=== PATIENT | female | born 1985 | race Caucasian/White ===

== ENCOUNTER → 2018-03-02 | Outpatient (CLI) | payer OTHER ==
[2018-03-02 15:48] LABS: Basophils % (A) 1 %; Eosinophils # (A) 0.2 k/uL (0-0.7); Eosinophils % (A) 3 %; HCT 43.6 % (34.0-46.0); HGB 14.8 gm/dL (11.4-16.0); Lymphocytes # (A) 1.7 k/uL (1.0-4.8); Lymphocytes % (A) 26 %; MCH 28.6 pg (25.0-35.0); MCHC 33.8 g/dL (31.0-37.0); MCV 84.7 fL (80.0-100.0); Mean Platelet Volume 8.4; Monocytes # (A) 0.4 k/uL (0-1.0); Monocytes % (A) 6 %; Neutrophils # (A) 4.3 k/uL (1.3-7.7); Neutrophils % (A) 64 %; Platelet Count 252 k/uL (150-450); RBC 5.15 m/uL (3.80-5.40); RDW 13.8 % (11.5-15.5); WBC 6.8 k/uL (3.8-10.6)
[2018-03-02 16:06] LABS: ALT 34 U/L (9-52); AST 24 U/L (14-36); Albumin 4.6 g/dL (3.5-5.0); Alkaline Phosphatase 102 U/L (38-126); Anion Gap 12 mmol/L; Blood Urea Nitrogen 13 mg/dL (7-17); Calcium 9.8 mg/dL (8.4-10.2); Carbon Dioxide 26 mmol/L (22-30); Chloride 104 mmol/L (98-107); Glucose 108 mg/dL (74-99); Magnesium 1.8 mg/dL (1.6-2.3); Potassium 4.5 mmol/L (3.5-5.1); Sodium 142 mmol/L (137-145); Total Bilirubin 0.4 mg/dL (0.2-1.3); Total Protein 7.3 g/dL (6.3-8.2)
== END | disposition home or self-care (01) ==
LOC: LABWHC1 15:26
PROVIDERS: ATTEND Internal Medicine Medical Oncology
DX: C54.1 Malignant neoplasm of endometrium (principal)
CPT/HCPCS: 36415; 80053; 83735; 85025

== ENCOUNTER 2018-11-16 22:01 | Emergency (ER) | payer MEDICARE, OTHER ==
[2018-11-16 22:28] LABS: Glucose,Whole Blood 264 mg/dL (75-99)
--- NOTE | 2018-11-16 22:28 | ED ---
Neuro HPI - General Stated Complaint: Stroke Time Seen by Provider: 11/16/18 22:06 Source: patient, EMS Mode of arrival: EMS Limitations: no limitations - History of Present Illness Is the patient presenting with stroke symptoms?: Yes Last Known Well Date: 11/16/18 Last Known Well Time: 20:30 -: hour(s) (2) Initial Comments: This patient is a 33-year-old woman who presents to be evaluated for possible stroke. The patient relates that she was driving tonight between 8 and 8:30 PM when she felt like the left side of her body was going numb. The patient stopped and had her niece drive her home. Was reported that she developed left sided weakness. EMS was called and further examined the patient had significant left-sided arm and leg weakness. Patient denies other symptoms. History reveals she had very similar presentation in 2016, and was seen at [facility] in [place], [place]. She states that she made a full recovery with no deficit. Location: left arm, left leg History of same: Yes Place: outdoors Severity: moderate Quality: weak, numb Improves With: time Worsens With: none On Anticoagulants: No Context: sudden onset Associated Symptoms: denies other symptoms Treatments Prior to Arrival: oxygen - Related Data Home Medications: Home Medications Medication Instructions Recorded Confirmed Insulin Aspart [NovoLOG Flexpen] See Protocol SQ AC-TID 11/16/18 11/16/18 Insulin Glargine,Hum.rec.anlog 12 unit SQ HS 11/16/18 11/16/18 [Basaglar Kwikpen U-100] Zolpidem Tartrate [Ambien] 10 mg PO HS PRN 11/16/18 11/16/18 metFORMIN HCL 1,000 mg PO BID 11/16/18 11/16/18 oxyCODONE-APAP 10-325MG [Percocet 1 tab PO QID PRN 11/16/18 11/16/18 10-325 mg] Allergies/Adverse Reactions: Allergies Allergy/AdvReac Type Severity Reaction Status Date / Time ampicillin Allergy Unknown Verified 11/16/18 22:24 Childhood ciprofloxacin [From Cipro] Allergy Anaphylaxis Verified 11/16/18 22:24 hydromorphone [From Dilaudid] Allergy Rash/Hives Verified 11/16/18 22:24 promethazine [From Phenergan] Allergy Rash/Hives Verified 11/16/18 22:24 Review of Systems ROS Statement: Those systems with pertinent positive or pertinent negative responses have been documented in the HPI. ROS Other: All systems not noted in ROS Statement are negative. Constitutional: Denies: fever, chills Eyes: Denies: vision change ENT: Denies: hearing loss Respiratory: Denies: cough, dyspnea Cardiovascular: Denies: chest pain, palpitations, orthopnea, syncope Gastrointestinal: Denies: abdominal pain, vomiting, diarrhea Genitourinary: Denies: dysuria, hematuria Musculoskeletal: Denies: back pain Skin: Reports: rash Neurological: Reports: weakness. Denies: headache, numbness, paresthesias, confusion Hematological/Lymphatic: Denies: easy bleeding General Exam General appearance: alert, in no apparent distress Head exam: Present: atraumatic, normocephalic Eye exam: Present: normal appearance. Absent: scleral icterus, conjunctival injection ENT exam: Present: normal oropharynx Neck exam: Present: normal inspection, full ROM Respiratory exam: Present: normal lung sounds bilaterally. Absent: respiratory distress, wheezes, rales, rhonchi, stridor Cardiovascular Exam: Present: regular rate, normal rhythm, normal heart sounds. Absent: systolic murmur, diastolic murmur, rubs, gallop GI/Abdominal exam: Present: soft. Absent: distended, tenderness, guarding, rebound, rigid, mass Extremities exam: Present: normal inspection, normal capillary refill. Absent: pedal edema, calf tenderness Back exam: Present: normal inspection. Absent: CVA tenderness (R), CVA tenderness (L) Neurological exam: Present: alert, oriented X3, CN II-XII intact. Absent: motor sensory deficit Expanded Neurological exam: Present: protecting the airway Patient oriented to: Present: person, place, time Speech: Present: fluid speech Cranial nerves: EOM's Intact: Normal, Gag Reflex: Normal, Tongue Deviation: Normal, Facial Sensation: Normal, Facial Palsy with Forehead Movement: Normal, Facial Palsy without Forehead Movement: Normal Motor strength exam: RUE: 5, LUE: 5, RLE: 5, LLE: 5 Eye Response: (4) open spontaneously Motor Response: (6) obeys commands Verbal Response: (5) oriented Skin exam: Present: warm, dry, intact, normal color. Absent: rash Stroke MDM - Lab Data Result diagrams: 11/16/18 22:29 11/16/18 22:29 Lab Results 11/16/18 11/16/18 11/16/18 Range/Units 22:16 22:29 22:29 WBC 8.1 (3.8-10.6) k/uL RBC 4.46 (3.80-5.40) m/uL Hgb 13.3 (11.4-16.0) gm/dL Hct 40.5 (34.0-46.0) % MCV 90.9 (80.0-100.0) fL MCH 29.9 (25.0-35.0) pg MCHC 32.9 (31.0-37.0) g/dL RDW 13.6 (11.5-15.5) % Plt Count 189 (150-450) k/uL Neutrophils % 68 % Lymphocytes % 23 % Monocytes % 5 % Eosinophils % 3 % Basophils % 1 % Neutrophils # 5.5 (1.3-7.7) k/uL Lymphocytes # 1.8 (1.0-4.8) k/uL Monocytes # 0.4 (0-1.0) k/uL Eosinophils # 0.2 (0-0.7) k/uL Basophils # 0.0 (0-0.2) k/uL PT (9.0-12.0) sec INR (<1.2) APTT (22.0-30.0) sec Sodium (137-145) mmol/L Potassium (3.5-5.1) mmol/L Chloride (98-107) mmol/L Carbon Dioxide (22-30) mmol/L Anion Gap mmol/L BUN (7-17) mg/dL Creatinine (0.52-1.04) mg/dL Est GFR (CKD-EPI)AfAm (>60 ml/min/1.73 sqM) Est GFR (CKD-EPI)NonAf (>60 ml/min/1.73 sqM) Glucose (74-99) mg/dL POC Glucose (mg/dL) 264 H (75-99) mg/dL POC Glu Soap Boiler ID Shira Kaplan Calcium (8.4-10.2) mg/dL Total Bilirubin (0.2-1.3) mg/dL AST (14-36) U/L ALT (9-52) U/L Alkaline Phosphatase (38-126) U/L Total Creatine Kinase 65 (30-135) U/L CK-MB (CK-2) 0.3 (0.0-2.4) ng/mL CK-MB (CK-2) Rel Index 0.5 Troponin I <0.012 (0.000-0.034) ng/mL Total Protein (6.3-8.2) g/dL Albumin (3.5-5.0) g/dL 11/16/18 11/16/18 Range/Units 22:29 22:29 WBC (3.8-10.6) k/uL RBC (3.80-5.40) m/uL Hgb (11.4-16.0) gm/dL Hct (34.0-46.0) % MCV (80.0-100.0) fL MCH (25.0-35.0) pg MCHC (31.0-37.0) g/dL RDW (11.5-15.5) % Plt Count (150-450) k/uL Neutrophils % % Lymphocytes % % Monocytes % % Eosinophils % % Basophils % % Neutrophils # (1.3-7.7) k/uL Lymphocytes # (1.0-4.8) k/uL Monocytes # (0-1.0) k/uL Eosinophils # (0-0.7) k/uL Basophils # (0-0.2) k/uL PT 10.2 (9.0-12.0) sec INR 0.9 (<1.2) APTT 23.3 (22.0-30.0) sec Sodium 137 (137-145) mmol/L Potassium 3.8 (3.5-5.1) mmol/L Chloride 103 (98-107) mmol/L Carbon Dioxide 25 (22-30) mmol/L Anion Gap 9 mmol/L BUN 17 (7-17) mg/dL Creatinine 0.61 (0.52-1.04) mg/dL Est GFR (CKD-EPI)AfAm >90 (>60 ml/min/1.73 sqM) Est GFR (CKD-EPI)NonAf >90 (>60 ml/min/1.73 sqM) Glucose 249 H (74-99) mg/dL POC Glucose (mg/dL) (75-99) mg/dL POC Glu Soap Boiler ID Calcium 8.8 (8.4-10.2) mg/dL Total Bilirubin 0.3 (0.2-1.3) mg/dL AST 16 (14-36) U/L ALT 29 (9-52) U/L Alkaline Phosphatase 102 (38-126) U/L Total Creatine Kinase (30-135) U/L CK-MB (CK-2) (0.0-2.4) ng/mL CK-MB (CK-2) Rel Index Troponin I (0.000-0.034) ng/mL Total Protein 6.4 (6.3-8.2) g/dL Albumin 3.6 (3.5-5.0) g/dL Past Medical History Past Medical History: Cancer Additional Past Medical History / Comment(s): stage 3 uterus cancer History of Any Multi-Drug Resistant Organisms: None Reported Past Surgical History: Adenoidectomy, Hysterectomy, Tonsillectomy Past Psychological History: Anxiety Smoking Status: Current every day smoker Past Alcohol Use History: Rare Past Drug Use History: None Reported Course Vital Signs 11/16/18 11/16/18 11/16/18 22:18 22:25 22:40 Temperature 98.3 F Pulse Rate 78 91 94 Respiratory 18 18 18 Rate Blood Pressure 153/85 136/96 135/85 O2 Sat by Pulse 98 97 96 Oximetry 11/16/18 11/16/18 11/17/18 22:55 23:10 00:00 Temperature Pulse Rate 94 94 102 H Respiratory 18 16 18 Rate Blood Pressure 135/85 134/77 102/72 O2 Sat by Pulse 97 100 98 Oximetry 11/17/18 11/17/18 11/17/18 00:48 01:48 02:06 Temperature 98.1 F Pulse Rate 87 98 Respiratory 16 18 Rate Blood Pressure 116/80 105/78 O2 Sat by Pulse 98 95 Oximetry - Reevaluation(s) Reevaluation #1: 11/17/18 00:52 The case is discussed with Dr. Talbot with the stroke team who sts that given the rapid resolution of her symptoms, she is not TPA candidate. I discussed with patient that she does require neurology consultation and discussed options for this and she requests to go to [facility]. I discussed case with Dr. Mostello there who will accept patient for transfer. Disposition Clinical Impression: Transient cerebral ischemia Disposition: OTHER INSTITUTION NOT DEFINED Condition: Fair Is patient prescribed a controlled substance at d/c from ED?: No Referrals: None,Stated [REFERRING] - 1-2 days - Out of Hospital Transfer - Req. Specs Out of Hospital Transfer - Requested Specifics: Other Emergency Center
--- NOTE | 2018-11-16 22:32 | CT ---
EXAM: CT Head Without Intravenous Contrast CLINICAL HISTORY: Neuro Deficits TECHNIQUE: Axial computed tomography images of the head/brain without intravenous contrast. DLP is 1005 mGy-cm. This CT exam was performed using one or more of the following dose reduction techniques: automated exposure control, adjustment of the mA and/or kV according to patient size, and/or use of iterative reconstruction technique. COMPARISON: No relevant prior studies available. FINDINGS: Brain: Unremarkable. No hemorrhage. No significant white matter disease. No edema. Ventricles: Unremarkable. No ventriculomegaly. Bones/joints: Unremarkable. No acute fracture. Soft tissues: Unremarkable. Sinuses: Unremarkable as visualized. No acute sinusitis. Mastoid air cells: Unremarkable as visualized. No mastoid effusion. IMPRESSION: Normal head/brain CT.
[2018-11-16 22:41] LABS: Basophils % (A) 1 %; Eosinophils # (A) 0.2 k/uL (0-0.7); Eosinophils % (A) 3 %; HCT 40.5 % (34.0-46.0); HGB 13.3 gm/dL (11.4-16.0); Lymphocytes # (A) 1.8 k/uL (1.0-4.8); Lymphocytes % (A) 23 %; MCH 29.9 pg (25.0-35.0); MCHC 32.9 g/dL (31.0-37.0); MCV 90.9 fL (80.0-100.0); Mean Platelet Volume 8.3; Monocytes # (A) 0.4 k/uL (0-1.0); Monocytes % (A) 5 %; Neutrophils # (A) 5.5 k/uL (1.3-7.7); Neutrophils % (A) 68 %; Platelet Count 189 k/uL (150-450); RBC 4.46 m/uL (3.80-5.40); RDW 13.6 % (11.5-15.5); WBC 8.1 k/uL (3.8-10.6)
[2018-11-16 22:49] LABS: ALT 29 U/L (9-52); AST 16 U/L (14-36); Albumin 3.6 g/dL (3.5-5.0); Alkaline Phosphatase 102 U/L (38-126); Anion Gap 9 mmol/L; Blood Urea Nitrogen 17 mg/dL (7-17); Calcium 8.8 mg/dL (8.4-10.2); Carbon Dioxide 25 mmol/L (22-30); Chloride 103 mmol/L (98-107); Glucose 249 mg/dL (74-99); Potassium 3.8 mmol/L (3.5-5.1); Sodium 137 mmol/L (137-145); Total Bilirubin 0.3 mg/dL (0.2-1.3); Total Protein 6.4 g/dL (6.3-8.2)
[2018-11-16 22:56] LABS: INR 0.9 (<1.2); Partial Thromboplastin Time 23.3 sec (22.0-30.0); Prothrombin Time 10.2 sec (9.0-12.0)
[2018-11-16 22:58] LABS: Creatine Kinase 65 U/L (30-135)
[2018-11-16 23:11] LABS: Creatine Kinase MB 0.3 ng/mL (0.0-2.4); Troponin I <0.012 ng/mL (0.000-0.034)
--- NOTE | 2018-11-16 23:30 | XR ---
EXAM: XR Chest, 1 View CLINICAL HISTORY: altered mental status TECHNIQUE: Frontal view of the chest. COMPARISON: No relevant prior studies available. FINDINGS: Lungs: Unremarkable. No consolidation. Pleural space: Unremarkable. No pneumothorax. Heart: Unremarkable. No cardiomegaly. Mediastinum: Unremarkable. Bones/joints: Unremarkable. IMPRESSION: Unremarkable appearance to the lungs.
--- NOTE | 2018-11-16 23:30 | CT ---
EXAM: CT Angiography Head With Intravenous Contrast CLINICAL HISTORY: Neuro Deficits TECHNIQUE: Axial computed tomographic angiography images of the head with intravenous contrast using CT angiography protocol. 65ml of Isovue 370/35ml wasted and 50ml saline. DLP is 634 mGy-cm. This CT exam was performed using one or more of the following dose reduction techniques: automated exposure control, adjustment of the mA and/or kV according to patient size, and/or use of iterative reconstruction technique. 3D and MIP reconstructed images were created and reviewed. Coronal and sagittal reformatted images were created and reviewed. COMPARISON: No relevant prior studies available. FINDINGS: Right internal carotid artery: No acute findings. Intracranial segment is patent with no significant stenosis. No aneurysm. Right anterior cerebral artery: Unremarkable. No occlusion or significant stenosis. No aneurysm. Right middle cerebral artery: Unremarkable. No occlusion or significant stenosis. No aneurysm. Right posterior cerebral artery: Unremarkable. No occlusion or significant stenosis. No aneurysm. Right vertebral artery: Unremarkable as visualized. Left internal carotid artery: No acute findings. Intracranial segment is patent with no significant stenosis. No aneurysm. Left anterior cerebral artery: Unremarkable. No occlusion or significant stenosis. No aneurysm. Left middle cerebral artery: Unremarkable. No occlusion or significant stenosis. No aneurysm. Left posterior cerebral artery: Unremarkable. No occlusion or significant stenosis. No aneurysm. Left vertebral artery: Unremarkable as visualized. Basilar artery: Unremarkable. No occlusion or significant stenosis. No aneurysm. IMPRESSION: Normal head CTA. EXAM: CT Angiography Neck With Intravenous Contrast CLINICAL HISTORY: CT Reason: Neuro Deficits TECHNIQUE: Axial computed tomographic angiography images of the neck with intravenous contrast using CT angiography protocol. 65ml of Isovue 370/35ml wasted and 50ml saline. DLP is 634 mGy-cm. This CT exam was performed using one or more of the following dose reduction techniques: automated exposure control, adjustment of the mA and/or kV according to patient size, and/or use of iterative reconstruction technique. 3D and MIP reconstructed images were created and reviewed. Coronal and sagittal reformatted images were created and reviewed. Oblique reformatted images were created and reviewed. COMPARISON: No relevant prior studies available. FINDINGS: VASCULATURE: Right common carotid artery: Unremarkable. No significant stenosis. No dissection or occlusion. Right internal carotid artery: Unremarkable. Extracranial segment is patent with no significant stenosis. No dissection or occlusion. Right external carotid artery: Unremarkable. No occlusion. Right vertebral artery: Unremarkable. No significant stenosis. No dissection or occlusion. Left common carotid artery: Unremarkable. No significant stenosis. No dissection or occlusion. Left internal carotid artery: Unremarkable. Extracranial segment is patent with no significant stenosis. No dissection or occlusion. Left external carotid artery: Unremarkable. No occlusion. Left vertebral artery: Unremarkable. No significant stenosis. No dissection or occlusion. NECK: Bones/joints: No acute fracture. No dislocation. Soft tissues: Unremarkable as visualized. No mass. CAROTID STENOSIS REFERENCE USING NASCET CRITERIA: % ICA stenosis = (1 - narrowest ICA diameter/diameter of distal cervical ICA) x 100. Mild - <50% stenosis. Moderate - 50-69% stenosis. Severe - 70-94% stenosis. Near occlusion - 95-99% stenosis. Occluded - 100% stenosis. IMPRESSION: Normal neck CTA.
[2018-11-17] MEDS ORDERED: oxyCODONE-APAP 10-325MG 1 EACH TAB PO STA (00:50)
[2018-11-17] MEDS ORDERED: ASPIRIN 81 MG PO STA (00:54)
[2018-11-17 01:52] VITALS: BP 105/78; PULSE 98; RESP 18
[2018-11-17 02:07] VITALS: TEMP 98.1
== END 2018-11-17 02:09 | disposition short-term general hospital (02) ==
LOC: EC 22:01
DX: G45.9 Transient cerebral ischemic attack, unspecified (principal); F17.200 Nicotine dependence, unspecified, uncomplicated; Z88.0 Allergy status to penicillin; Z88.1 Allergy status to other antibiotic agents; Z88.5 Allergy status to narcotic agent; Z88.8 Allergy status to other drugs, medicaments and biological substances; Z79.4 Long term (current) use of insulin; Z85.42 Personal history of malignant neoplasm of other parts of uterus; Z90.710 Acquired absence of both cervix and uterus
CPT/HCPCS: 99285; 36415; 93005; 80053; 82550; 82553; 84484; 85025; 85610; 85730; 71045; 70496; 70450; 70498; Q9967

== ENCOUNTER 2019-08-09 08:25 | Day surgery (SDC) | payer MEDICARE, OTHER ==
[2019-08-07 16:17] VITALS: BMI 44.2
[~2019-08-09 08:25] MED LIST: LACTATED RINGERS 1,000 ML IV SCH; ONDANSETRON 4 MG/2 ML VIAL IVP PRN
[2019-08-09 08:55] VITALS: TEMP 97.4
[2019-08-09] MEDS ORDERED: LIDOCAINE 1% 20 ML VIAL (10MG/ML) FOR IV START INTRADERMA ONE (08:55)
[2019-08-09] MEDS ORDERED: LACTATED RINGERS 1,000 ML IV ONE (08:55)
[2019-08-09 09:03] LABS: Glucose,Whole Blood 144 mg/dL (75-99)
[2019-08-09] MEDS ORDERED: LIDOCAINE 1% INJ 10MG/ML (20 ML MDV) ONE (09:24)
[2019-08-09] MEDS ORDERED: KETAMINE 10 MG/ML 20 ML VIAL ONE (09:24)
[2019-08-09] MEDS ORDERED: PROPOFOL 10 MG/ML 20 ML VIAL IV ONE (09:24)
[2019-08-09] MEDS ORDERED: MIDAZOLAM 2 MG/2 ML VIAL ONE (09:24)
[2019-08-09] MEDS ORDERED: GLYCOPYRROLATE 0.2 MG/ML 2 ML VIAL ONE (09:24)
[2019-08-09] MEDS ORDERED: fentaNYL (PF) 50 MCG/ML 2 ML AMP ONE (09:24)
--- NOTE | 2019-08-09 10:10 | P.PCN ---
Date of Procedure: 08/09/19 Description of Procedure: Brief history: Patient is a pleasant scheduled for an elective upper endoscopy as well as colonoscopy as a part of evaluation of nausea and vomiting, and altered/change in bowel habits. Procedure performed: Esophagogastroduodenoscopy with biopsy Colonoscopy with biopsy and polypectomy Estimated blood loss: Minimal. Preoperative diagnosis: Nausea and vomiting, altered bowel habits Anesthesia: MAC Procedure: After informed consent was obtained from the patient was brought into the endoscopy unit and IV sedation was administered by anesthesia under continuous monitoring. Initially upper endoscopy was done. The Olympus GF 190 video endoscope was inserted into the mouth and esophagus intubated without any difficulty and was gradually advanced into the stomach and duodenum and carefully examined. The bulb and second part of the duodenum appeared normal, with biopsies taken to rule out celiac sprue. The scope was then withdrawn into the stomach adequately insufflated with air and upon careful examination the antrum and body, cardia and fundus appeared normal, with biopsies taken to rule out Helicobacter pylori. The scope was then withdrawn into the esophagus. The GE junction was located at 35 cm to the incisors, with biopsies taken to rule out evidence of reflux esophagitis. It appeared regular with no erythema erosions or ulcerations. Rest of the esophagus appeared normal. Patient tolerated the procedure well. At this time the patient continued to remain sedation. Initial digital rectal examination was normal. Olympus CF 190 video colonoscope was then inserted into the rectum and gradually advanced to the cecum without any difficulty. Careful examination was performed as the scope was gradually being withdrawn. The terminal ileum was intubated and appeared normal and biopsies. The prep was excellent. The cecum, ascending colon, transverse colon, descending colon, sigmoid colon and rectum appeared normal, with random biopsies taken of the right and left colon given altered bowel habits to rule out microscopic colitis. Diminutive 2 mm descending colon polyp removed with cold forcep polypectomy. Retroflexion was performed in the rectum and no lesions were noted. Patient tolerated the procedure well. Impression: 1. Normal upper endoscopy with no pathology seen. Biopsies taken of the GE junction, antrum and body, and duodenum. 2. Diminutive descending colon polyp removed with cold forceps. Biopsies of the terminal ileum, right colon and left colon. Recommendations: Findings of this examination were discussed with the patient. Okay to resume diet and medications. Continue current medical management. Await pathology from biopsies. Follow up in gastroenterology clinic as previously scheduled. Repeat colonoscopy in 5 years for history of colon polyps.
[2019-08-09 10:14] LABS: Glucose,Whole Blood 143 mg/dL (75-99)
[2019-08-09 10:50] VITALS: BP 120/87; PULSE 68; RESP 18
== END 2019-08-09 12:34 | disposition home or self-care (01) ==
LOC: ORWHC2ENDO 08:25
PROVIDERS: ATTEND Internal Medicine
DX: K29.50 Unspecified chronic gastritis without bleeding (principal); K21.0 Gastro-esophageal reflux disease with esophagitis; D12.4 Benign neoplasm of descending colon; J45.909 Unspecified asthma, uncomplicated; F17.200 Nicotine dependence, unspecified, uncomplicated; Z86.73 Personal history of transient ischemic attack (TIA), and cerebral infarction without residual deficits; Z79.899 Other long term (current) drug therapy; E11.9 Type 2 diabetes mellitus without complications; Z79.4 Long term (current) use of insulin
CPT/HCPCS: 88305; 45380; 43239; J2250; J2001; J3010; J2704

== ENCOUNTER → 2019-08-28 | Outpatient (CLI) | payer MEDICARE, OTHER ==
[2019-08-29 01:17] LABS: Amylase 35 U/L (23-121); C Reactive Protein <0.4 mg/dL (0.0-0.8)
== END | disposition home or self-care (01) ==
LOC: LABWHC1 15:19
PROVIDERS: ATTEND Internal Medicine
DX: R19.4 Change in bowel habit (principal)
CPT/HCPCS: 36415; 82150; 83690; 84439; 84443; 85652; 86140

== ENCOUNTER 2019-09-23 10:45 | Emergency (ER) | payer MEDICARE, OTHER ==
[2019-09-23] MEDS ORDERED: ADENOSINE 3 MG/ML 2 ML VIAL IVP STA (11:11)
[2019-09-23] MEDS ORDERED: SODIUM CHLORIDE 0.9% 1,000 ML IV STA (11:23)
[2019-09-23 11:40] LABS: Basophils # (A) 0.1 k/uL (0-0.2); Basophils % (A) 1 %; Eosinophils # (A) 0.2 k/uL (0-0.7); Eosinophils % (A) 2 %; HCT 40.9 % (34.0-46.0); Lymphocytes # (A) 2.9 k/uL (1.0-4.8); Lymphocytes % (A) 23 %; MCH 29.9 pg (25.0-35.0); MCHC 34.1 g/dL (31.0-37.0); MCV 87.5 fL (80.0-100.0); Mean Platelet Volume 9.6; Monocytes # (A) 0.7 k/uL (0-1.0); Monocytes % (A) 5 %; Neutrophils # (A) 8.4 k/uL (1.3-7.7); Neutrophils % (A) 68 %; Platelet Count 321 k/uL (150-450); RBC 4.67 m/uL (3.80-5.40); WBC 12.5 k/uL (3.8-10.6)
--- NOTE | 2019-09-23 11:40 | ED ---
General Adult HPI - General Chief complaint: Neuro Symptoms/Deficit Stated complaint: Lightheadedness Time Seen by Provider: 09/23/19 11:08 Source: patient, RN notes reviewed Mode of arrival: wheelchair Limitations: no limitations - History of Present Illness Initial comments: patient is a pleasant 34-year-old female presenting to the emergency Department with complaints of lightheadedness. Onset of symptoms was prior to arrival while in alevism. Patient also has palpitations. Patient feels that her heart is racing. Patient states palpitations or not as severe as it were previously. There is some mild associated tightness. No confusion. Patient did not pass out. No history of similar symptoms previously. No history of arrhythmia. - Related Data Home Medications Medication Instructions Recorded Confirmed Insulin Glargine,Hum.rec.anlog 18 unit SQ HS 11/16/18 09/23/19 [Basaglar Hermelindopen U-100] metFORMIN HCL 750 mg PO HS 11/16/18 09/23/19 oxyCODONE-APAP 10-325MG [Percocet 1 tab PO Q6H PRN 11/16/18 09/23/19 10-325 mg] Atorvastatin [Lipitor] 40 mg PO DAILY 08/08/19 09/23/19 Biotin 20,000 mcg PO BID 08/08/19 09/23/19 Dicyclomine [Bentyl] 20 mg PO QID PRN 08/08/19 09/23/19 Famotidine [Pepcid] 40 mg PO HS 08/08/19 09/23/19 Lisinopril [Zestril] 5 mg PO DAILY 08/08/19 09/23/19 Melatonin 5 - 10 mg PO HS PRN 08/08/19 09/23/19 Pantoprazole Sodium [Protonix] 40 mg PO DAILY 08/08/19 09/23/19 Prochlorperazine Maleate 10 mg PO Q8H PRN 08/08/19 09/23/19 SUMAtriptan SUCCINATE [Imitrex] 25 mg PO ONCE PRN 08/08/19 09/23/19 Topiramate [Topamax] 50 mg PO BID 08/08/19 09/23/19 tiZANidine [Zanaflex] 2 mg PO Q8HR PRN 08/08/19 09/23/19 INSULIN ASPART (NovoLOG) [NovoLOG See Protocol SQ AC-TID 09/23/19 09/23/19 (formulary)] Allergies Allergy/AdvReac Type Severity Reaction Status Date / Time ampicillin Allergy Unknown Verified 09/23/19 11:49 Childhood ciprofloxacin [From Cipro] Allergy Anaphylaxis Verified 09/23/19 11:49 hydromorphone [From Dilaudid] Allergy Rash/Hives Verified 09/23/19 11:49 promethazine [From Phenergan] Allergy Rash/Hives Verified 09/23/19 11:49 Review of Systems ROS Statement: Those systems with pertinent positive or pertinent negative responses have been documented in the HPI. ROS Other: All systems not noted in ROS Statement are negative. Constitutional: Denies: fever Eyes: Denies: eye pain ENT: Denies: ear pain Respiratory: Denies: cough, dyspnea Cardiovascular: Reports: as per HPI, palpitations Endocrine: Denies: fatigue Gastrointestinal: Denies: abdominal pain Genitourinary: Denies: dysuria Musculoskeletal: Denies: back pain Skin: Denies: lesions Neurological: Denies: headache Past Medical History Past Medical History: Asthma, Cancer, CVA/TIA, Diabetes Mellitus, GERD/Reflux Additional Past Medical History / Comment(s): stage 3 uterine cancer 2015, frequent nausea,vomiting & diarrhea for several months, TIA 2015, 2018-no residual effects History of Any Multi-Drug Resistant Organisms: None Reported Past Surgical History: Adenoidectomy, Hysterectomy, Tonsillectomy Additional Past Surgical History / Comment(s): colonoscopy Past Anesthesia/Blood Transfusion Reactions: No Reported Reaction Past Psychological History: Anxiety Smoking Status: Current every day smoker Past Alcohol Use History: None Reported Past Drug Use History: None Reported General Exam Limitations: no limitations General appearance: alert, in no apparent distress Head exam: Present: normocephalic Eye exam: Present: normal appearance, PERRL ENT exam: Present: normal oropharynx Neck exam: Present: normal inspection Respiratory exam: Present: normal lung sounds bilaterally Cardiovascular Exam: Present: tachycardia Expanded Peripheral pulses: 2+: Radial (R), Radial (L), Posterior Tibialis (R), Posterior Tibialis (L), Dorsalis Pedis (R), Dorsalis Pedis (L) GI/Abdominal exam: Present: soft. Absent: tenderness Extremities exam: Present: normal inspection. Absent: pedal edema, calf ten derness Neurological exam: Present: alert, oriented X3, CN II-XII intact. Absent: motor sensory deficit Expanded Motor strength exam: RUE: 5, LUE: 5, RLE: 5, LLE: 5 Eye Response: (4) open spontaneously Motor Response: (6) obeys commands Verbal Response: (5) oriented Psychiatric exam: Present: normal affect, normal mood Skin exam: Present: normal color Course Vital Signs 09/23/19 09/23/19 09/23/19 10:50 11:19 12:03 Temperature 98.2 F Pulse Rate 109 H 96 Pulse Rate [ 189 H Public Speaker ] Respiratory 18 20 Rate Blood Pressure 85/51 103/68 O2 Sat by Pulse 98 96 Oximetry - Reevaluation(s) Reevaluation #1: 09/23/19 11:39 repeat EKG shows normal sinus rhythm at 100. KS 150. QRS 92. QT 316. QTC 407. Normal axis. Normal QRS. No acute ST change. Patient feels significantly better following chemical cardioversion EKG Findings - EKG Comments: EKG Findings:: SVT with rate of 188. QRS 84. QT to 40. QTc 424. Normal axis. Normal QRS. Nonspecific ST-T. Procedures - Procedures Initial comment: patient did give verbal consent. Patient was chemically cardioverted with adenosine 6 mg without complication. Heart rate returned to normal sinus rhythm. Patient near symptom-free immediately following procedure. Medical Decision Making - Medical Decision Making Patient again reexamined and symptom-free. Patient updated on results and need for follow-up. Patient advised to avoid caffeine and stimulants and energy drinks. - Lab Data Result diagrams: 09/23/19 11:10 09/23/19 11:10 Lab Results 09/23/19 09/23/19 09/23/19 Range/Units 11:10 11:10 11:10 WBC 12.5 H (3.8-10.6) k/uL RBC 4.67 (3.80-5.40) m/uL Hgb 14.0 (11.4-16.0) gm/dL Hct 40.9 (34.0-46.0) % MCV 87.5 (80.0-100.0) fL MCH 29.9 (25.0-35.0) pg MCHC 34.1 (31.0-37.0) g/dL RDW 13.0 (11.5-15.5) % Plt Count 321 (150-450) k/uL Neutrophils % 68 % Lymphocytes % 23 % Monocytes % 5 % Eosinophils % 2 % Basophils % 1 % Neutrophils # 8.4 H (1.3-7.7) k/uL Lymphocytes # 2.9 (1.0-4.8) k/uL Monocytes # 0.7 (0-1.0) k/uL Eosinophils # 0.2 (0-0.7) k/uL Basophils # 0.1 (0-0.2) k/uL PT 10.4 (9.0-12.0) sec INR 1.0 (<1.2) APTT 24.7 (22.0-30.0) sec Sodium 138 (137-145) mmol/L Potassium 4.3 (3.5-5.1) mmol/L Chloride 108 H (98-107) mmol/L Carbon Dioxide 19 L (22-30) mmol/L Anion Gap 11 mmol/L BUN 22 H (7-17) mg/dL Creatinine 1.06 H (0.52-1.04) mg/dL Est GFR (CKD-EPI)AfAm 79 (>60 ml/min/1.73 sqM) Est GFR (CKD-EPI)NonAf 68 (>60 ml/min/1.73 sqM) Glucose 213 H (74-99) mg/dL Calcium 9.9 (8.4-10.2) mg/dL Magnesium 1.6 (1.6-2.3) mg/dL Total Bilirubin 0.6 (0.2-1.3) mg/dL AST 28 (14-36) U/L ALT 22 (4-34) U/L Alkaline Phosphatase 110 (38-126) U/L Total Protein 7.3 (6.3-8.2) g/dL Albumin 4.4 (3.5-5.0) g/dL TSH 7.980 H (0.465-4.680) mIU/L Free T4 1.46 (0.78-2.19) ng/dL Free T3 pg/mL 4.0 (2.8-5.3) pg/ml Critical Care Time Critical Care Time: Yes Total Critical Care Time: 33 Disposition Clinical Impression: SVT (supraventricular tachycardia) Disposition: HOME SELF-CARE Condition: Stable Instructions (If sedation given, give patient instructions): Supraventricular Tachycardia (ED) Additional Instructions: please follow-up with primary care physician in the next couple days for recheck. Also consider cardiology follow-up. Limit caffeine. No energy drinks or diet pills or similar. Return for increased heart rate, difficulty breathing, worsening symptoms or other concerns. Is patient prescribed a controlled substance at d/c from ED?: No Referrals: Jerilyn Knott MD [Primary Care Provider] - 1-2 days Subhash Leonard MD [STAFF PHYSICIAN] - 1-2 days Time of Disposition: 12:50
[2019-09-23 11:48] LABS: Albumin 4.4 g/dL (3.5-5.0); Calcium 9.9 mg/dL (8.4-10.2); Magnesium 1.6 mg/dL (1.6-2.3); Potassium 4.3 mmol/L (3.5-5.1); Total Bilirubin 0.6 mg/dL (0.2-1.3); Total Protein 7.3 g/dL (6.3-8.2)
[2019-09-23 11:54] LABS: Partial Thromboplastin Time 24.7 sec (22.0-30.0); Prothrombin Time 10.4 sec (9.0-12.0)
[2019-09-23 12:05] LABS: T4, Free (Free Thyroxine) 1.46 ng/dL (0.78-2.19)
--- NOTE | 2019-09-23 12:37 | XR ---
EXAMINATION TYPE: XR chest 2V DATE OF EXAM: 09/23/2019 HISTORY: dysrhythmia. REFERENCE: Previous study dated 11/16/2018. FINDINGS: There is a MediPort in place via a right internal jugular approach. Its tip is in the super ior vena cava. The lungs are clear. Pleural space are clear. Heart size is normal. IMPRESSION: NO ACUTE INTRATHORACIC ABNORMALITY.
[2019-09-23 13:26] VITALS: BP 98/76; PULSE 76; RESP 18; TEMP 97.9
== END 2019-09-23 13:27 | disposition home or self-care (01) ==
LOC: EC 10:45
DX: I47.1 Supraventricular tachycardia (principal); E11.9 Type 2 diabetes mellitus without complications; K21.9 Gastro-esophageal reflux disease without esophagitis; F41.9 Anxiety disorder, unspecified; F17.200 Nicotine dependence, unspecified, uncomplicated; Z88.0 Allergy status to penicillin; Z88.1 Allergy status to other antibiotic agents; Z88.5 Allergy status to narcotic agent; Z88.8 Allergy status to other drugs, medicaments and biological substances; Z79.4 Long term (current) use of insulin; Z79.899 Other long term (current) drug therapy; Z85.42 Personal history of malignant neoplasm of other parts of uterus; Z90.710 Acquired absence of both cervix and uterus
CPT/HCPCS: 99285; 96374; 96361; 36415; 93005; 84439; 84481; 80053; 83735; 84443; 85025; 85610; 85730; 71046; J0153

== ENCOUNTER → 2019-11-06 | Outpatient (CLI) | payer MEDICARE, OTHER ==
[2019-11-06 14:50] LABS: African American GFR (CKD) >90 (>60 ml/min/1.73 sqM); Blood Urea Nitrogen 16 mg/dL (7-17); Non-African American GFR(CKD) >90 (>60 ml/min/1.73 sqM)
--- NOTE | 2019-11-06 15:49 | CT ---
EXAMINATION TYPE: CT ChestAbdPelvis w con DATE OF EXAM: 11/06/2019 COMPARISON: Prior PET/CT May 07, 2017. CT abdomen and pelvis April 04, 2019. HISTORY: follow up ovarian ca CT DLP: 2913 mGycm. Automated Exposure Control for Dose Reduction was Utilized. CONTRAST: CT scan of the thorax, abdomen and pelvis is performed with IV Contrast, patient injected with 100 mL of Isovue 300. FINDINGS: LUNGS: Some dependent atelectasis bilateral lower lobes. No suspicious nodules or masses. No pleural effusion or pneumothorax seen bilaterally. MEDIASTINUM: There are no greater than 1 cm hilar or mediastinal lymph nodes. No cardiomegaly or pe ricardial effusion is seen. OTHER: Stable right internal jugular Mediport catheter terminating at cavoatrial junction. LIVER/GB: No significant abnormality is appreciated. PANCREAS: No significant abnormality is seen. SPLEEN: No significant abnormality is seen. ADRENALS: No significant abnormality is seen. KIDNEYS: No significant abnormality is seen. BOWEL: Oral contrast reaches level of rectum. No suspicious small or large bowel dilatation. GENITAL ORGANS: Uterus is surgically absent. Stable surgical clip right pelvis segment 114. Additiona l surgical clip left pelvis axial image 108 redemonstrated. LYMPH NODES: No greater than 1cm abdominal or pelvic lymph nodes are appreciated. OSSEOUS STRUCTURES: Mild to moderate narrowing and mild spurring in both hip joints. Thoracic spine i s straightened on sagittal images. OTHER: Vertical scar overlying the midline of the lower abdomen and pelvis presumed from hysterectomy redemonstrated. IMPRESSION: No new suspicious mass or adenopathy to suggest neoplastic recurrence..
== END | disposition home or self-care (01) ==
LOC: RADCTMAIN 13:04
PROVIDERS: ATTEND Internal Medicine Hematology & Oncology
DX: Z03.89 Encounter for observation for other suspected diseases and conditions ruled out (principal); C56.9 Malignant neoplasm of unspecified ovary; Z88.1 Allergy status to other antibiotic agents; Z88.5 Allergy status to narcotic agent
CPT/HCPCS: 82565; 84520; 71260; 74177; 36415; Q9967 ×2

== ENCOUNTER → 2020-03-27 | Outpatient (CLI) | payer MEDICARE, OTHER | END | disposition home or self-care (01) | LOC: LABWHC1 08:48 | PROVIDERS: ATTEND Internal Medicine | DX: Z20.828 Contact with and (suspected) exposure to other viral communicable diseases (principal) ==

== ENCOUNTER 2020-03-28 10:38 | Emergency (ER) | payer MEDICARE, OTHER ==
[2020-03-28] MEDS ORDERED: SODIUM CHLORIDE 0.9% 1,000 ML IV ONE (11:03)
--- NOTE | 2020-03-28 11:14 | ED ---
Recheck HPI - General Chief Complaint: Recheck/Abnormal Lab/Rx Stated Complaint: high blood sugar/low calcium Time Seen by Provider: 03/28/20 10:52 Source: patient Mode of arrival: ambulatory Limitations: no limitations - History of Present Illness Initial Comments: 34-year-old female patient presents to the emergency department today for evaluation of abnormal labs. Patient had labs drawn on Tuesday at her oncologist office. They called her today and told her that her blood sugar was high and her calcium level was low. Patient is diabetic takes metformin and injectable insulin which she cannot recall the name of. States that she does check her blood sugars at home and she ranges between 150 and 300 on a daily basis. Patient states that she is otherwise feeling well. She does have a history of ovarian cancer currently in remission, last treatment was in July 2019. Patient denies any recent rash, fever, chills, cough, shortness of breath, chest pain, abdominal pain, nausea, vomiting, diarrhea, constipation, back pain, numbness, tingling, dizziness, weakness, hematuria, dysuria, urinary urgency, urinary frequency, headache, visual changes, or any other complaints. - Related Data Home Medications Medication Instructions Recorded Confirmed Insulin Glargine,Hum.rec.anlog 35 unit SQ HS 11/16/18 03/28/20 [Basaglar Kwikpen U-100] oxyCODONE-APAP 10-325MG [Percocet 1 tab PO Q6H PRN 11/16/18 03/28/20 10-325 mg] Atorvastatin [Lipitor] 40 mg PO DAILY 08/08/19 03/28/20 Famotidine [Pepcid] 40 mg PO HS 08/08/19 03/28/20 Lisinopril [Zestril] 5 mg PO DAILY 08/08/19 03/28/20 Pantoprazole Sodium [Protonix] 40 mg PO DAILY 08/08/19 03/28/20 Prochlorperazine Maleate 10 mg PO Q8H PRN 08/08/19 03/28/20 Topiramate [Topamax] 50 mg PO DAILY 08/08/19 03/28/20 INSULIN ASPART (NovoLOG) [NovoLOG See Protocol SQ AC-TID 09/23/19 03/28/20 (formulary)] Metoprolol Succinate [Toprol XL] 25 mg PO DAILY 03/28/20 03/28/20 Vitamin C (Unknown Strength) 1 tab PO DAILY 03/28/20 03/28/20 metFORMIN HCL [metFORMIN HCL ER] 750 mg PO HS 03/28/20 03/28/20 Previous Rx's Medication Instructions Recorded Fluconazole [Diflucan] 150 mg PO ONCE #2 tab 03/28/20 Nystatin 100,000Unit/gm Cream 1 applic TOPICAL TID #15 gm 03/28/20 [Mycostatin Cream] Allergies Allergy/AdvReac Type Severity Reaction Status Date / Time ampicillin Allergy Unknown Verified 03/28/20 12:01 Childhood ciprofloxacin [From Cipro] Allergy Anaphylaxis Verified 03/28/20 12:01 hydromorphone [From Dilaudid] Allergy Rash/Hives Verified 03/28/20 12:01 promethazine [From Phenergan] Allergy Rash/Hives Verified 03/28/20 12:01 Review of Systems ROS Statement: Those systems with pertinent positive or pertinent negative responses have been documented in the HPI. ROS Other: All systems not noted in ROS Statement are negative. Past Medical History Past Medical History: Asthma, Cancer, CVA/TIA, Diabetes Mellitus, GERD/Reflux Additional Past Medical History / Comment(s): stage 3 uterine cancer 2015, frequent nausea,vomiting & diarrhea for several months, TIA 2015, 2018-no residual effects History of Any Multi-Drug Resistant Organisms: None Reported Past Surgical History: Adenoidectomy, Hysterectomy, Tonsillectomy Additional Past Surgical History / Comment(s): colonoscopy Past Anesthesia/Blood Transfusion Reactions: No Reported Reaction Past Psychological History: Anxiety Smoking Status: Current every day smoker Past Alcohol Use History: None Reported Past Drug Use History: None Reported General Exam Limitations: no limitations General appearance: alert, in no apparent distress, other (This is a well- developed, well-nourished adult female patient in no acute distress. Vital signs upon presentation are temperature 98.1F, pulse 112, respirations 18, respirations 18, blood pressure 128/88, pulse ox 97% on room air.) Eye exam: Present: normal appearance, PERRL, EOMI. Absent: scleral icterus, conjunctival injection, periorbital swelling ENT exam: Present: normal exam, normal oropharynx, mucous membranes moist Respiratory exam: Present: normal lung sounds bilaterally. Absent: respiratory distress, wheezes, rales, rhonchi, stridor Cardiovascular Exam: Present: regular rate, normal rhythm, normal heart sounds. Absent: systolic murmur, diastolic murmur, rubs, gallop, clicks GI/Abdominal exam: Present: soft, normal bowel sounds. Absent: distended, tenderness, guarding, rebound, rigid Neurological exam: Present: alert, oriented X3, CN II-XII intact Psychiatric exam: Present: normal affect, normal mood Skin exam: Present: warm, dry, intact, normal color. Absent: rash Course Vital Signs 03/28/20 03/28/20 10:46 11:48 Temperature 98.1 F 97.9 F Pulse Rate 112 H 94 Respiratory 18 17 Rate Blood Pressure 128/88 123/79 O2 Sat by Pulse 97 96 Oximetry Medical Decision Making - Medical Decision Making 34-year-old female patient was brought to the emergency department today for evaluation of abnormal labs. Her oncologist office sent her in for further evaluation of low calcium and elevated blood sugar. Patient is also reporting a rash to her labia, states it is itchy denies drainage. Visual inspection reveals yeast infection. Will order Diflucan and nystatin cream for her. Labs today reveal normal calcium blood sugar is elevated we did provide her with insulin coverage. She is instructed to follow-up with her primary care physician for further instructions regarding her diabetic medications. Return parameters were discussed in detail. She verbalizes understanding and agrees with this plan. - Lab Data Result diagrams: 03/28/20 11:08 03/28/20 11:08 Lab Results 03/28/20 03/28/20 03/28/20 Range/Units 11:08 11:08 11:29 WBC 6.8 (3.8-10.6) k/uL RBC 5.43 H (3.80-5.40) m/uL Hgb 15.3 (11.4-16.0) gm/dL Hct 48.1 H (34.0-46.0) % MCV 88.7 (80.0-100.0) fL MCH 28.2 (25.0-35.0) pg MCHC 31.9 (31.0-37.0) g/dL RDW 13.1 (11.5-15.5) % Plt Count 191 (150-450) k/uL Neutrophils % 58 % Lymphocytes % 30 % Monocytes % 6 % Eosinophils % 4 % Basophils % 1 % Neutrophils # 3.9 (1.3-7.7) k/uL Lymphocytes # 2.1 (1.0-4.8) k/uL Monocytes # 0.4 (0-1.0) k/uL Eosinophils # 0.2 (0-0.7) k/uL Basophils # 0.1 (0-0.2) k/uL Sodium 136 L (137-145) mmol/L Potassium 4.4 (3.5-5.1) mmol/L Chloride 105 (98-107) mmol/L Carbon Dioxide 21 L (22-30) mmol/L Anion Gap 10 mmol/L BUN 13 (7-17) mg/dL Creatinine 0.56 (0.52-1.04) mg/dL Est GFR (CKD-EPI)AfAm >90 (>60 ml/min/1.73 sqM) Est GFR (CKD-EPI)NonAf >90 (>60 ml/min/1.73 sqM) Glucose 358 H (74-99) mg/dL Calcium 9.1 (8.4-10.2) mg/dL Phosphorus 2.8 (2.5-4.5) mg/dL Total Bilirubin 0.5 (0.2-1.3) mg/dL AST 24 (14-36) U/L ALT 21 (4-34) U/L Alkaline Phosphatase 130 H (38-126) U/L Total Protein 7.9 (6.3-8.2) g/dL Albumin 4.4 (3.5-5.0) g/dL Urine Color Light Yellow Urine Appearance Clear (Clear) Urine pH 5.0 (5.0-8.0) Ur Specific [place] 1.037 H (1.001-1.035) Urine Protein Negative (Negative) Urine Glucose (UA) 4+ H (Negative) Urine Ketones 1+ H (Negative) Urine Blood Trace H (Negative) Urine Nitrite Negative (Negative) Urine Bilirubin Negative (Negative) Urine Urobilinogen <2.0 (<2.0) mg/dL Ur Leukocyte Esterase Moderate H (Negative) Urine RBC 6 H (0-5) /hpf Urine WBC 3 (0-5) /hpf Ur Squamous Epith Cells 1 (0-4) /hpf Urine Bacteria Rare H (None) /hpf Urine Mucus Rare H (None) /hpf Disposition Clinical Impression: Hyperglycemia, Vaginal candidiasis Disposition: HOME SELF-CARE Condition: Good Instructions (If sedation given, give patient instructions): Yeast Infection (ED), Diabetic Hyperglycemia (ED) Additional Instructions: Close to monitor your blood sugars. Increase fluids. Use nystatin cream as directed. Follow-up through primary care physician for a recheck and further instructions regarding your diabetic medication as soon as possible. Return to the emergency department immediately for any new, worsening, or concerning symptoms. Prescriptions: Fluconazole [Diflucan] 150 mg PO ONCE #2 tab Nystatin 100,000Unit/gm Cream [Mycostatin Cream] 1 applic TOPICAL TID #15 gm Is patient prescribed a controlled substance at d/c from ED?: No Referrals: Jerilyn Knott MD [Primary Care Provider] - 1-2 days Time of Disposition: 12:21
[2020-03-28 11:28] LABS: Basophils # (A) 0.1 k/uL (0-0.2); Basophils % (A) 1 %; Eosinophils # (A) 0.2 k/uL (0-0.7); Eosinophils % (A) 4 %; HCT 48.1 % (34.0-46.0); HGB 15.3 gm/dL (11.4-16.0); Lymphocytes # (A) 2.1 k/uL (1.0-4.8); Lymphocytes % (A) 30 %; MCH 28.2 pg (25.0-35.0); MCHC 31.9 g/dL (31.0-37.0); MCV 88.7 fL (80.0-100.0); Mean Platelet Volume 9.2; Monocytes # (A) 0.4 k/uL (0-1.0); Monocytes % (A) 6 %; Neutrophils # (A) 3.9 k/uL (1.3-7.7); Neutrophils % (A) 58 %; Platelet Count 191 k/uL (150-450); RBC 5.43 m/uL (3.80-5.40); RDW 13.1 % (11.5-15.5); WBC 6.8 k/uL (3.8-10.6)
[2020-03-28 11:46] LABS: Appearance,Urine Clear (Clear); Bacteria,Urine Rare /hpf; Bilirubin,Urine Negative (Negative); Blood,Urine Trace (Negative); Color,Urine Light Yellow; Glucose,Urine (UA) 4+ (Negative); Ketones,Urine 1+ (Negative); Leukocyte Esterase,Urine Moderate (Negative); Mucus,Urine Rare /hpf; Nitrite,Urine Negative (Negative); Protein,Urine Negative (Negative); RBC,Urine 6 /hpf (0-5); Specific Gravity,Urine 1.037 (1.001-1.035); Squamous Epithelial Cell,Urine 1 /hpf (0-4); Urobilinogen,Urine <2.0 mg/dL (<2.0); WBC,Urine 3 /hpf (0-5)
[2020-03-28 12:01] LABS: ALT 21 U/L (4-34); AST 24 U/L (14-36); African American GFR (CKD) >90 (>60 ml/min/1.73 sqM); Albumin 4.4 g/dL (3.5-5.0); Alkaline Phosphatase 130 U/L (38-126); Anion Gap 10 mmol/L; Blood Urea Nitrogen 13 mg/dL (7-17); Calcium 9.1 mg/dL (8.4-10.2); Carbon Dioxide 21 mmol/L (22-30); Chloride 105 mmol/L (98-107); Glucose 358 mg/dL (74-99); Non-African American GFR(CKD) >90 (>60 ml/min/1.73 sqM); Phosphorus 2.8 mg/dL (2.5-4.5); Potassium 4.4 mmol/L (3.5-5.1); Sodium 136 mmol/L (137-145); Total Bilirubin 0.5 mg/dL (0.2-1.3); Total Protein 7.9 g/dL (6.3-8.2)
[2020-03-28] MEDS ORDERED: INSULIN ASPART (NovoLOG) 100 UNIT/ML VIAL SQ STA (12:11)
[2020-03-28 13:30] VITALS: BP 120/72; PULSE 88; RESP 18; TEMP 98.1
== END 2020-03-28 12:35 | disposition home or self-care (01) ==
LOC: EC 10:38
DX: E11.65 Type 2 diabetes mellitus with hyperglycemia (principal); B37.3 Candidiasis of vulva and vagina; E83.51 Hypocalcemia; K21.9 Gastro-esophageal reflux disease without esophagitis; F17.200 Nicotine dependence, unspecified, uncomplicated; Z79.899 Other long term (current) drug therapy; Z79.4 Long term (current) use of insulin; Z88.0 Allergy status to penicillin; Z88.1 Allergy status to other antibiotic agents; Z88.5 Allergy status to narcotic agent; Z88.8 Allergy status to other drugs, medicaments and biological substances; Z86.73 Personal history of transient ischemic attack (TIA), and cerebral infarction without residual deficits; Z85.43 Personal history of malignant neoplasm of ovary; Z85.42 Personal history of malignant neoplasm of other parts of uterus; Z98.890 Other specified postprocedural states
CPT/HCPCS: 36415; 80053; 81001; 84100; 85025; 96360; 99284

== ENCOUNTER → 2020-06-04 | Outpatient (CLI) | payer MEDICARE, OTHER ==
[2020-06-04 11:34] LABS: African American GFR (CKD) >90 (>60 ml/min/1.73 sqM); Blood Urea Nitrogen 13 mg/dL (7-17); Non-African American GFR(CKD) >90 (>60 ml/min/1.73 sqM)
--- NOTE | 2020-06-04 13:25 | CT ---
EXAMINATION TYPE: CT abdomen pelvis w con DATE OF EXAM: 06/04/2020 HISTORY: Observe for mets, history of ovarian cancer. CT DLP: 2279.2mGycm Automated Exposure Control for Dose Reduction was Utilized. CONTRAST: CT scan of the abdomen and pelvis is performed with oral and with IV Contrast, patient injected with 100ml mL of Isovue 300. COMPARISON: CT November 06, 2019 and older CTs. PET/CT May 07, 2017. FINDINGS: LUNG BASES: No significant abnormality is appreciated. LIVER/GB: No significant abnormality is appreciated. PANCREAS: No significant abnormality is seen. SPLEEN: No significant abnormality is seen. ADRENALS: No significant abnormality is seen. KIDNEYS: Symmetric cortical medullary uptake and excretion with prominent right extrarenal pelvis red emonstrated. No calyceal dilatation. BOWEL: Oral contrast reaches level of distal left colon. No suspicious small or large bowel dilatatio n. Normal-appearing appendix seen from base of cecum. Mild 2 borderline moderate wall thickening in t he sigmoid colon of the pelvis is present on current study. UTERUS/ADNEXA: Uterus is surgically absent. Surgical clips right pelvis axial image 81 causing streak artifact redemonstrated. LYMPH NODES: No new greater than 1cm abdominal or pelvic lymph nodes are appreciated. Stable subcenti meter iliac chain lymph nodes in the pelvis bilaterally. OSSEOUS STRUCTURES: Mild narrowing in both hip joints redemonstrated. Some facet arthropathy lower chloé mbar spine. OTHER: Vertical scar overlying the midline of the lower abdomen and pelvis. IMPRESSION: No new suspicious mass or adenopathy to suggest neoplastic recurrence.
== END | disposition home or self-care (01) ==
LOC: RADCTMAIN 10:44
PROVIDERS: ATTEND Internal Medicine Hematology & Oncology
DX: Z03.89 Encounter for observation for other suspected diseases and conditions ruled out (principal); C56.9 Malignant neoplasm of unspecified ovary; Z88.1 Allergy status to other antibiotic agents; Z88.5 Allergy status to narcotic agent; Z95.828 Presence of other vascular implants and grafts
CPT/HCPCS: 82565; 84520; 74177; 36415; Q9967

== ENCOUNTER → 2020-11-20 | Outpatient (CLI) | payer MEDICARE, OTHER ==
--- NOTE | 2020-11-20 15:23 | XR ---
EXAMINATION TYPE: XR lumbosacral spine min 4V DATE OF EXAM: 11/20/2020 Comparison: None Clinical History: 35-year-old female M51.9 lumbosacral disc disease Findings: Hypertrophic facet arthropathy lower lumbar spine. Vertebral body heights are preserved and alignment is maintained. There appear to be small L1 ribs. No pars interarticularis defect seen. Impression: Hypertrophic facet arthropathy lower lumbar spine. Small L1 ribs incidentally noted. No vertebral com pression collapse or malalignment.
== END | disposition home or self-care (01) ==
LOC: RADXRMAIN 11:08
PROVIDERS: ATTEND Internal Medicine
DX: M47.816 Spondylosis without myelopathy or radiculopathy, lumbar region (principal)
CPT/HCPCS: 72110

== ENCOUNTER → 2020-12-16 | Outpatient (CLI) | payer MEDICARE, OTHER ==
--- NOTE | 2020-12-19 12:13 | CT ---
EXAMINATION TYPE: CT abdomen pelvis w con DATE OF EXAM: 12/16/2020 COMPARISON: 06/04/2020 CT, CT chest abdomen and pelvis to 01/21/2020 INDICATION: f/u ovarian ca DLP: 2314.1 mGycm, Automated exposure control for dose reduction was used. CONTRAST: 100 mL of Isovue 300. Study performed with Oral Contrast TECHNIQUE: Axial images were obtained from above the diaphragm to the pubic rami in the axial plane a t 5 mm thick sections. Reconstructed images are reviewed on the computer in the coronal plane. FINDINGS: Limited CT sections are obtained the lung bases. There is a triangular 0.8 cm density, series 4 imag e 5 which is nonspecific. Follow-up can be performed. Lung bases otherwise appear clear.. CT ABDOMEN: Liver: Normal Spleen: Normal Pancreas: Normal Adrenal glands: The adrenal glands are normal. Gallbladder: Normal Kidneys: No masses are evident. No hydronephrosis is present. No cysts are present. Delayed images were obtained through the kidneys, which remain unremarkable. Aorta: Normal Inferior vena cava: Normal. CT PELVIS: Loops of bowel within the abdomen and pelvis are normal. There are loops of bowel which are incom pletely distended or lack oral contrast limiting their evaluation. Appendix: Normal as visualized. Urinary bladder: Normal. Genitourinary structures: Uterus and ovaries are not identified. Surgical clip is in the right hemipe lvis. Osseous structures: No suspicious lytic or sclerotic lesions. IMPRESSIONS: 1. Triangular density right middle lobe, stable from 11/06/2019. 2. No suspicious abdomen or pelvic fluid or omental caking is evident.
== END ==
LOC: RADCTMAIN 16:15
PROVIDERS: ATTEND Internal Medicine Hematology & Oncology
DX: C56.9 Malignant neoplasm of unspecified ovary (principal); R91.8 Other nonspecific abnormal finding of lung field
CPT/HCPCS: 82565; 84520; 74177; 36415; Q9967

== ENCOUNTER 2021-05-11 06:58 | Emergency (ER) | payer MEDICARE, OTHER ==
[2021-05-11] MEDS ORDERED: SODIUM CHLORIDE 0.9% 500 ML 500 ML IV STA (07:03)
[2021-05-11] MEDS ORDERED: DIPH,PERTUS(ACELL)TETVAC-LF 0.5 ML VIAL IM ONE (07:03)
[2021-05-11 07:08] LABS: Glucose,Whole Blood 118 mg/dL (75-99)
--- NOTE | 2021-05-11 07:16 | ED ---
General Adult HPI - General Stated complaint: Fall, Altered Mental Status Time Seen by Provider: 05/11/21 07:05 Source: EMS, RN notes reviewed, old records reviewed Limitations: altered mental status - History of Present Illness Initial comments: 29 sexual female with history diabetes presenting status post fall with head injury. Patient transported by EMS, initially found at the bottom of a flight of stairs unresponsive. She had facial injuries. EMS did obtain a blood sugar and noted this to be 30. She was given dextrose by paramedics. She became somewhat more responsive during transport although she remains somewhat confused. She was hypotensive and diaphoretic. She is complaining of some pain in her chin as well as left upper chest. No abdominal pain. No lower extremity pain or injuries. No reported anticoagulation. - Related Data Home Medications Medication Instructions Recorded Confirmed Insulin Glargine,Hum.rec.anlog 32 unit SQ HS 11/16/18 05/11/21 [Basaglar Kwikpen U-100] oxyCODONE-APAP 10-325MG [Percocet 1 tab PO Q6H PRN 11/16/18 05/11/21 10-325 mg] Atorvastatin [Lipitor] 40 mg PO DAILY 08/08/19 05/11/21 Pantoprazole Sodium [Protonix] 40 mg PO DAILY 08/08/19 05/11/21 Prochlorperazine Maleate 10 mg PO Q8H PRN 08/08/19 05/11/21 Topiramate [Topamax] 50 mg PO BID 08/08/19 05/11/21 lisinopriL [Zestril] 5 mg PO DAILY 08/08/19 05/11/21 INSULIN ASPART (NovoLOG) [NovoLOG See Protocol SQ AC-TID 09/23/19 05/11/21 (formulary)] Metoprolol Succinate [Toprol XL] 25 mg PO DAILY 03/28/20 05/11/21 metFORMIN HCL [metFORMIN HCL ER] 750 mg PO HS 03/28/20 05/11/21 Dicyclomine [Bentyl] 20 mg PO QID PRN 05/11/21 05/11/21 EPINEPHrine (Auto Inject) [Epipen] 0.3 mg IM ONCE PRN 05/11/21 05/11/21 Famotidine [Pepcid] 20 mg PO HS PRN 05/11/21 05/11/21 methocarbamoL [Robaxin] 500 mg PO BID PRN 05/11/21 05/11/21 tiZANidine [Zanaflex] 2 mg PO HS PRN 05/11/21 05/11/21 Allergies Allergy/AdvReac Type Severity Reaction Status Date / Time ampicillin Allergy Unknown Verified 03/28/20 12:01 Childhood ciprofloxacin [From Cipro] Allergy Anaphylaxis Verified 03/28/20 12:01 hydromorphone [From Dilaudid] Allergy Rash/Hives Verified 03/28/20 12:01 promethazine [From Phenergan] Allergy Rash/Hives Verified 03/28/20 12:01 Review of Systems ROS Statement: Those systems with pertinent positive or pertinent negative responses have been documented in the HPI. ROS Other: All systems not noted in ROS Statement are negative. Past Medical History Past Medical History: Asthma, Cancer, CVA/TIA, Diabetes Mellitus, GERD/Reflux Additional Past Medical History / Comment(s): stage 3 uterine cancer 2015, frequent nausea,vomiting & diarrhea for several months, TIA 2015, 2018-no residual effects History of Any Multi-Drug Resistant Organisms: None Reported Past Surgical History: Adenoidectomy, Hysterectomy, Tonsillectomy Additional Past Surgical History / Comment(s): colonoscopy Past Anesthesia/Blood Transfusion Reactions: No Reported Reaction Past Psychological History: Anxiety Past Alcohol Use History: None Reported Past Drug Use History: None Reported General Exam General appearance: alert, in distress Head exam: Present: normocephalic, other (2 cm chin laceration linear) Eye exam: Present: PERRL Neck exam: Present: other (No step-off, no midline tenderness, c-collar applied) Cardiovascular Exam: Present: regular rate, normal rhythm GI/Abdominal exam: Present: soft. Absent: distended, tenderness, guarding Extremities exam: Present: normal inspection, normal capillary refill. Absent: pedal edema Back exam: Present: normal inspection, full ROM. Absent: tenderness Neurological exam: Present: alert. Absent: oriented X3 (Oriented 2, somewhat confused, GCS 15) Skin exam: Present: diaphoretic Course Vital Signs 05/11/21 05/11/21 05/11/21 07:18 08:12 11:49 Temperature 97.7 F Pulse Rate 89 61 76 Respiratory 16 16 7 L Rate Blood Pressure 125/87 127/68 112/72 O2 Sat by Pulse 99 97 99 Oximetry - Reevaluation(s) Reevaluation #1: 05/11/21 07:16 Patient was transported by paramedics, upon arrival a priority 2 trauma was activated and I did discuss case with Dr. Potter. EKG Findings - EKG Comments: EKG Findings:: EKG: Sinus rhythm, low voltage, rate of 88, TX interval 168, QRS duration [address] segment elevation. Procedures - Laceration Laceration #1 Consent Obtained: verbal consent Indication: laceration Site: face Description: linear, clean Depth: simple, single layer Anesthetic Used: lidocaine 1% Anesthesia Technique: local infiltration Amount (mls): 4 Pre-repair: wound explored, irrigated extensively, deep structures intact Type of Sutures: nylon Size of Sutures: 6-0 Number of Sutures: 3 Technique: simple, interrupted Patient Tolerated Procedure: well Medical Decision Making - Medical Decision Making 35-year-old female presented with altered mental status, fall, facial trauma. She had a laceration to her chin. She did not remember the fall. EMS had reported a low blood glucose is given dextrose prior to arrival. She is alert at the time of arrival. Head CT is performed which is negative for intracranial hemorrhage or mass effect. I did perform a CT of the chest and pelvis given that this fall was unwitnessed and possibly down an entire flight of stairs. This is negative for traumatic injury. Patient has a normal CBC with the exception of a leukocytosis at 16.9 which is likely reactive. Stable hemoglobin. She has a stable blood sugar while in the emergency department and is able to eat without recurrent hypoglycemia. Urinalysis is negative. The patient is eager for discharge. There was delay in discharging this patient due to delay in obtaining the urine. Patient is feeling better and eager for discharge. - Lab Data Result diagrams: 05/11/21 08:54 05/11/21 10:52 Lab Results 05/11/21 05/11/21 05/11/21 Range/Units 07:05 08:48 08:50 WBC (3.8-10.6) k/uL RBC (3.80-5.40) m/uL Hgb (11.4-16.0) gm/dL Hct (34.0-46.0) % MCV (80.0-100.0) fL MCH (25.0-35.0) pg MCHC (31.0-37.0) g/dL RDW (11.5-15.5) % Plt Count (150-450) k/uL MPV Neutrophils % % Lymphocytes % % Monocytes % % Eosinophils % % Basophils % % Neutrophils # (1.3-7.7) k/uL Lymphocytes # (1.0-4.8) k/uL Monocytes # (0-1.0) k/uL Eosinophils # (0-0.7) k/uL Basophils # (0-0.2) k/uL PT (9.0-12.0) sec INR (<1.2) Sodium (137-145) mmol/L Potassium (3.5-5.1) mmol/L Chloride (98-107) mmol/L Carbon Dioxide (22-30) mmol/L Anion Gap mmol/L BUN (7-17) mg/dL Creatinine (0.52-1.04) mg/dL Est GFR (CKD-EPI)AfAm (>60 ml/min/1.73 sqM) Est GFR (CKD-EPI)NonAf (>60 ml/min/1.73 sqM) Glucose (74-99) mg/dL POC Glucose (mg/dL) 118 H (75-99) mg/dL POC Glu Gas Leak Tester ID Misty Messina Lactic Ac Sepsis Rflx Plasma Lactic Acid Hong (0.7-2.0) mmol/L Calcium (8.4-10.2) mg/dL Magnesium (1.6-2.3) mg/dL Total Bilirubin (0.2-1.3) mg/dL AST (14-36) U/L ALT (4-34) U/L Alkaline Phosphatase (38-126) U/L Troponin I (0.000-0.034) ng/mL Total Protein (6.3-8.2) g/dL Albumin (3.5-5.0) g/dL Urine Color Urine Appearance (Clear) Urine pH (5.0-8.0) Ur Specific Donnelly (1.001-1.035) Urine Protein (Negative) Urine Glucose (UA) (Negative) Urine Ketones (Negative) Urine Blood (Negative) Urine Nitrite (Negative) Urine Bilirubin (Negative) Urine Urobilinogen (<2.0) mg/dL Ur Leukocyte Esterase (Negative) Serum Alcohol mg/dL Blood Type B Positive Blood Type Confirm B Positive Blood Type Recheck No Previous Record Bld Type Recheck Status CABO Indicated Antibody Screen NEGATIVE Spec Expiration Date 05/14/2021 - 235305/11/21 05/11/21 05/11/21 Range/Units 08:54 08:54 08:54 WBC 16.9 H (3.8-10.6) k/uL RBC 4.79 (3.80-5.40) m/uL Hgb 14.4 (11.4-16.0) gm/dL Hct 43.3 (34.0-46.0) % MCV 90.4 (80.0-100.0) fL MCH 30.0 (25.0-35.0) pg MCHC 33.2 (31.0-37.0) g/dL RDW 13.6 (11.5-15.5) % Plt Count 231 (150-450) k/uL MPV 8.5 Neutrophils % 84 % Lymphocytes % 10 % Monocytes % 4 % Eosinophils % 0 % Basophils % 0 % Neutrophils # 14.3 H (1.3-7.7) k/uL Lymphocytes # 1.8 (1.0-4.8) k/uL Monocytes # 0.7 (0-1.0) k/uL Eosinophils # 0.0 (0-0.7) k/uL Basophils # 0.0 (0-0.2) k/uL PT 10.6 (9.0-12.0) sec INR 1.0 (<1.2) Sodium (137-145) mmol/L Potassium (3.5-5.1) mmol/L Chloride (98-107) mmol/L Carbon Dioxide (22-30) mmol/L Anion Gap mmol/L BUN (7-17) mg/dL Creatinine (0.52-1.04) mg/dL Est GFR (CKD-EPI)AfAm (>60 ml/min/1.73 sqM) Est GFR (CKD-EPI)NonAf (>60 ml/min/1.73 sqM) Glucose (74-99) mg/dL POC Glucose (mg/dL) (75-99) mg/dL POC Glu Gas Leak Tester ID Lactic Ac Sepsis Rflx Plasma Lactic Acid Hong (0.7-2.0) mmol/L Calcium (8.4-10.2) mg/dL Magnesium 1.6 (1.6-2.3) mg/dL Total Bilirubin (0.2-1.3) mg/dL AST (14-36) U/L ALT (4-34) U/L Alkaline Phosphatase (38-126) U/L Troponin I (0.000-0.034) ng/mL Total Protein (6.3-8.2) g/dL Albumin (3.5-5.0) g/dL Urine Color Urine Appearance (Clear) Urine pH (5.0-8.0) Ur Specific Donnelly (1.001-1.035) Urine Protein (Negative) Urine Glucose (UA) (Negative) Urine Ketones (Negative) Urine Blood (Negative) Urine Nitrite (Negative) Urine Bilirubin (Negative) Urine Urobilinogen (<2.0) mg/dL Ur Leukocyte Esterase (Negative) Serum Alcohol <10 mg/dL Blood Type Blood Type Confirm Blood Type Recheck Bld Type Recheck Status Antibody Screen Spec Expiration Date 05/11/21 05/11/21 05/11/21 Range/Units 08:54 08:54 09:22 WBC (3.8-10.6) k/uL RBC (3.80-5.40) m/uL Hgb (11.4-16.0) gm/dL Hct (34.0-46.0) % MCV (80.0-100.0) fL MCH (25.0-35.0) pg MCHC (31.0-37.0) g/dL RDW (11.5-15.5) % Plt Count (150-450) k/uL MPV Neutrophils % % Lymphocytes % % Monocytes % % Eosinophils % % Basophils % % Neutrophils # (1.3-7.7) k/uL Lymphocytes # (1.0-4.8) k/uL Monocytes # (0-1.0) k/uL Eosinophils # (0-0.7) k/uL Basophils # (0-0.2) k/uL PT (9.0-12.0) sec INR (<1.2) Sodium (137-145) mmol/L Potassium (3.5-5.1) mmol/L Chloride (98-107) mmol/L Carbon Dioxide (22-30) mmol/L Anion Gap mmol/L BUN (7-17) mg/dL Creatinine (0.52-1.04) mg/dL Est GFR (CKD-EPI)AfAm (>60 ml/min/1.73 sqM) Est GFR (CKD-EPI)NonAf (>60 ml/min/1.73 sqM) Glucose (74-99) mg/dL POC Glucose (mg/dL) (75-99) mg/dL POC Glu Gas Leak Tester ID Lactic Ac Sepsis Rflx Y Plasma Lactic Acid Hong 2.1 H* (0.7-2.0) mmol/L Calcium (8.4-10.2) mg/dL Magnesium (1.6-2.3) mg/dL Total Bilirubin (0.2-1.3) mg/dL AST (14-36) U/L ALT (4-34) U/L Alkaline Phosphatase (38-126) U/L Troponin I <0.012 (0.000-0.034) ng/mL Total Protein (6.3-8.2) g/dL Albumin (3.5-5.0) g/dL Urine Color Urine Appearance (Clear) Urine pH (5.0-8.0) Ur Specific Donnelly (1.001-1.035) Urine Protein (Negative) Urine Glucose (UA) (Negative) Urine Ketones (Negative) Urine Blood (Negative) Urine Nitrite (Negative) Urine Bilirubin (Negative) Urine Urobilinogen (<2.0) mg/dL Ur Leukocyte Esterase (Negative) Serum Alcohol mg/dL Blood Type Blood Type Confirm Blood Type Recheck Bld Type Recheck Status Antibody Screen Spec Expiration Date 05/11/21 05/11/21 05/11/21 Range/Units 10:52 11:30 12:15 WBC (3.8-10.6) k/uL RBC (3.80-5.40) m/uL Hgb (11.4-16.0) gm/dL Hct (34.0-46.0) % MCV (80.0-100.0) fL MCH (25.0-35.0) pg MCHC (31.0-37.0) g/dL RDW (11.5-15.5) % Plt Count (150-450) k/uL MPV Neutrophils % % Lymphocytes % % Monocytes % % Eosinophils % % Basophils % % Neutrophils # (1.3-7.7) k/uL Lymphocytes # (1.0-4.8) k/uL Monocytes # (0-1.0) k/uL Eosinophils # (0-0.7) k/uL Basophils # (0-0.2) k/uL PT (9.0-12.0) sec INR (<1.2) Sodium 138 (137-145) mmol/L Potassium 4.8 (3.5-5.1) mmol/L Chloride 108 H (98-107) mmol/L Carbon Dioxide 24 (22-30) mmol/L Anion Gap 6 mmol/L BUN 22 H (7-17) mg/dL Creatinine 0.61 (0.52-1.04) mg/dL Est GFR (CKD-EPI)AfAm >90 (>60 ml/min/1.73 sqM) Est GFR (CKD-EPI)NonAf >90 (>60 ml/min/1.73 sqM) Glucose 117 H (74-99) mg/dL POC Glucose (mg/dL) (75-99) mg/dL POC Glu Gas Leak Tester ID Lactic Ac Sepsis Rflx Plasma Lactic Acid Hong 1.6 (0.7-2.0) mmol/L Calcium 8.8 (8.4-10.2) mg/dL Magnesium (1.6-2.3) mg/dL Total Bilirubin 0.4 (0.2-1.3) mg/dL AST 48 H (14-36) U/L ALT 35 H (4-34) U/L Alkaline Phosphatase 82 (38-126) U/L Troponin I (0.000-0.034) ng/mL Total Protein 6.2 L (6.3-8.2) g/dL Albumin 3.6 (3.5-5.0) g/dL Urine Color Yellow Urine Appearance Clear (Clear) Urine pH 6.0 (5.0-8.0) Ur Specific Donnelly >1.050 H (1.001-1.035) Urine Protein Trace H (Negative) Urine Glucose (UA) Negative (Negative) Urine Ketones Negative (Negative) Urine Blood Negative (Negative) Urine Nitrite Negative (Negative) Urine Bilirubin Negative (Negative) Urine Urobilinogen <2.0 (<2.0) mg/dL Ur Leukocyte Esterase Negative (Negative) Serum Alcohol mg/dL Blood Type Blood Type Confirm Blood Type Recheck Bld Type Recheck Status Antibody Screen Spec Expiration Date Disposition Clinical Impression: Fall, Concussion, Facial laceration, Hypoglycemia Disposition: HOME SELF-CARE Condition: Fair Instructions (If sedation given, give patient instructions): Hypoglycemia in a Person with Diabetes (ED), Laceration (ED), Care For Your Stitches (ED), Concussion (ED) Additional Instructions: Please return for suture removal in 7 days. Is patient prescribed a controlled substance at d/c from ED?: No Referrals: Jerilyn Knott MD [Primary Care Provider] - 1-2 days Time of Disposition: 13:15
[2021-05-11 07:23] VITALS: TEMP 97.7
--- NOTE | 2021-05-11 07:27 | XR ---
EXAMINATION TYPE: XR pelvis AP view DATE OF EXAM: 05/11/2021 COMPARISON: None HISTORY: Trauma TECHNIQUE: AP pelvis FINDINGS: Femoral heads articulate with the acetabulum. Joint spaces and mild narrowing. Surgical cli ps are within the pelvis. Normal bowel gas is present. Sacroiliac joints appear normal. IMPRESSION: 1. No acute posttraumatic changes AP pelvis
--- NOTE | 2021-05-11 07:34 | XR ---
EXAMINATION TYPE: XR chest 1V portable DATE OF EXAM: 05/11/2021 COMPARISON: 09/23/2019 INDICATION: Trauma TECHNIQUE: Single frontal view of the chest is obtained. Lateral portion of the right ribs is exclude d from the [id number]. FINDINGS: The heart size is normal. The pulmonary vasculature is normal. The lungs are clear. No pneumothorax is evident. Port is present on the right with tip in the distal superior vena cava re gion. IMPRESSION: 1. No acute pulmonary process. 2. No acute posttraumatic change.
[2021-05-11] MEDS ORDERED: LIDOCAINE 1% INJ 10MG/ML (20 ML MDV) SQ ONE (07:52)
--- NOTE | 2021-05-11 08:31 | CT ---
EXAMINATION TYPE: CT brain chrisine wo con DATE OF EXAM: 05/11/2021 COMPARISON: Brain 11/16/2018 HISTORY: 35-year-old female seen after trauma CT DLP: 1880.6 mGycm Automated exposure control for dose reduction was used. Technique: Examination of the head was done in axial plane without intravenous contrast. Coronal and sagittal reconstructions performed. CT of the cervical spine was obtained in axial plane without intravenous injection of contrast mater ial. Coronal and sagittal reformatted images were obtained from the axial views for evaluation of f ractures, spinal alignment and canal. FINDINGS: Head: There is no evidence of acute intracranial hemorrhage, acute ischemic changes, mass, mass-effect, or extra-axial fluid collection. There is no effacement of cerebral sulci or basal subarachnoid cister ns. There is no hydrocephalus. There is no midline shift. [place]-white matter distinction is preserv ed. Rightward nasal septal deviation. Paranasal sinuses and mastoid air cells well pneumatized. Orbits an d globes are intact. No calvarial fracture. Cervical spine: No craniocervical junction of the body, predental space widening, or prevertebral soft tissue swellin g. Straightening of the normal cervical lordosis with but with preserved alignment. Prominent artifact from the patient's shoulders and large body habitus limits assessment of the spina l canal from C4-C5 and below. No acute fracture of the cervical spine. Sagittal and coronal reformatted images confirm above findings. COMBINED IMPRESSION: 1. No acute intracranial abnormality seen. 2. No acute fracture or malalignment of the cervical spine allowing for artifacts from the patient's body habitus.
--- NOTE | 2021-05-11 08:41 | CT ---
EXAMINATION TYPE: CT ChestAbdPelvis w con DATE OF EXAM: 05/11/2021 COMPARISON: 12/16/2020 and 11/06/2019. HISTORY: 35-year-old female pain after trauma. Prior reports indicate history of ovarian cancer. TECHNIQUE: Contiguous axial scanning of the chest, abdomen, and pelvis performed with IV Contrast, pa tient injected with 100 mL of Isovue 300. Delayed images through the kidneys and bladder were obtaine d. Coronal/sagittal reconstructions performed. CT DLP: 3560 mGycm Automated exposure control for dose reduction was used. FINDINGS: CHEST: Heart upper limits of normal in size without pericardial effusion. Aorta normal caliber with conventional branching anatomy. Right anterior chest wall injection port with catheter tip at the lower SVC. No thoracic lymphadenopathy by CT size criteria. A 7 mm anterior right midlung pulmonary nodule is unchanged back to at least 11/06/2019. Mild dependent atelectasis. No consolidation, pneumothorax, or pleural effusion. ABDOMEN: No focal liver lesion or biliary ductal dilatation. Portal venous system is patent. Gallbladder, adrenal glands, kidneys, spleen, and pancreas within normal limits. No dilated small bowel, free fluid, or free air. No mesenteric or retroperitoneal lymphadenopathy. Normal appendix. Mild to moderate stool burden. No pericolonic inflammatory change. PELVIS: Uterus surgically absent. Suggestion of trace fluid in the pelvis. Some surgical clips noted in the p ji. Uterus and ovaries are surgically absent. No pelvic lymphadenopathy. BONES: Mild degenerative change at the hips. Facet arthropathy lower lumbar spine. No acute fracture is iden tified. IMPRESSION: 1. THERE IS TRACE PELVIC FREE FLUID. THE PATIENT IS STATUS POST HYSTERECTOMY AND BILATERAL SALPING O-OOPHORECTOMIES, FURTHER CLINICAL CORRELATION RECOMMENDED TO THE NEED FOR SHORT CLINICAL SURVEILL ANCE IN THE SETTING OF TRAUMA. 2. OTHERWISE, NO ACUTE TRAUMATIC SEQUELA IDENTIFIED IN THE CHEST, ABDOMEN, OR PELVIS.
[2021-05-11 09:14] LABS: Prothrombin Time 10.6 sec (9.0-12.0)
[2021-05-11 09:15] LABS: Alcohol <10 mg/dL; Magnesium 1.6 mg/dL (1.6-2.3)
[2021-05-11 09:22] LABS: Basophils % (A) 0 %; Eosinophils % (A) 0 %; HCT 43.3 % (34.0-46.0); HGB 14.4 gm/dL (11.4-16.0); Lymphocytes # (A) 1.8 k/uL (1.0-4.8); Lymphocytes % (A) 10 %; MCHC 33.2 g/dL (31.0-37.0); MCV 90.4 fL (80.0-100.0); Mean Platelet Volume 8.5; Monocytes # (A) 0.7 k/uL (0-1.0); Monocytes % (A) 4 %; Neutrophils # (A) 14.3 k/uL (1.3-7.7); Neutrophils % (A) 84 %; Platelet Count 231 k/uL (150-450); RBC 4.79 m/uL (3.80-5.40); RDW 13.6 % (11.5-15.5); WBC 16.9 k/uL (3.8-10.6)
[2021-05-11] MEDS ORDERED: KETOROLAC 15 MG/ML 1 ML VIAL IVP STA ×2 (10:23→13:38)
[2021-05-11] MEDS ORDERED: SODIUM CHLORIDE 0.9% 1,000 ML IV ONE (10:28)
[2021-05-11] MEDS ORDERED: ACETAMINOPHEN TAB 500 MG TAB PO STA (10:28)
[2021-05-11 11:28] LABS: ALT 35 U/L (4-34); African American GFR (CKD) >90 (>60 ml/min/1.73 sqM); Albumin 3.6 g/dL (3.5-5.0); Anion Gap 6 mmol/L; Blood Urea Nitrogen 22 mg/dL (7-17); Calcium 8.8 mg/dL (8.4-10.2); Carbon Dioxide 24 mmol/L (22-30); Chloride 108 mmol/L (98-107); Glucose 117 mg/dL (74-99); Non-African American GFR(CKD) >90 (>60 ml/min/1.73 sqM); Sodium 138 mmol/L (137-145); Total Bilirubin 0.4 mg/dL (0.2-1.3); Total Protein 6.2 g/dL (6.3-8.2)
[2021-05-11 11:32] LABS: AST 48 U/L (14-36); Alkaline Phosphatase 82 U/L (38-126); Potassium 4.8 mmol/L (3.5-5.1)
[2021-05-11 12:43] LABS: Appearance,Urine Clear (Clear); Bilirubin,Urine Negative (Negative); Blood,Urine Negative (Negative); Color,Urine Yellow; Glucose,Urine (UA) Negative (Negative); Ketones,Urine Negative (Negative); Leukocyte Esterase,Urine Negative (Negative); Nitrite,Urine Negative (Negative); Protein,Urine Trace (Negative); Urobilinogen,Urine <2.0 mg/dL (<2.0)
[2021-05-11 12:44] LABS: Specific Gravity,Urine >1.050 (1.001-1.035)
[2021-05-11 13:30] VITALS: RESP 16
[2021-05-11 13:43] VITALS: BP 108/70; PULSE 73
== END 2021-05-11 13:40 | disposition home or self-care (01) ==
LOC: EC 06:58
DX: S06.0X9A Concussion with loss of consciousness of unspecified duration, initial encounter (principal); S01.81XA Laceration without foreign body of other part of head, initial encounter; E11.649 Type 2 diabetes mellitus with hypoglycemia without coma; K21.9 Gastro-esophageal reflux disease without esophagitis; J45.909 Unspecified asthma, uncomplicated; F41.9 Anxiety disorder, unspecified; Z79.4 Long term (current) use of insulin; Z79.899 Other long term (current) drug therapy; Z88.0 Allergy status to penicillin; Z88.1 Allergy status to other antibiotic agents; Z88.8 Allergy status to other drugs, medicaments and biological substances; W10.9XXA Fall (on) (from) unspecified stairs and steps, initial encounter
CPT/HCPCS: 12011 ×2; 99285 ×2; 96374 ×2; 96376 ×2; 96361 ×4; 90471 ×2; 36415; 93005; 86900; 86901; 80053; 83605; 83735; 84484; 85025; 85610; 86850; 81003; 81025; 72170; 71045; 72125; 70450; 71260; 74177; 90715; G0480; J2001; J1885; Q9967; 80320

== ENCOUNTER 2021-05-30 10:46 | Emergency (ER) | payer MEDICARE, OTHER ==
[2021-05-30 10:50] VITALS: BP 119/64; PULSE 82; RESP 20; TEMP 98.1
--- NOTE | 2021-05-30 11:08 | ED ---
Upper Extremity HPI - General Chief Complaint: Extremity Injury, Upper Stated Complaint: Fall/Lt Hand Injury Time Seen by Provider: 05/30/21 10:53 Source: patient, RN notes reviewed Mode of arrival: ambulatory Limitations: no limitations - History of Present Illness Initial Comments: This a 35-year-old female presents emergency primarily with chief complaint left hand wrist pain. Patient states she's had pain for 3 weeks after a fall. Patient was seen in emergency department after hypoglycemic event fold on stairs. Patient states her hand is not improved. Patient states she still having him on pain. Patient denies any other complaints she states she's feeling better from that standpoint. She is [id number]. - Related Data Home Medications Medication Instructions Recorded Confirmed Insulin Glargine,Hum.rec.anlog 32 unit SQ HS 11/16/18 05/11/21 [Basaglar Kwikpen U-100] oxyCODONE-APAP 10-325MG [Percocet 1 tab PO Q6H PRN 11/16/18 05/11/21 10-325 mg] Atorvastatin [Lipitor] 40 mg PO DAILY 08/08/19 05/11/21 Pantoprazole Sodium [Protonix] 40 mg PO DAILY 08/08/19 05/11/21 Prochlorperazine Maleate 10 mg PO Q8H PRN 08/08/19 05/11/21 Topiramate [Topamax] 50 mg PO BID 08/08/19 05/11/21 lisinopriL [Zestril] 5 mg PO DAILY 08/08/19 05/11/21 INSULIN ASPART (NovoLOG) [NovoLOG See Protocol SQ AC-TID 09/23/19 05/11/21 (formulary)] Metoprolol Succinate [Toprol XL] 25 mg PO DAILY 03/28/20 05/11/21 metFORMIN HCL [metFORMIN HCL ER] 750 mg PO HS 03/28/20 05/11/21 Dicyclomine [Bentyl] 20 mg PO QID PRN 05/11/21 05/11/21 EPINEPHrine (Auto Inject) [Epipen] 0.3 mg IM ONCE PRN 05/11/21 05/11/21 Famotidine [Pepcid] 20 mg PO HS PRN 05/11/21 05/11/21 methocarbamoL [Robaxin] 500 mg PO BID PRN 05/11/21 05/11/21 tiZANidine [Zanaflex] 2 mg PO HS PRN 05/11/21 05/11/21 Allergies Allergy/AdvReac Type Severity Reaction Status Date / Time ampicillin Allergy Unknown Verified 05/30/21 10:50 Childhood ciprofloxacin [From Cipro] Allergy Anaphylaxis Verified 05/30/21 10:50 hydromorphone [From Dilaudid] Allergy Rash/Hives Verified 05/30/21 10:50 promethazine [From Phenergan] Allergy Rash/Hives Verified 05/30/21 10:50 Review of Systems ROS Statement: Those systems with pertinent positive or pertinent negative responses have been documented in the HPI. ROS Other: All systems not noted in ROS Statement are negative. Past Medical History Past Medical History: Asthma, Cancer, CVA/TIA, Diabetes Mellitus, GERD/Reflux Additional Past Medical History / Comment(s): stage 3 uterine cancer 2015, frequent nausea,vomiting & diarrhea for several months, TIA 2015, 2018-no residual effects History of Any Multi-Drug Resistant Organisms: None Reported Past Surgical History: Adenoidectomy, Hysterectomy, Tonsillectomy Additional Past Surgical History / Comment(s): colonoscopy Past Anesthesia/Blood Transfusion Reactions: No Reported Reaction Past Psychological History: Anxiety Smoking Status: Current every day smoker Past Alcohol Use History: None Reported Past Drug Use History: None Reported General Exam Limitations: no limitations General appearance: alert, in no apparent distress Head exam: Present: atraumatic, normocephalic, normal inspection Neck exam: Present: normal inspection. Absent: tenderness, meningismus, lymphadenopathy Respiratory exam: Present: normal lung sounds bilaterally. Absent: respiratory distress, wheezes, rales, rhonchi, stridor Cardiovascular Exam: Present: regular rate, normal rhythm, normal heart sounds. Absent: systolic murmur, diastolic murmur, rubs, gallop, clicks Extremities exam: Present: other (Left hand there is tenderness over the proximal hand and wrist region pain with range of motion first and second digit no ecchymosis no swelling) Course Vital Signs 05/30/21 10:48 Temperature 98.1 F Pulse Rate 82 Respiratory 20 Rate Blood Pressure 119/64 O2 Sat by Pulse 99 Oximetry Procedures - Orthopedic Splinting/Casting Injury #1 Side: left Upper Extremity Injury Location: wrist Upper Extremity Immobilizer: thumb spica, synthetic pre-padded splint Medical Decision Making - Medical Decision Making 35-year-old presented for wrist pain is been persistent for 3 weeks. Patient does have some scaphoid tenderness with splint and follow-up with orthopedics return parameters were discussed. Disposition Clinical Impression: Wrist pain, Fall Disposition: HOME SELF-CARE Condition: Stable Instructions (If sedation given, give patient instructions): Wrist Injury (ED) Additional Instructions: Please return to the Emergency Department if symptoms worsen or any other concerns. Is patient prescribed a controlled substance at d/c from ED?: No Referrals: Jerilyn Knott MD [Primary Care Provider] - 1-2 days Chris Pineda DO [Doctor of Osteopathic Medicine] - 1-2 days Time of Disposition: 12:20
--- NOTE | 2021-05-30 12:11 | XR ---
Left wrist HISTORY: Pain For views of the left wrist There is negative ulnar variance. Bone mineralization, joint spaces and alignment are maintained. No fracture or dislocation. IMPRESSION: Negative ulnar variance, consider wrist MRI as indicated
[2021-05-30] MEDS ORDERED: ACET/COD 300 MG/30 MG STARTER PACK 6 TAB BTL PO STA (12:55)
== END 2021-05-30 13:04 | disposition home or self-care (01) ==
LOC: EC 10:46
DX: M25.532 Pain in left wrist (principal); W19.XXXA Unspecified fall, initial encounter; E11.9 Type 2 diabetes mellitus without complications; K21.9 Gastro-esophageal reflux disease without esophagitis; J45.909 Unspecified asthma, uncomplicated; F17.200 Nicotine dependence, unspecified, uncomplicated; Z79.4 Long term (current) use of insulin; Z79.899 Other long term (current) drug therapy; Z88.0 Allergy status to penicillin; Z88.1 Allergy status to other antibiotic agents; F41.9 Anxiety disorder, unspecified
CPT/HCPCS: 29125; 99284

== ENCOUNTER → 2021-06-23 | Outpatient (CLI) | payer MEDICARE, OTHER ==
[2021-06-23 11:57] LABS: African American GFR (CKD) >90 (>60 ml/min/1.73 sqM); Blood Urea Nitrogen 14 mg/dL (7-17); Non-African American GFR(CKD) >90 (>60 ml/min/1.73 sqM)
--- NOTE | 2021-06-23 13:33 | CT ---
EXAMINATION TYPE: CT ChestAbdPelvis w con DATE OF EXAM: 06/23/2021 COMPARISON: Most recent CT May 11, 2021 and older studies. HISTORY: follow up ovarian cancer per order. Uterine cancer per patient. CT DLP: 2565 mGycm. Automated Exposure Control for Dose Reduction was Utilized. CONTRAST: CT scan of the thorax, abdomen and pelvis is performed with oral and with IV Contrast, patient inject ed with 100 mL of Isovue 300. FINDINGS: LUNGS: Stable 7 mm anterior right midlung groundglass nodule axial image 25 through November 06, 2019. No suspicious new greater than 5 mm nodules or masses. No pleural effusion or pneumothorax seen bila terally. MEDIASTINUM: There are no greater than 1 cm hilar or mediastinal lymph nodes. No cardiomegaly or pe ricardial effusion is seen. OTHER: Stable right internal jugular Mediport catheter . LIVER/GB: No significant abnormality is appreciated. PANCREAS: No significant abnormality is seen. SPLEEN: No significant abnormality is seen. ADRENALS: No significant abnormality is seen. KIDNEYS: No significant abnormality is seen. BOWEL: Oral contrast reaches level of rectum. No suspicious small or large bowel dilatation. Mild wal l thickening in the sigmoid colon in the pelvis near site of hysterectomy remains present, nonspecifi c finding. No free fluid at this level on current study. GENITAL ORGANS: Uterus is surgically absent. Stable surgical clip right pelvis axial image 109. LYMPH NODES: No new greater than 1cm abdominal or pelvic lymph nodes are appreciated. Surgical clips along left iliac vessels redemonstrated OSSEOUS STRUCTURES: Mild to moderate narrowing and mild spurring in both hip joints. Spine somewhat s traightened on sagittal images. OTHER: Vertical scar overlying the midline of the lower abdomen and pelvis presumed from hysterectomy redemonstrated. IMPRESSION: No new suspicious mass or adenopathy to suggest active neoplastic recurrence.. Interval r esolution of trace pelvic ascites.
== END | disposition home or self-care (01) ==
LOC: RADCTMAIN 10:56
PROVIDERS: ATTEND Internal Medicine Hematology & Oncology
DX: C65.9 Malignant neoplasm of unspecified renal pelvis (principal); Z85.41 Personal history of malignant neoplasm of cervix uteri; Z90.710 Acquired absence of both cervix and uterus
CPT/HCPCS: 82565; 84520; 71260; 74177; 36415; Q9967

== ENCOUNTER → 2021-12-23 | Outpatient (CLI) | payer MEDICARE, OTHER ==
[2021-12-23 12:21] LABS: African American GFR (CKD) >90 (>60 ml/min/1.73 sqM); Blood Urea Nitrogen 23 mg/dL (7-17); Non-African American GFR(CKD) >90 (>60 ml/min/1.73 sqM)
--- NOTE | 2021-12-23 14:49 | CT ---
EXAMINATION TYPE: CT ChestAbdPelvis w con DATE OF EXAM: 12/23/2021 COMPARISON: CT dated 06/23/2021 HISTORY: Ovarian cancer. CT DLP: 2107 mGycm Automated exposure control for dose reduction was used. CONTRAST: CT scan of the chest, abdomen and pelvis is performed with Oral Contrast and with IV Contrast, patien t injected with 100 mL of Isovue M300. FINDINGS: LUNGS: Stable 6 mm right lung pleural-based nodule (image 25, series 4). Minimal bilateral posterior basal pulmonary reticulations and subsegmental atelectasis. Unremarkable lungs otherwise. Patent cent ral airways. No pleural effusion. MEDIASTINUM: No pathologically enlarged lymph nodes in the chest. No gross cardiomegaly. No pericardi al effusion. A Port-A-Cath is seen with the tip at the atriocaval junction. OTHER: No aggressive bone lesion. LIVER/GB: Bulky liver measuring 17.7 cm. 4 mm hypodensity seen in the right hepatic dome, not well ap preciated previously. No other definite hepatic focal lesion identified. Unremarkable gallbladder. PANCREAS: Fatty infiltration of the pancreatic head. SPLEEN: No significant abnormality is seen. ADRENALS: No significant abnormality is seen. KIDNEYS: No significant abnormality is seen. BOWEL: No significant abnormality is seen. REPRODUCTIVE ORGANS: Previous hysterectomy. No gross adnexal mass. Soft tissue thickening along the r ight side of the vagina vault measuring up to 19 mm, not well appreciated previously. Attention on fo llow-up. Further PET scan assessment can be also considered. LYMPH NODES: No greater than 1 cm abdominal or pelvic lymph nodes are appreciated. OSSEOUS STRUCTURES: No aggressive bone lesion. OTHER: Unremarkable abdominal aorta and IVC. No sizable ascites. Anterior abdominal wall midline inci jed scar. IMPRESSION: 1. 19 mm soft tissue thickening at the right side of the vagina vault as described above, not well ap preciated previously. It is incompletely characterized by this CT scan. Attention on follow-up. Furth er pelvic ultrasound or PET scan assessment can be considered. 2. 4 mm tiny hypodensity in the right hepatic dome, not well appreciated previously and could represe nt a tiny cyst. Further targeted ultrasound assessment can be considered. 3. Otherwise no evidence of metastatic disease seen in the chest, abdomen or the pelvis. Incidental f indings as described above.
== END | disposition home or self-care (01) ==
LOC: RADCTMAIN 11:30
PROVIDERS: ATTEND Internal Medicine Hematology & Oncology
DX: C56.9 Malignant neoplasm of unspecified ovary (principal); R91.1 Solitary pulmonary nodule; N88.8 Other specified noninflammatory disorders of cervix uteri; K76.89 Other specified diseases of liver
CPT/HCPCS: 82565; 84520; 71260; 74177; 36415; Q9967

== ENCOUNTER → 2022-01-12 | Outpatient (CLI) | payer MEDICARE, OTHER ==
[2022-01-12 15:00] VITALS: BP 104/71; PULSE 77; RESP 12; TEMP 98.4
--- NOTE | 2022-01-12 17:27 | P.HPOB ---
History of Present Illness H&P Date: 01/12/22 Chief Complaint: The patient is here for her routine gynecologic exam. This is a 36-year-old with an LMP of 2015. The patient was scheduled for a routine gynecologic exam. Upon talking with the patient, she is also being seen because of her history of uterine cancer and an abnormal CT scan done on 12/23/2021. The patient had abnormal dysfunctional uterine bleeding for much of 2015. At that time she lived in [place]. She states she was hospitalized and did require blood transfusions because of the frequent heavy vaginal bleeding. An endometrial biopsy was done in the hospital and she was found to have endometrial cancer. She then underwent a FRANCY/BSO in September 2016. She was told she had stage III uterine cancer. According to her current oncologist, Dr. Varela, she was diagnosed with a mixed mullerian endometrial cancer. She underwent chemotherapy and radiation therapy which was completed in 2016. She moved to [place] and started seeing an oncologist in [facility]. An imaging study demonstrated signs of a recurrence of the cancer and she underwent a six-month course of chemotherapy in 2018. She has been followed with regular CT scans. The CT scan of the chest, abdomen, and pelvis done on 12/23/2021 showed a new finding of soft tissue thickening along the right side of the vaginal vault that was measured at 19 mm in one dimension. I have reviewed this CT scan with Dr. Soler, the radiologist and was able to compare it with previous CT scans. Dr. Soler felt that this finding was a new finding and it measured approximately 19 x 37 mm. He felt it was near the vagina, but seem to be more in the area of the cul-de-sac. The patient denies any or abdominal bloating. She denies any vaginal bleeding. Review of Systems The patient's weight has been stable over the last year. She denies respiratory, cardiac, or G.I. problems. Past Medical History Past Medical History: Asthma, Cancer, CVA/TIA, Diabetes Mellitus, GERD/Reflux Additional Past Medical History / Comment(s): TIA 2015, 2018-no residual effects. Type 2 diabetes requiring insulin, cardiac arrhythmia. 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 She has no history of STDs. History of Any Multi-Drug Resistant Organisms: None Reported Past Surgical History: Adenoidectomy, Hysterectomy, Tonsillectomy Additional Past Surgical History / Comment(s): colonoscopy. FRANCY/BSO 2015 for uterine cancer. Past Anesthesia/Blood Transfusion Reactions: No Reported Reaction Past Psychological History: Anxiety Smoking Status: Current every day smoker (Half pack per day.) Past Alcohol Use History: None Reported Additional Past Alcohol Use History / Comment(s): 1/2ppd for 20+ yrs. Past Drug Use History: None Reported Additional History: She is since 2014 and is currently not seeing anybody at this time and has not been sexually active recently. 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 - Past Family History Mother Family Medical History: Diabetes Mellitus Additional Family Medical History / Comment(s): 2005. Maternal aunt had brain cancer. Father Additional Family Medical History / Comment(s): "Fluid and lungs". 1990. Paternal aunt had breast cancer. Brother(s) Family Medical History: Hyperlipidemia, Hypertension Medications and Allergies Home Medications Medication Instructions Recorded Confirmed Type oxyCODONE-APAP 10-325MG [Percocet 1 tab PO Q6H PRN 11/16/18 01/12/22 History 10-325 mg] Atorvastatin [Lipitor] 40 mg PO DAILY 08/08/19 01/12/22 History Pantoprazole Sodium [Protonix] 40 mg PO DAILY 08/08/19 01/12/22 History Prochlorperazine Maleate 10 mg PO Q8H PRN 08/08/19 01/12/22 History Topiramate [Topamax] 50 mg PO BID 08/08/19 01/12/22 History lisinopriL [Zestril] 5 mg PO DAILY 08/08/19 01/12/22 History INSULIN ASPART (NovoLOG) [NovoLOG See Protocol SQ AC-TID 09/23/19 01/12/22 History (formulary)] Metoprolol Succinate [Toprol XL] 25 mg PO DAILY 03/28/20 01/12/22 History metFORMIN HCL [metFORMIN HCL ER] 750 mg PO HS 03/28/20 01/12/22 History Dicyclomine [Bentyl] 20 mg PO QID PRN 05/11/21 01/12/22 History EPINEPHrine (Auto Inject) [Epipen] 0.3 mg IM ONCE PRN 05/11/21 01/12/22 History Famotidine [Pepcid] 20 mg PO HS PRN 05/11/21 01/12/22 History methocarbamoL [Robaxin] 750 mg PO BID PRN 05/11/21 01/12/22 History Insulin Glargine,Hum.rec.anlog 25 units SQ HS 01/12/22 01/12/22 History [Lantus Solostar Pen] Allergies Allergy/AdvReac Type Severity Reaction Status Date / Time ampicillin Allergy Unknown Verified 05/30/21 10:50 Childhood baclofen Allergy Anaphylaxis Unverified 01/12/22 14:47 ciprofloxacin [From Cipro] Allergy Anaphylaxis Verified 05/30/21 10:50 hydromorphone [From Dilaudid] Allergy Rash/Hives Verified 05/30/21 10:50 promethazine [From Phenergan] Allergy Rash/Hives Verified 05/30/21 10:50 sulfamethoxazole Allergy Rash/Hives Unverified 01/12/22 14:47 [From Bactrim] trimethoprim [From Bactrim] Allergy Rash/Hives Unverified 01/12/22 14:47 Exam Vital Signs Temp Pulse Resp BP Pulse Ox 01/12/22 14:55 98.4 F 77 12 104/71 97 Intake and Output 01/12/22 01/12/22 01/12/22 06:59 14:59 22:59 Other: Weight 125.191 kg Height 5 feet 3 inches, weight 276 pounds, BMI 48.9. This is a well-developed well-nourished obese white female who is alert and oriented times 3 in no acute distress. HEENT: Within normal limits. NECK: Supple without mass or thyromegaly. CHEST AND LUNGS: Clear to auscultation. HEART: Regular rate and rhythm. BREASTS: Are without mass or discharge. AXILLARY EXAM: Negative for adenopathy. BACK: Negative for CVA tenderness. ABDOMEN: Soft, obese, nontender, without palpable masses. PELVIC EXAM: External genitalia appears normal. Vagina appears normal. There is no evidence of prolapse. Bimanual examination is negative for mass or tenderness. Bimanual examination is somewhat limited secondary to her size. RECTAL EXAM: Rectovaginal exam is negative for mass or tenderness. EXTREMITIES: Nontender. IMPRESSION: 1. 36-year-old menopausal female status post FRNACY/BSO for mixed mllerian endometrial cancer, stage III, status post chemotherapy and radiation therapy completed in 2017. 2. History of recurrence of cancer in 2019 which did require additional chemotherapy. 3. Abnormal new finding on CT scan of the abdomen and pelvis showing a 19 mm x 37 mm soft tissue thickening along the right side of the vagina which is not visible on inspection of the vagina and is also not palpable with vaginal or rectovaginal examination. Differential diagnosis will include recurrence of her endometrial cancer, other neoplasm -benign or malignant. 4. Multiple medical problems. 5. Incomplete database. PLAN: 1. Pap smear cotest of the vaginal cuff was performed. This was done because of her history of mixed mullerian endometrial cancer as the reason for her hysterectomy and because of the abnormal CT scan finding along the general vicinity of the right vaginal wall. 2. Self breast awareness was discussed with the patient. We have also discussed symptoms associated with inflammatory breast cancer. 3. We have had a long discussion regarding her cancer history and we have reviewed the CT scan findings. After a long discussion, she understands that I am recommending that she be in the care of a gynecologic oncologist to further evaluate the CT scan findings and to determine the best approach for monitoring and treatment. I have discussed this with her oncologist, Dr. Varela. We have decided that a referral to Dr. Addison, a gynecologic oncologist at the [facility] is in the patient's best interest. A referral will be made. 4. I recommended that she start mammogram screening at age 39. 5. She had COVID in 202 and states she has not had a Covid vaccination. She understands the CDC recommends vaccination. She will consider this. 6. She states her cancer treatment and surgery were done at [facility] in [place], [place]. Dr. Addison can obtain additional information from the patient's oncologist, , or from the hospital and caregivers in [place]. Time spent with the patient 60 minutes.
== END ==
LOC: WWCWWP 14:32
PROVIDERS: ATTEND Obstetrics & Gynecology
DX: Z01.419 Encounter for gynecological examination (general) (routine) without abnormal findings (principal); C54.1 Malignant neoplasm of endometrium; Z78.0 Asymptomatic menopausal state; Z90.710 Acquired absence of both cervix and uterus; J45.909 Unspecified asthma, uncomplicated; Z86.73 Personal history of transient ischemic attack (TIA), and cerebral infarction without residual deficits; E11.9 Type 2 diabetes mellitus without complications; F41.9 Anxiety disorder, unspecified; F17.210 Nicotine dependence, cigarettes, uncomplicated; K21.9 Gastro-esophageal reflux disease without esophagitis; Z79.4 Long term (current) use of insulin; Z88.1 Allergy status to other antibiotic agents; Z88.2 Allergy status to sulfonamides; Z88.5 Allergy status to narcotic agent

== ENCOUNTER 2022-02-14 16:15 | Emergency (ER) | payer MEDICARE, OTHER ==
[2022-02-14 16:24] VITALS: TEMP 97.9
--- NOTE | 2022-02-14 16:36 | ED ---
General Adult HPI - General Chief complaint: Arrhythmia/Palpitations Stated complaint: TAMIKO,Chest Flutter,Weakness Time Seen by Provider: 02/14/22 16:33 Source: patient Mode of arrival: wheelchair Limitations: no limitations - History of Present Illness Initial comments: Patient presents to the ED complaining of having rapid heart palpitations, lightheadedness and diffuse chest tightness for the past 5 hours or so. Patient states that she has a history of SVT, and she has had similar symptoms in the past. Patient denies alcohol or drug abuse. Patient denies fever or chills, headache, focal neuro deficit, visual changes, pleuritic pain, cough or cold symptoms, dyspnea, syncope, abdominal pain, nausea/vomiting/diarrhea, bloody or melanotic stool, dysuria or urinary symptoms, leg or calf swelling or pain, or any other symptoms or complaints. - Related Data Home Medications Medication Instructions Recorded Confirmed oxyCODONE-APAP 10-325MG [Percocet 1 tab PO Q6H PRN 11/16/18 01/12/22 10-325 mg] Atorvastatin [Lipitor] 40 mg PO DAILY 08/08/19 01/12/22 Pantoprazole Sodium [Protonix] 40 mg PO DAILY 08/08/19 01/12/22 Prochlorperazine Maleate 10 mg PO Q8H PRN 08/08/19 01/12/22 Topiramate [Topamax] 50 mg PO BID 08/08/19 01/12/22 lisinopriL [Zestril] 5 mg PO DAILY 08/08/19 01/12/22 INSULIN ASPART (NovoLOG) [NovoLOG See Protocol SQ AC-TID 09/23/19 01/12/22 (formulary)] Metoprolol Succinate [Toprol XL] 25 mg PO DAILY 03/28/20 01/12/22 metFORMIN HCL [metFORMIN HCL ER] 750 mg PO HS 03/28/20 01/12/22 Dicyclomine [Bentyl] 20 mg PO QID PRN 05/11/21 01/12/22 EPINEPHrine (Auto Inject) [Epipen] 0.3 mg IM ONCE PRN 05/11/21 01/12/22 Famotidine [Pepcid] 20 mg PO HS PRN 05/11/21 01/12/22 methocarbamoL [Robaxin] 750 mg PO BID PRN 05/11/21 01/12/22 Insulin Glargine,Hum.rec.anlog 25 units SQ HS 01/12/22 01/12/22 [Lantus Solostar Pen] Allergies Allergy/AdvReac Type Severity Reaction Status Date / Time ampicillin Allergy Unknown Verified 02/14/22 16:25 Childhood baclofen Allergy Anaphylaxis Verified 02/14/22 16:25 ciprofloxacin [From Cipro] Allergy Anaphylaxis Verified 02/14/22 16:25 hydromorphone [From Dilaudid] Allergy Rash/Hives Verified 02/14/22 16:25 promethazine [From Phenergan] Allergy Rash/Hives Verified 02/14/22 16:25 sulfamethoxazole Allergy Rash/Hives Verified 02/14/22 16:25 [From Bactrim] trimethoprim [From Bactrim] Allergy Rash/Hives Verified 02/14/22 16:25 Review of Systems ROS Statement: Those systems with pertinent positive or pertinent negative responses have been documented in the HPI. ROS Other: All systems not noted in ROS Statement are negative. Past Medical History Past Medical History: Asthma, Cancer, CVA/TIA, Diabetes Mellitus, GERD/Reflux Additional Past Medical History / Comment(s): TIA 2015, 2018-no residual effects. Type 2 diabetes requiring insulin, cardiac arrhythmia. 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 She has no history of STDs. History of Any Multi-Drug Resistant Organisms: None Reported Past Surgical History: Adenoidectomy, Hysterectomy, Tonsillectomy Additional Past Surgical History / Comment(s): colonoscopy. FRANCY/BSO 2015 for uterine cancer. Past Anesthesia/Blood Transfusion Reactions: No Reported Reaction Past Psychological History: Anxiety Smoking Status: Current every day smoker Past Alcohol Use History: None Reported Past Drug Use History: None Reported - Past Family History Mother Family Medical History: Diabetes Mellitus Additional Family Medical History / Comment(s): 2005. Maternal aunt had brain cancer. Father Additional Family Medical History / Comment(s): "Fluid and lungs". 1990. Paternal aunt had breast cancer. Brother(s) Family Medical History: Hyperlipidemia, Hypertension General Exam Limitations: no limitations General appearance: alert, in no apparent distress Head exam: Present: atraumatic, normocephalic Eye exam: Present: normal appearance, EOMI ENT exam: Present: mucous membranes moist Neck exam: Present: other (Trachea is in midline) Respiratory exam: Present: normal lung sounds bilaterally. Absent: respiratory distress, wheezes, rales, rhonchi, stridor Cardiovascular Exam: Present: normal rhythm, tachycardia, normal heart sounds, other (Weak, but palpable radial pulses bilaterally) GI/Abdominal exam: Present: soft. Absent: distended, tenderness, guarding Extremities exam: Present: other (Negative Homans sign bilaterally). Absent: tenderness, pedal edema, calf tenderness Neurological exam: Present: alert, oriented X3. Absent: motor sensory deficit Psychiatric exam: Present: normal affect, normal mood Skin exam: Present: warm, dry, intact, normal color Course Vital Signs 02/14/22 02/14/22 02/14/22 16:20 16:30 16:46 Temperature 97.9 F Pulse Rate 111 H 190 H 90 Respiratory 18 Rate Blood Pressure 112/65 120/80 O2 Sat by Pulse 98 Oximetry 02/14/22 02/14/22 16:57 18:56 Temperature Pulse Rate 94 94 Respiratory 20 18 Rate Blood Pressure 110/77 102/72 O2 Sat by Pulse 99 97 Oximetry - Reevaluation(s) Reevaluation #1: 02/14/22 19:18 Patient remains in a sinus rhythm, and she states that her palpitations/chest tightness/lightheadedness/symptoms have now resolved. Patient denies development of any new symptoms while in the ED. Patient remains alert and breathing comfortably with a normal room air oxygen saturation. Patient is aware of her test results, and she feels comfortable being discharged home at this time. Patient was counseled about SVT, as well as hyperkalemia, and she was clearly explained return and follow-up instructions. 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 Patient was also instructed to drink plenty of fluids. Patient feels comfortable with this plan. EKG Findings - EKG Comments: EKG Findings:: 1631 EKG- Superventricular tachycardia, ventricular rate of 190 bpm, normal QRS duration, normal QT interval, diffuse ST and T-wave abnormality. 1640 EKG- sinus tachycardia with first-degree AV block, ventricular rate of 103 bpm, no ectopy, RI interval of 228 ms, normal QRS duration, normal QT interval, normal axis, no ST or T-wave abnormality Procedures - Procedures Initial comment: 16:38- Modified Valsalva maneuver was performed with successful cardioversion from SVT to sinus tachycardia. Patient reports that her palpitations and lightheadedness have now improved. Medical Decision Making - Medical Decision Making Patient presented to the ED in SVT, and she was cardioverted on arrival to the ED with performance of a modified Valsalva maneuver. Patient has been in sinus rhythm since then. Patient states that her symptoms have resolved while in the ED. Patient's labs are fairly unremarkable other than a mildly elevated potassium level of 5.4. Patient has been hydrated with a liter of normal saline in the emergency department. I do not think the patient's mild hyperkalemia is the etiology of her SVT, and patient reports having bouts of SVT in the past. I do not feel that the patient requires hospital admission at this time. 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 Patient was also given clear return instructions. Patient feels comfortable with this plan. - Lab Data Result diagrams: 02/14/22 17:06 02/14/22 17:06 Lab Results 02/14/22 02/14/22 02/14/22 Range/Units 17:06 17:06 17:06 WBC 12.5 H (3.8-10.6) k/uL RBC 5.52 H (3.80-5.40) m/uL Hgb 16.3 H (11.4-16.0) gm/dL Hct 49.0 H (34.0-46.0) % MCV 88.9 (80.0-100.0) fL MCH 29.6 (25.0-35.0) pg MCHC 33.3 (31.0-37.0) g/dL RDW 13.9 (11.5-15.5) % Plt Count 379 (150-450) k/uL MPV 10.0 Neutrophils % 59 % Lymphocytes % 30 % Monocytes % 6 % Eosinophils % 3 % Basophils % 1 % Neutrophils # 7.4 (1.3-7.7) k/uL Lymphocytes # 3.7 (1.0-4.8) k/uL Monocytes # 0.7 (0-1.0) k/uL Eosinophils # 0.3 (0-0.7) k/uL Basophils # 0.1 (0-0.2) k/uL PT 10.4 (9.0-12.0) sec INR 1.0 (<1.2) APTT 23.4 (22.0-30.0) sec Sodium 138 (137-145) mmol/L Potassium 5.4 H (3.5-5.1) mmol/L Chloride 106 (98-107) mmol/L Carbon Dioxide 20 L (22-30) mmol/L Anion Gap 12 mmol/L BUN 17 (7-17) mg/dL Creatinine 0.84 (0.52-1.04) mg/dL Est GFR (CKD-EPI)AfAm >90 (>60 ml/min/1.73 sqM) Est GFR (CKD-EPI)NonAf 89 (>60 ml/min/1.73 sqM) Glucose 158 H (74-99) mg/dL Calcium 9.9 (8.4-10.2) mg/dL Magnesium 1.7 (1.6-2.3) mg/dL Total Bilirubin 1.0 (0.2-1.3) mg/dL AST 36 (14-36) U/L ALT 24 (4-34) U/L Alkaline Phosphatase 108 (38-126) U/L Troponin I (0.000-0.034) ng/mL Total Protein 8.1 (6.3-8.2) g/dL Albumin 4.7 (3.5-5.0) g/dL TSH 5.480 H (0.465-4.680) mIU/L 02/14/22 Range/Units 17:06 WBC (3.8-10.6) k/uL RBC (3.80-5.40) m/uL Hgb (11.4-16.0) gm/dL Hct (34.0-46.0) % MCV (80.0-100.0) fL MCH (25.0-35.0) pg MCHC (31.0-37.0) g/dL RDW (11.5-15.5) % Plt Count (150-450) k/uL MPV Neutrophils % % Lymphocytes % % Monocytes % % Eosinophils % % Basophils % % Neutrophils # (1.3-7.7) k/uL Lymphocytes # (1.0-4.8) k/uL Monocytes # (0-1.0) k/uL Eosinophils # (0-0.7) k/uL Basophils # (0-0.2) k/uL PT (9.0-12.0) sec INR (<1.2) APTT (22.0-30.0) sec Sodium (137-145) mmol/L Potassium (3.5-5.1) mmol/L Chloride (98-107) mmol/L Carbon Dioxide (22-30) mmol/L Anion Gap mmol/L BUN (7-17) mg/dL Creatinine (0.52-1.04) mg/dL Est GFR (CKD-EPI)AfAm (>60 ml/min/1.73 sqM) Est GFR (CKD-EPI)NonAf (>60 ml/min/1.73 sqM) Glucose (74-99) mg/dL Calcium (8.4-10.2) mg/dL Magnesium (1.6-2.3) mg/dL Total Bilirubin (0.2-1.3) mg/dL AST (14-36) U/L ALT (4-34) U/L Alkaline Phosphatase (38-126) U/L Troponin I <0.012 (0.000-0.034) ng/mL Total Protein (6.3-8.2) g/dL Albumin (3.5-5.0) g/dL TSH (0.465-4.680) mIU/L - Radiology Data Chest x-ray: Normal chest. No change. Critical Care Time Critical Care Time: Yes Total Critical Care Time: 30 Disposition Clinical Impression: Supraventricular tachycardia Disposition: HOME SELF-CARE Condition: Stable Instructions (If sedation given, give patient instructions): Supraventricular Tachycardia (ED), Hyperkalemia (ED) Additional Instructions: Return to the ER immediately should you develop return of your heart palpitations, new or worsening pain, shortness of breath, feeling dizzy or faint, a fever, or new or worsening symptoms. Follow up closely with your primary care provider. Is patient prescribed a controlled substance at d/c from ED?: No Referrals: Jerilyn Knott MD [Primary Care Provider] - 1-2 days Time of Disposition: 19:19
[2022-02-14 17:23] LABS: Basophils # (A) 0.1 k/uL (0-0.2); Basophils % (A) 1 %; Eosinophils # (A) 0.3 k/uL (0-0.7); Eosinophils % (A) 3 %; HGB 16.3 gm/dL (11.4-16.0); Lymphocytes # (A) 3.7 k/uL (1.0-4.8); Lymphocytes % (A) 30 %; MCH 29.6 pg (25.0-35.0); MCHC 33.3 g/dL (31.0-37.0); MCV 88.9 fL (80.0-100.0); Monocytes # (A) 0.7 k/uL (0-1.0); Monocytes % (A) 6 %; Neutrophils # (A) 7.4 k/uL (1.3-7.7); Neutrophils % (A) 59 %; Platelet Count 379 k/uL (150-450); RBC 5.52 m/uL (3.80-5.40); RDW 13.9 % (11.5-15.5); WBC 12.5 k/uL (3.8-10.6)
[2022-02-14 17:33] LABS: ALT 24 U/L (4-34); AST 36 U/L (14-36); African American GFR (CKD) >90 (>60 ml/min/1.73 sqM); Albumin 4.7 g/dL (3.5-5.0); Alkaline Phosphatase 108 U/L (38-126); Anion Gap 12 mmol/L; Blood Urea Nitrogen 17 mg/dL (7-17); Calcium 9.9 mg/dL (8.4-10.2); Carbon Dioxide 20 mmol/L (22-30); Chloride 106 mmol/L (98-107); Glucose 158 mg/dL (74-99); Magnesium 1.7 mg/dL (1.6-2.3); Non-African American GFR(CKD) 89 (>60 ml/min/1.73 sqM); Potassium 5.4 mmol/L (3.5-5.1); Sodium 138 mmol/L (137-145); Total Protein 8.1 g/dL (6.3-8.2)
[2022-02-14 17:34] LABS: Partial Thromboplastin Time 23.4 sec (22.0-30.0); Prothrombin Time 10.4 sec (9.0-12.0)
--- NOTE | 2022-02-14 17:48 | XR ---
EXAMINATION TYPE: XR chest 1V portable DATE OF EXAM: 02/14/2022 COMPARISON: 05/11/2021 HISTORY: Dysrhythmia TECHNIQUE: Single view FINDINGS: Heart and mediastinum are normal. Lungs are clear. Diaphragm is normal. Bony thorax is inta ct. There is right central venous catheter with tip in the superior vena cava. IMPRESSION: Normal chest. No change.
[2022-02-14] MEDS ORDERED: SODIUM CHLORIDE 0.9% 1,000 ML IV ONE (18:08)
[2022-02-14 19:30] VITALS: BP 108/75; PULSE 91; RESP 16
== END 2022-02-14 19:28 | disposition home or self-care (01) ==
LOC: EC 16:15
DX: I47.1 Supraventricular tachycardia (principal); J45.909 Unspecified asthma, uncomplicated; Z86.73 Personal history of transient ischemic attack (TIA), and cerebral infarction without residual deficits; E11.9 Type 2 diabetes mellitus without complications; K21.9 Gastro-esophageal reflux disease without esophagitis; Z79.83 Long term (current) use of bisphosphonates; F17.200 Nicotine dependence, unspecified, uncomplicated; Z88.0 Allergy status to penicillin; Z88.1 Allergy status to other antibiotic agents; Z88.5 Allergy status to narcotic agent; Z88.8 Allergy status to other drugs, medicaments and biological substances
CPT/HCPCS: 36415; 71045; 80053; 83735; 84443; 84484; 85025; 85610; 85730; 93005

== ENCOUNTER → 2022-03-05 | Outpatient (CLI) | payer MEDICARE, OTHER ==
--- NOTE | 2022-03-07 09:58 | PE ---
EXAMINATION TYPE: PET CT fusion skull to thigh DATE OF EXAM: 03/05/2022 COMPARISON: Most recent CT December 23, 2021 and older studies. HISTORY: Endometrial cancer progress study. Diagnosed on hysterectomy September 2016. Completed chem other2018. TECHNIQUE: Following the intravenous administration of 10.07 mCi of F-18 FDG, whole body images are performed from the skull base to the midthigh. Images are reviewed on the computer in the coronal, a xial, and sagittal planes. Reconstructed rotating images are created on independent workstation and reviewed on the computer. A localization and attenuation correction CT is performed in conjunction with the PET scan. Blood glucose level equals 203. SCAN: Subsequent Scan FINDINGS: Exam noted suboptimal due to large body habitus. SKULL BASE AND NECK: No areas of abnormal hypermetabolic uptake. CHEST, MEDIASTINUM, AND HILAR REGION: No areas of abnormal hypermetabolic uptake. ABDOMEN AND PELVIS: No areas of abnormal hypermetabolic uptake. Hysterectomy changes noted. Surgical clip right pelvis axial image 211 again seen. Recent visualized between 9 cm nodule just superior to this not as well seen may be present image 197, no abnormal hypermetabolic uptake at this level is se en. OSSEOUS STRUCTURES: No areas of abnormal hypermetabolic uptake. OTHER CT: Stable right internal jugular Mediport catheter. There are low lung volumes redemonstrated. IMPRESSION: No abnormal hypermetabolic uptake to suggest local or metastatic malignant recurrence.
== END | disposition home or self-care (01) ==
LOC: RADPETMAIN 09:59
PROVIDERS: ATTEND Obstetrics & Gynecology
DX: C54.1 Malignant neoplasm of endometrium (principal)
CPT/HCPCS: 78815; A9552

== ENCOUNTER 2022-06-01 14:00 | Emergency (ER) | payer MEDICARE, OTHER ==
[2022-06-01 14:38] LABS: Basophils # (A) 0.1 k/uL (0-0.2); Basophils % (A) 1 %; Eosinophils # (A) 0.2 k/uL (0-0.7); Eosinophils % (A) 1 %; HCT 45.8 % (34.0-46.0); HGB 14.9 gm/dL (11.4-16.0); Lymphocytes % (A) 27 %; MCH 28.6 pg (25.0-35.0); MCHC 32.6 g/dL (31.0-37.0); MCV 87.9 fL (80.0-100.0); Mean Platelet Volume 9.6; Monocytes # (A) 0.6 k/uL (0-1.0); Monocytes % (A) 6 %; Neutrophils # (A) 7.1 k/uL (1.3-7.7); Neutrophils % (A) 64 %; Platelet Count 249 k/uL (150-450); RBC 5.21 m/uL (3.80-5.40); RDW 13.3 % (11.5-15.5); WBC 11.2 k/uL (3.8-10.6)
[2022-06-01 14:48] LABS: Partial Thromboplastin Time 23.8 sec (22.0-30.0)
[2022-06-01 14:49] LABS: ALT 23 U/L (4-34); AST 23 U/L (14-36); African American GFR (CKD) >90 (>60 ml/min/1.73 sqM); Albumin 4.2 g/dL (3.5-5.0); Alkaline Phosphatase 90 U/L (38-126); Anion Gap 13 mmol/L; Blood Urea Nitrogen 15 mg/dL (7-17); Calcium 9.3 mg/dL (8.4-10.2); Carbon Dioxide 18 mmol/L (22-30); Chloride 106 mmol/L (98-107); Glucose 177 mg/dL (74-99); Magnesium 1.3 mg/dL (1.6-2.3); Non-African American GFR(CKD) 85 (>60 ml/min/1.73 sqM); Potassium 4.2 mmol/L (3.5-5.1); Sodium 137 mmol/L (137-145); Total Bilirubin 0.3 mg/dL (0.2-1.3)
--- NOTE | 2022-06-01 14:52 | XR ---
EXAMINATION TYPE: XR chest 2V DATE OF EXAM: 06/01/2022 2:45 PM COMPARISON: Chest radiographs from 02/14/2022, PET/CT 03/05/2022 TECHNIQUE: XR chest 2V Frontal and lateral views of the chest. CLINICAL INDICATION:Female, 36 years old with history of dysrhythmia; FINDINGS: Lungs/Pleura: There is no evidence of pleural effusion, focal consolidation, or pneumothorax. Pulmonary vascularity: Unremarkable. Heart/mediastinum: Cardiomediastinal silhouette is unremarkable. Musculoskeletal: No acute osseous pathology. Other findings: None Lines/Tubes:Ijrwwr-t-Eujx projecting over the right hemithorax with distal tip at the cavoatrial junc tion. IMPRESSION: No acute cardiopulmonary disease/process.
--- NOTE | 2022-06-01 16:08 | ED ---
General Adult HPI - General Chief complaint: Arrhythmia/Palpitations Stated complaint: dizzy,near syncope,rapid heart rate Time Seen by Provider: 06/01/22 15:26 Source: patient, RN notes reviewed, old records reviewed Mode of arrival: ambulatory Limitations: no limitations - History of Present Illness Initial comments: 36-year-old female history of SVT presenting with chief complaint of palpitations, chest discomfort and difficulty breathing. Symptoms have been ongoing for some time but specifically over the past 7 days. She was seen by her manufacturing engineer assembly to increase her dose of metoprolol to 50 mg twice daily. He did recommend ablation but the patient declined. No diaphoresis. No vomiting. She has remote history of uterine cancer status post hysterectomy and chemo and radiation. No cough or fever. - Related Data Home Medications Medication Instructions Recorded Confirmed oxyCODONE-APAP 10-325MG [Percocet 1 tab PO Q6H PRN 11/16/18 01/12/22 10-325 mg] Atorvastatin [Lipitor] 40 mg PO DAILY 08/08/19 01/12/22 Pantoprazole Sodium [Protonix] 40 mg PO DAILY 08/08/19 01/12/22 Prochlorperazine Maleate 10 mg PO Q8H PRN 08/08/19 01/12/22 Topiramate [Topamax] 50 mg PO BID 08/08/19 01/12/22 lisinopriL [Zestril] 5 mg PO DAILY 08/08/19 01/12/22 INSULIN ASPART (NovoLOG) [NovoLOG See Protocol SQ AC-TID 09/23/19 01/12/22 (formulary)] Metoprolol Succinate [Toprol XL] 25 mg PO DAILY 03/28/20 01/12/22 metFORMIN HCL [metFORMIN HCL ER] 750 mg PO HS 03/28/20 01/12/22 Dicyclomine [Bentyl] 20 mg PO QID PRN 05/11/21 01/12/22 EPINEPHrine (Auto Inject) [Epipen] 0.3 mg IM ONCE PRN 05/11/21 01/12/22 Famotidine [Pepcid] 20 mg PO HS PRN 05/11/21 01/12/22 methocarbamoL [Robaxin] 750 mg PO BID PRN 05/11/21 01/12/22 Insulin Glargine,Hum.rec.anlog 25 units SQ HS 01/12/22 01/12/22 [Lantus Solostar Pen] Allergies Allergy/AdvReac Type Severity Reaction Status Date / Time ampicillin Allergy Unknown Verified 06/01/22 14:05 Childhood baclofen Allergy Anaphylaxis Verified 06/01/22 14:05 ciprofloxacin [From Cipro] Allergy Anaphylaxis Verified 06/01/22 14:05 hydromorphone [From Dilaudid] Allergy Rash/Hives Verified 06/01/22 14:05 promethazine [From Phenergan] Allergy Rash/Hives Verified 06/01/22 14:05 sulfamethoxazole Allergy Rash/Hives Verified 06/01/22 14:05 [From Bactrim] trimethoprim [From Bactrim] Allergy Rash/Hives Verified 06/01/22 14:05 Review of Systems ROS Statement: Those systems with pertinent positive or pertinent negative responses have been documented in the HPI. ROS Other: All systems not noted in ROS Statement are negative. Past Medical History Past Medical History: Asthma, Cancer, CVA/TIA, Diabetes Mellitus, GERD/Reflux Additional Past Medical History / Comment(s): TIA 2015, 2018-no residual effects. Type 2 diabetes requiring insulin, cardiac arrhythmia. 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 She has no history of STDs. History of Any Multi-Drug Resistant Organisms: None Reported Past Surgical History: Adenoidectomy, Hysterectomy, Tonsillectomy Additional Past Surgical History / Comment(s): colonoscopy. FRANCY/BSO 2015 for uterine cancer. Past Anesthesia/Blood Transfusion Reactions: No Reported Reaction Past Psychological History: Anxiety Smoking Status: Current every day smoker Past Alcohol Use History: None Reported Past Drug Use History: None Reported - Past Family History Mother Family Medical History: Diabetes Mellitus Additional Family Medical History / Comment(s): 2005. Maternal aunt had brain cancer. Father Additional Family Medical History / Comment(s): "Fluid and lungs". 1990. Paternal aunt had breast cancer. Brother(s) Family Medical History: Hyperlipidemia, Hypertension General Exam Limitations: no limitations General appearance: alert, in no apparent distress Head exam: Present: atraumatic, normocephalic Eye exam: Present: normal appearance, PERRL ENT exam: Present: normal exam Neck exam: Present: normal inspection. Absent: tenderness, meningismus Respiratory exam: Present: normal lung sounds bilaterally. Absent: respiratory distress, wheezes Cardiovascular Exam: Present: regular rate, normal rhythm GI/Abdominal exam: Present: soft. Absent: distended, tenderness, guarding Extremities exam: Present: normal inspection, normal capillary refill Neurological exam: Present: alert, oriented X3, CN II-XII intact. Absent: motor sensory deficit Psychiatric exam: Present: normal affect, normal mood Skin exam: Present: warm, dry, intact. Absent: cyanosis, diaphoretic Course Vital Signs 06/01/22 06/01/22 06/01/22 14:02 15:50 16:05 Temperature 97.6 F 97.8 F Pulse Rate 73 66 Pulse Rate [ 66 Bilateral Radial] Respiratory 20 17 Rate Blood Pressure 125/72 106/91 O2 Sat by Pulse 96 96 Oximetry EKG Findings - EKG Comments: EKG Findings:: EKG: Sinus rhythm, low voltage, rate 73, VT interval 149, QRS duration 98, QTC 398, no ST segment elevation. Medical Decision Making - Medical Decision Making 36-year-old female presenting with palpitations. Patient is in sinus rhythm. She has a previous history of SVT. She is on metoprolol. Workup is initiated. Chest x-ray clear. Normal CBC, CMP shows a hypomagnesemia which is replaced. Patient does have a positive d-dimer. This is evaluated with CT angiogram which is negative. Troponin is negative. She is reassured. She does have good follow-up with cardiology is unchanged and she is instructed to follow-up with h er primary care physician. - Lab Data Result diagrams: 06/01/22 14:24 06/01/22 14:24 Lab Results 06/01/22 06/01/22 06/01/22 Range/Units 14:24 14:24 14:24 WBC 11.2 H (3.8-10.6) k/uL RBC 5.21 (3.80-5.40) m/uL Hgb 14.9 (11.4-16.0) gm/dL Hct 45.8 (34.0-46.0) % MCV 87.9 (80.0-100.0) fL MCH 28.6 (25.0-35.0) pg MCHC 32.6 (31.0-37.0) g/dL RDW 13.3 (11.5-15.5) % Plt Count 249 (150-450) k/uL MPV 9.6 Neutrophils % 64 % Lymphocytes % 27 % Monocytes % 6 % Eosinophils % 1 % Basophils % 1 % Neutrophils # 7.1 (1.3-7.7) k/uL Lymphocytes # 3.0 (1.0-4.8) k/uL Monocytes # 0.6 (0-1.0) k/uL Eosinophils # 0.2 (0-0.7) k/uL Basophils # 0.1 (0-0.2) k/uL PT 11.0 (9.0-12.0) sec INR 1.0 (<1.2) APTT 23.8 (22.0-30.0) sec D-Dimer (<0.60) mg/L FEU Sodium 137 (137-145) mmol/L Potassium 4.2 (3.5-5.1) mmol/L Chloride 106 (98-107) mmol/L Carbon Dioxide 18 L (22-30) mmol/L Anion Gap 13 mmol/L BUN 15 (7-17) mg/dL Creatinine 0.88 (0.52-1.04) mg/dL Est GFR (CKD-EPI)AfAm >90 (>60 ml/min/1.73 sqM) Est GFR (CKD-EPI)NonAf 85 (>60 ml/min/1.73 sqM) Glucose 177 H (74-99) mg/dL Calcium 9.3 (8.4-10.2) mg/dL Magnesium 1.3 L (1.6-2.3) mg/dL Total Bilirubin 0.3 (0.2-1.3) mg/dL AST 23 (14-36) U/L ALT 23 (4-34) U/L Alkaline Phosphatase 90 (38-126) U/L Troponin I (0.000-0.034) ng/mL Total Protein 7.0 (6.3-8.2) g/dL Albumin 4.2 (3.5-5.0) g/dL 06/01/22 06/01/22 Range/Units 14:24 14:24 WBC (3.8-10.6) k/uL RBC (3.80-5.40) m/uL Hgb (11.4-16.0) gm/dL Hct (34.0-46.0) % MCV (80.0-100.0) fL MCH (25.0-35.0) pg MCHC (31.0-37.0) g/dL RDW (11.5-15.5) % Plt Count (150-450) k/uL MPV Neutrophils % % Lymphocytes % % Monocytes % % Eosinophils % % Basophils % % Neutrophils # (1.3-7.7) k/uL Lymphocytes # (1.0-4.8) k/uL Monocytes # (0-1.0) k/uL Eosinophils # (0-0.7) k/uL Basophils # (0-0.2) k/uL PT (9.0-12.0) sec INR (<1.2) APTT (22.0-30.0) sec D-Dimer 0.58 (<0.60) mg/L FEU Sodium (137-145) mmol/L Potassium (3.5-5.1) mmol/L Chloride (98-107) mmol/L Carbon Dioxide (22-30) mmol/L Anion Gap mmol/L BUN (7-17) mg/dL Creatinine (0.52-1.04) mg/dL Est GFR (CKD-EPI)AfAm (>60 ml/min/1.73 sqM) Est GFR (CKD-EPI)NonAf (>60 ml/min/1.73 sqM) Glucose (74-99) mg/dL Calcium (8.4-10.2) mg/dL Magnesium (1.6-2.3) mg/dL Total Bilirubin (0.2-1.3) mg/dL AST (14-36) U/L ALT (4-34) U/L Alkaline Phosphatase (38-126) U/L Troponin I <0.012 (0.000-0.034) ng/mL Total Protein (6.3-8.2) g/dL Albumin (3.5-5.0) g/dL Disposition Clinical Impression: Palpitations Disposition: HOME SELF-CARE Condition: Fair Instructions (If sedation given, give patient instructions): Heart Palpitations (ED) Is patient prescribed a controlled substance at d/c from ED?: No Referrals: Jerilyn Knott MD [Primary Care Provider] - 1-2 days Rodriguez Kumar MD [STAFF PHYSICIAN] - 1-2 days Time of Disposition: 16:45
[2022-06-01] MEDS: MAGNESIUM SULFATE-D5W PMX 1 GM in DEXTROSE/WATER 1 100ML.BAG IVPB SCH ×2 (16:25→17:26)
--- NOTE | 2022-06-01 16:33 | CT ---
EXAMINATION TYPE: CT angio chest CT DLP: 716.1 mGycm, Automated exposure control for dose reduction was used. DATE OF EXAM: 06/01/2022 4:27 PM COMPARISON: 12/23/2021 as well as 03/05/2022 PET/CT. CLINICAL INDICATION:Female, 36 years old with history of CP pos dimer; CP pos dimer TECHNIQUE/CONTRAST: CTA scan of the thorax is performed with IV Contrast, patient injected with 100ml mL of Isovue 370, p ulmonary embolism protocol. MIP images are created and reviewed. FINDINGS: Pulmonary Artery: There is no evidence for a filling defect within the pulmonary vasculature to sugge st acute pulmonary embolism. The pulmonary artery is of normal size. Lungs/Pleura: No evidence of focal consolidation, pleural effusion or pneumothorax. Right middle lobe nodule seen on prior is actually most consistent with intrafissural lymph node within the right fabiana r fissure. Airway: Large airways are patent. Heart: Heart is within normal limits for size.. Vasculature: No evidence of aortic aneurysm. Mediastinum: No gross evidence of adenopathy. Musculoskeletal: No acute osseous abnormalities Soft Tissues: Right chest Cnvdho-n-Jjuk with distal tip terminating in the superior vena cava. Lower neck: No significant findings. Upper Abdomen: No significant findings. IMPRESSION: 1. No evidence of pulmonary embolism.
[2022-06-01 18:38] VITALS: PULSE 59; RESP 18; TEMP 98.4
[2022-06-01] MEDS ORDERED: SODIUM CHLORIDE 0.9% 500 ML 500 ML IV ONE (18:39)
[2022-06-01 19:07] VITALS: BP 98/68
== END 2022-06-01 19:08 | disposition home or self-care (01) ==
LOC: EC 14:00
DX: R00.2 Palpitations (principal); J45.909 Unspecified asthma, uncomplicated; E11.9 Type 2 diabetes mellitus without complications; K21.9 Gastro-esophageal reflux disease without esophagitis; Z86.73 Personal history of transient ischemic attack (TIA), and cerebral infarction without residual deficits; F41.9 Anxiety disorder, unspecified; F17.200 Nicotine dependence, unspecified, uncomplicated; Z88.0 Allergy status to penicillin; Z88.6 Allergy status to analgesic agent; Z88.1 Allergy status to other antibiotic agents; Z88.5 Allergy status to narcotic agent; Z88.2 Allergy status to sulfonamides; Z79.4 Long term (current) use of insulin; Z79.84 Long term (current) use of oral hypoglycemic drugs; Z79.899 Other long term (current) drug therapy
CPT/HCPCS: 36415; 93005; 85379; 80053; 83735; 84484; 85025; 85610; 85730; 71046; 71275; 99285; 96365; 96366; J3475; Q9967

== ENCOUNTER → 2022-12-28 | Outpatient (CLI) | payer MEDICARE, OTHER ==
[2022-12-28 09:57] LABS: African American GFR (CKD) >90 (>60 ml/min/1.73 sqM); Blood Urea Nitrogen 17 mg/dL (7-17); Non-African American GFR(CKD) >90 (>60 ml/min/1.73 sqM)
--- NOTE | 2022-12-28 11:36 | CT ---
EXAMINATION TYPE: CT abdomen pelvis w con DATE OF EXAM: 12/28/2022 COMPARISON: 12/23/2021 HISTORY: h/o ovarian CA CT DLP: 2002 mGycm CONTRAST: CT scan of the abdomen and pelvis is performed with Oral Contrast and with IV Contrast, patient injec ric with 70 mL of Isovue 300. FINDINGS: LUNG BASES-: No visible nodule. No infiltrate. LIVER/GB: No calcified gallstones. No space occupying hepatic lesion. Biliary tree is of normal ca liber. PANCREAS: No inflammation. No distinct mass. SPLEEN: No splenic enlargement. No lesion seen. ADRENALS: No nodule. No thickening. KIDNEYS/BLADDER: No hydronephrosis. No nephrolithiasis. No distinct renal mass. Urinary bladder g rossly unremarkable. BOWEL: Normal appendix. Normal bowel caliber. No inflammation. GENITAL ORGANS: Hysterectomy and oophorectomy changes. No evidence for recurrent or residual mass. V aginal cuff appears unremarkable at this time. No evidence for pelvic adenopathy or pelvic mass. LYMPH NODES: No greater than 1cm abdominal or pelvic lymph nodes are appreciated. AORTA: No significant abnormality. OSSEOUS STRUCTURES: No significant abnormality is seen. OTHER: No significant additional abnormality is seen. IMPRESSION: 1. No CT evidence to suggest tumor recurrence or metastatic disease.
== END | disposition home or self-care (01) ==
LOC: RADCTMAIN 09:21
PROVIDERS: ATTEND Internal Medicine Hematology & Oncology
DX: C56.9 Malignant neoplasm of unspecified ovary (principal); Z03.89 Encounter for observation for other suspected diseases and conditions ruled out
CPT/HCPCS: 82565; 84520; 74177; Q9967

== ENCOUNTER 2023-04-28 15:24 | Emergency (ER) | payer MEDICARE, OTHER ==
[2023-04-28 15:35] VITALS: TEMP 97.6
[2023-04-28 15:37] LABS: Glucose,Whole Blood 112 mg/dL (70-110)
[2023-04-28] MEDS ORDERED: MORPHINE SULFATE 4 MG/ML SYRINGE IVP STA (16:30)
--- NOTE | 2023-04-28 16:49 | ED ---
Chest Pain HPI - General Chief Complaint: Chest Pain Stated Complaint: chest pain Time Seen by Provider: 04/28/23 15:35 Source: patient Mode of arrival: wheelchair - History of Present Illness Initial Comments: 37-year-old female past medical history of asthma, ovarian cancer in remission, diabetes who presents to the emergency department reporting chest pain. States it started 15 minutes prior to hospital arrival. Describes it as 10 out of 10 pain. States it is a pressure sensation in her substernal region without radiation. Has associated shortness of breath. No nausea or vomiting. No history of DVT or PE. No cardiac history. Denies any calf pain or swelling. No concern for . No other alleviating, precipitating or modifying factors - Related Data Home Medications Medication Instructions Recorded Confirmed oxyCODONE-APAP 10-325MG [Percocet 1 tab PO TID PRN 11/16/18 04/28/23 10-325 mg] Atorvastatin [Lipitor] 40 mg PO DAILY 08/08/19 04/28/23 Pantoprazole Sodium [Protonix] 40 mg PO DAILY 08/08/19 04/28/23 Prochlorperazine Maleate 10 mg PO Q8H PRN 08/08/19 04/28/23 Topiramate [Topamax] 50 mg PO TID 08/08/19 04/28/23 lisinopriL [Zestril] 5 mg PO DAILY 08/08/19 04/28/23 INSULIN ASPART (NovoLOG) [NovoLOG See Protocol SQ TID-W/MEALS 09/23/19 04/28/23 (formulary)] metFORMIN HCL [metFORMIN HCL ER] 750 mg PO HS 03/28/20 04/28/23 EPINEPHrine (Auto Inject) [Epipen] 0.3 mg IM ONCE PRN 05/11/21 04/28/23 Famotidine [Pepcid] 20 mg PO HS 05/11/21 04/28/23 methocarbamoL [Robaxin] 750 mg PO BID 05/11/21 04/28/23 Insulin Glargine,Hum.rec.anlog 28 units SQ HS 01/12/22 04/28/23 [Lantus Solostar Pen] Aspirin EC [Ecotrin Low Dose] 81 mg PO DAILY 06/01/22 04/28/23 Dicyclomine HCl 10 mg PO TID 06/01/22 04/28/23 Gabapentin [Neurontin] 300 mg PO TID 06/01/22 04/28/23 Melatonin 5 mg PO HS PRN 06/01/22 04/28/23 Pediatric Multivitamin No.30 2 tab PO MOFR 06/01/22 04/28/23 [Multivitamin Children's Gummies] Pioglitazone [Actos] 30 mg PO DAILY 06/01/22 04/28/23 SUMAtriptan succinate [Imitrex] 50 mg PO BID PRN 06/01/22 04/28/23 Semaglutide [Ozempic] 1 mg SQ CHEEK 06/01/22 04/28/23 Albuterol Nebulized [Ventolin 2.5 mg INHALATION RT-QID PRN 04/28/23 04/28/23 Nebulized] Ascorbic Acid/Elderberry Fruit 2 tab PO MOFR 04/28/23 04/28/23 [Elderberry-Vit C 50-100 mg Chw] Metoprolol Succinate (ER) [Toprol 25 mg PO DAILY 04/28/23 04/28/23 Xl] Previous Rx's Medication Instructions Recorded Magnesium Oxide [Mag-Ox] 400 mg PO DAILY #30 tablet 04/28/23 Allergies Allergy/AdvReac Type Severity Reaction Status Date / Time ampicillin Allergy Unknown Verified 04/28/23 16:45 Childhood baclofen Allergy Anaphylaxis Verified 04/28/23 16:45 ciprofloxacin [From Cipro] Allergy Anaphylaxis Verified 04/28/23 16:45 hydromorphone [From Dilaudid] Allergy Rash/Hives Verified 04/28/23 16:45 promethazine [From Phenergan] Allergy Rash/Hives Verified 04/28/23 16:45 sulfamethoxazole Allergy Rash/Hives Verified 04/28/23 16:45 [From Bactrim] trimethoprim [From Bactrim] Allergy Rash/Hives Verified 04/28/23 16:45 Review of Systems ROS Statement: Those systems with pertinent positive or pertinent negative responses have been documented in the HPI. ROS Other: All systems not noted in ROS Statement are negative. Past Medical History Past Medical History: Asthma, Cancer, CVA/TIA, Diabetes Mellitus, GERD/Reflux Additional Past Medical History / Comment(s): stage 3 uterine cancer 2015, frequent nausea,vomiting & diarrhea for several months, TIA 2015, 2018-no residual effects History of Any Multi-Drug Resistant Organisms: None Reported Past Surgical History: Adenoidectomy, Hysterectomy, Tonsillectomy Additional Past Surgical History / Comment(s): colonoscopy Past Anesthesia/Blood Transfusion Reactions: No Reported Reaction Past Psychological History: Anxiety Smoking Status: Current every day smoker Past Alcohol Use History: None Reported Past Drug Use History: None Reported - Past Family History Mother Family Medical History: Diabetes Mellitus Additional Family Medical History / Comment(s): 2005. Maternal aunt had brain cancer. Father Additional Family Medical History / Comment(s): "Fluid and lungs". 1990. Paternal aunt had breast cancer. Brother(s) Family Medical History: Hyperlipidemia, Hypertension General Exam General appearance: alert, in no apparent distress Head exam: Present: atraumatic, normocephalic, normal inspection Eye exam: Present: normal appearance, PERRL, EOMI. Absent: scleral icterus, conjunctival injection, periorbital swelling ENT exam: Present: normal exam, mucous membranes moist Neck exam: Present: normal inspection. Absent: tenderness, meningismus, lymphadenopathy Respiratory exam: Present: normal lung sounds bilaterally. Absent: respiratory distress, wheezes, rales, rhonchi, stridor Cardiovascular Exam: Present: regular rate, normal rhythm, normal heart sounds. Absent: systolic murmur, diastolic murmur, rubs, gallop, clicks GI/Abdominal exam: Present: soft, normal bowel sounds. Absent: distended, tenderness, guarding, rebound, rigid Extremities exam: Present: normal inspection, full ROM, normal capillary refill. Absent: tenderness, pedal edema, joint swelling, calf tenderness Back exam: Present: normal inspection Neurological exam: Present: alert, oriented X3, CN II-XII intact Psychiatric exam: Present: normal affect, normal mood Skin exam: Present: warm, dry, intact, normal color. Absent: rash Course Vital Signs 04/28/23 04/28/23 04/28/23 15:30 16:00 16:30 Temperature 97.6 F Pulse Rate 99 92 93 Respiratory 22 16 13 Rate Blood Pressure 117/79 133/86 128/87 O2 Sat by Pulse 97 97 Oximetry 04/28/23 19:43 Temperature Pulse Rate 88 Respiratory 20 Rate Blood Pressure 130/80 O2 Sat by Pulse 98 Oximetry Chest Pain MDM - MDM Was pt. sent in by a medical professional or institution ([facility], [facility]ER, urgent care, hospital, or long term...) When possible be specific @ -No Did you speak to anyone other than the patient for history (EMS, parent, family, police, friend...)? What history was obtained from this source @ -No Did you review nursing and triage notes (agree or disagree)? Why? @ -I reviewed and agree with nursing and triage notes Were old charts reviewed (outside hosp., previous admission, EMS record, old EKG, old radiological studies, urgent care reports/EKG's, long term records)? Report findings @ -No old charts were reviewed Differential Diagnosis (chest pain, altered mental status, abdominal pain women, abdominal pain men, vaginal bleeding, weakness, fever, dyspnea, syncope, headache, dizziness, GI bleed, back pain, seizure, CVA, palpatations, mental health, musculoskeletal)? @ -Differential Chest Pain: Stable Angina, Unstable Angina, STEMI, NSTEMI Aortic Dissection, Pneumothorax, Musculoskeletal, Esophageal Spasm GERD, Cholecystitis, Pancreatitis, Zoster, this is not meant to be an all-inclusive list. EKG interpreted by me (3pts min.). @ -Yes and demonstrates sinus rhythm with a rate of 94. MN interval 157. QRS 112. QTC 399. No acute ST segment elevations or depressions X-rays interpreted by me (1pt min.). @ -Yes and demonstrates no acute process CT interpreted by me (1pt min.). @ -None done U/S interpreted by me (1pt. min.). @ -None done What testing was considered but not performed or refused? (CT, X-rays, U/S, labs)? Why? @ -CT chest however patient has a negative d-dimer What meds were considered but not given or refused? Why? @ -None Did you discuss the management of the patient with other professionals (professionals i.e. [facility], [facility]ER, lab, RT, psych nurse, social media coordinator, bank vault clerk, teacher, equal employment opportunity officer, senior case manager)? Give summary @ -No Was smoking cessation discussed for >3mins.? @ -No Was critical care preformed (if so, how long)? @ -No Were there social determinants of health that impacted care today? How? (Homelessness, low income, unemployed, alcoholism, drug addiction, t ransportation, low edu. Level, literacy, decrease access to med. care, fci, rehab)? @ -No Was there de-escalation of care discussed even if they declined (Discuss DNR or withdrawal of care, Hospice)? DNR status @ -No What co-morbidities impacted this encounter? (DM, HTN, Smoking, COPD, CAD, Cancer, CVA, ARF, Chemo, Hep., AIDS, mental health diagnosis, sleep apnea, morbid obesity)? @ -Ovarian cancer in remission, diabetes mellitus, CVA Was patient admitted / discharged? Hospital course, mention meds given and route, prescriptions, significant lab abnormalities, going to OR and other pertinent info. @ -Arrival patient is placed into room 10. A thorough history and physical exam was performed. She is up to continuous pulse ox and cardiac monitoring. 12-lead EKG was obtained. Laboratory studies are conducted. Troponin negative. D-dimer negative. Patient is willing to stay for a second troponin which is also negative. Chest x-ray demonstrates no acute process. Results are discussed with the patient. Patient is stable for discharge home at this time. Needs to follow up with her primary care doctor in 2-4 days. Needs an echo and Holter monitoring. Return for any new or worsening symptoms. Patient was agreeable to this plan and she was discharged in stable condition Undiagnosed new problem with uncertain prognosis? @ -Yes Drug Therapy requiring intensive monitoring for toxicity (Heparin, Nitro, Insulin, Cardizem)? @ -No Were any procedures done? @ -No Diagnosis/symptom? @ -Acute chest pain Acute, or Chronic, or Acute on Chronic? @ -acute Uncomplicated (without systemic symptoms) or Complicated (systemic symptoms)? @ -complicated Side effects of treatment? @ -No Exacerbation, Progression, or Severe Exacerbation? @ -No Poses a threat to life or bodily function? How? (Chest pain, [place], [place], pneumonia, PE, COPD, DKA, ARF, appy, cholecystitis, CVA, Diverticulitis, Homicidal, Suicidal, threat to staff... and all critical care pts) @ -No Disposition Clinical Impression: Chest pain, Hypomagnesemia, Cephalgia Disposition: HOME SELF-CARE Condition: Stable Instructions (If sedation given, give patient instructions): Chest Pain (ED) Additional Instructions: Please follow-up with your primary care doctor in 2-4 days. I recommend that you take magnesium supplement. You need to have Holter monitoring and echo performed. Return to the emergency room for any new or worsening symptoms Prescriptions: Magnesium Oxide [Mag-Ox] 400 mg PO DAILY #30 tablet Is patient prescribed a controlled substance at d/c from ED?: No Referrals: Jerilyn Knott MD [Primary Care Provider] - 1-2 days Time of Disposition: 19:25
[2023-04-28 16:50] LABS: Basophils % (A) 0 %; Eosinophils # (A) 0.2 k/uL (0-0.7); Eosinophils % (A) 2 %; HCT 45.2 % (34.0-46.0); HGB 15.3 gm/dL (11.4-16.0); Lymphocytes # (A) 2.5 k/uL (1.0-4.8); Lymphocytes % (A) 24 %; MCH 29.9 pg (25.0-35.0); MCHC 33.7 g/dL (31.0-37.0); MCV 88.6 fL (80.0-100.0); Mean Platelet Volume 9.5; Monocytes # (A) 0.5 k/uL (0-1.0); Monocytes % (A) 5 %; Neutrophils # (A) 7.2 k/uL (1.3-7.7); Neutrophils % (A) 68 %; Platelet Count 189 k/uL (150-450); RDW 13.1 % (11.5-15.5); WBC 10.6 k/uL (3.8-10.6)
[2023-04-28 17:00] LABS: ALT 18 U/L (4-34); AST 23 U/L (14-36); African American GFR (CKD) >90 (>60 ml/min/1.73 sqM); Albumin 4.1 g/dL (3.5-5.0); Alkaline Phosphatase 92 U/L (38-126); Anion Gap 10 mmol/L; Blood Urea Nitrogen 14 mg/dL (7-17); Calcium 9.4 mg/dL (8.4-10.2); Carbon Dioxide 22 mmol/L (22-30); Chloride 109 mmol/L (98-107); Glucose 114 mg/dL (74-99); Lipase 82 U/L (23-300); Magnesium 1.5 mg/dL (1.6-2.3); Non-African American GFR(CKD) >90 (>60 ml/min/1.73 sqM); Potassium 4.2 mmol/L (3.5-5.1); Sodium 141 mmol/L (137-145); Total Bilirubin 0.5 mg/dL (0.2-1.3); Total Protein 7.1 g/dL (6.3-8.2)
[2023-04-28 17:19] LABS: Partial Thromboplastin Time 23.2 sec (22.0-30.0); Prothrombin Time 10.5 sec (9.0-12.0)
--- NOTE | 2023-04-28 17:46 | XR ---
EXAMINATION: XR chest 2V: 04/28/2023 5:37 PM CLINICAL INDICATION: Cough/pain TECHNIQUE: Departmental protocol COMPARISON: 06/01/2022 FINDINGS: The overlying soft tissues are prominent. The lungs appear to be clear. The pleural spaces are negative. Right IJ catheter tip superimposed over the mid SVC. EKG leads present. The cardiac silhouette is not enlarged. The remainder of the mediastinal silhouette is unremarkable. The skeletal structures and soft tissues are negative for acute findings. IMPRESSION: No acute radiographic process.
[2023-04-28] MEDS ORDERED: SUMAtriptan succinate 6 MG/0.5 ML VIAL SQ STA (19:30)
[2023-04-28 19:46] VITALS: BP 130/80; PULSE 88; RESP 20
== END 2023-04-28 19:46 | disposition home or self-care (01) ==
LOC: EC 15:24
DX: E83.42 Hypomagnesemia (principal); R51.9 Headache, unspecified; R07.89 Other chest pain; E11.9 Type 2 diabetes mellitus without complications; J45.909 Unspecified asthma, uncomplicated; F41.9 Anxiety disorder, unspecified; K21.9 Gastro-esophageal reflux disease without esophagitis; F17.200 Nicotine dependence, unspecified, uncomplicated; Z79.4 Long term (current) use of insulin; Z79.84 Long term (current) use of oral hypoglycemic drugs; Z79.82 Long term (current) use of aspirin; Z79.899 Other long term (current) drug therapy; Z88.0 Allergy status to penicillin; Z88.6 Allergy status to analgesic agent; Z88.1 Allergy status to other antibiotic agents; Z88.5 Allergy status to narcotic agent; Z88.8 Allergy status to other drugs, medicaments and biological substances; Z88.2 Allergy status to sulfonamides; Z86.73 Personal history of transient ischemic attack (TIA), and cerebral infarction without residual deficits
CPT/HCPCS: 36415; 93005; 85379; 80053; 83690; 83735; 84484; 85025; 85610; 85730; 71046; 99285; 96374; J3030; J2270

== ENCOUNTER 2024-01-13 10:31 | Emergency (ER) | payer MEDICARE, OTHER ==
[2024-01-13 10:51] VITALS: RESP 18
--- NOTE | 2024-01-13 11:05 | ED ---
Extremity Problem HPI - General Chief complaint: Extremity Injury, Lower Stated complaint: Back Pain Time Seen by Provider: 01/13/24 11:00 Source: patient, RN notes reviewed Mode of arrival: wheelchair Limitations: no limitations - History of Present Illness Initial comments: This is a 38-year-old female who presents to the emergency department for left ankle pain and back pain. Patient states that she is not sure what happened, but she did something at work yesterday to injure her left ankle. About three quarters of the way through her shift, she started to notice the increasing pain. She has since barely been able to put pressure on it. Pain does radiate to the bottom of the foot. Additionally, she has had increasing pain to the mid and lower back starting yesterday. She does have problems with her back regardless, but the pain has been increasing. Denies any loss of bowel/bladder control or saddle anesthesia. She takes Percocet, Robaxin, and gabapentin for pain, which has not been effective. MD Complaint: extremity pain - Related Data Home Medications Medication Instructions Recorded Confirmed oxyCODONE-APAP 10-325MG [Percocet 1 tab PO TID PRN 11/16/18 04/28/23 10-325 mg] Atorvastatin [Lipitor] 40 mg PO DAILY 08/08/19 04/28/23 Pantoprazole Sodium [Protonix] 40 mg PO DAILY 08/08/19 04/28/23 Prochlorperazine Maleate 10 mg PO Q8H PRN 08/08/19 04/28/23 Topiramate [Topamax] 50 mg PO TID 08/08/19 04/28/23 lisinopriL [Zestril] 5 mg PO DAILY 08/08/19 04/28/23 INSULIN ASPART (NovoLOG) [NovoLOG See Protocol SQ TID-W/MEALS 09/23/19 04/28/23 (formulary)] metFORMIN HCL [metFORMIN HCL ER] 750 mg PO HS 03/28/20 04/28/23 EPINEPHrine (Auto Inject) [Epipen] 0.3 mg IM ONCE PRN 05/11/21 04/28/23 Famotidine [Pepcid] 20 mg PO HS 05/11/21 04/28/23 methocarbamoL [Robaxin] 750 mg PO BID 08/09/21 07/27/23 Insulin Glargine,Hum.rec.anlog 28 units SQ HS 01/12/22 04/28/23 [Lantus Solostar Pen] Aspirin EC [Ecotrin Low Dose] 81 mg PO DAILY 06/01/22 04/28/23 Dicyclomine HCl 10 mg PO TID 06/01/22 04/28/23 Gabapentin [Neurontin] 300 mg PO TID 06/01/22 04/28/23 Melatonin 5 mg PO HS PRN 06/01/22 04/28/23 Pediatric Multivitamin No.30 2 tab PO MOFR 06/01/22 04/28/23 [Multivitamin Children's Gummies] Pioglitazone [Actos] 30 mg PO DAILY 06/01/22 04/28/23 SUMAtriptan succinate [Imitrex] 50 mg PO BID PRN 06/01/22 04/28/23 Semaglutide [Ozempic] 1 mg SQ CHEEK 06/01/22 04/28/23 Albuterol Nebulized [Ventolin 2.5 mg INHALATION RT-QID PRN 04/28/23 04/28/23 Nebulized] Ascorbic Acid/Elderberry Fruit 2 tab PO MOFR 04/28/23 04/28/23 [Elderberry-Vit C 50-100 mg Chw] Metoprolol Succinate (ER) [Toprol 25 mg PO DAILY 04/28/23 04/28/23 Xl] Previous Rx's Medication Instructions Recorded Magnesium Oxide [Mag-Ox] 400 mg PO DAILY #30 tablet 04/28/23 Celecoxib 200 mg PO BID PRN #30 cap 01/13/24 Allergies Allergy/AdvReac Type Severity Reaction Status Date / Time ampicillin Allergy Unknown Verified 01/13/24 10:38 Childhood baclofen Allergy Anaphylaxis Verified 01/13/24 10:38 ciprofloxacin [From Cipro] Allergy Anaphylaxis Verified 01/13/24 10:38 hydromorphone [From Dilaudid] Allergy Rash/Hives Verified 01/13/24 10:38 promethazine [From Phenergan] Allergy Rash/Hives Verified 01/13/24 10:38 sulfamethoxazole Allergy Rash/Hives Verified 01/13/24 10:38 [From Bactrim] trimethoprim [From Bactrim] Allergy Rash/Hives Verified 01/13/24 10:38 Review of Systems ROS Statement: Those systems with pertinent positive or pertinent negative responses have been documented in the HPI. ROS Other: All systems not noted in ROS Statement are negative. Past Medical History Past Medical History: Asthma, Cancer, CVA/TIA, Diabetes Mellitus, GERD/Reflux Additional Past Medical History / Comment(s): stage 3 uterine cancer 2015, frequent nausea,vomiting & diarrhea for several months, TIA 2015, 2018-no residual effects History of Any Multi-Drug Resistant Organisms: None Reported Past Surgical History: Adenoidectomy, Hysterectomy, Tonsillectomy Additional Past Surgical History / Comment(s): colonoscopy Past Anesthesia/Blood Transfusion Reactions: No Reported Reaction Past Psychological History: Anxiety Smoking Status: Current every day smoker Past Alcohol Use History: None Reported Past Drug Use History: None Reported - Past Family History Mother Family Medical History: Diabetes Mellitus Additional Family Medical History / Comment(s): 2005. Maternal aunt had brain cancer. Father Additional Family Medical History / Comment(s): "Fluid and lungs". 1990. Paternal aunt had breast cancer. Brother(s) Family Medical History: Hyperlipidemia, Hypertension General Exam Limitations: no limitations General appearance: alert, in no apparent distress Head exam: Present: atraumatic, normocephalic, normal inspection Respiratory exam: Present: normal lung sounds bilaterally. Absent: respiratory distress, wheezes, rales, rhonchi, stridor Cardiovascular Exam: Present: regular rate, normal rhythm, normal heart sounds. Absent: systolic murmur, diastolic murmur, rubs, gallop, clicks Neurological exam: Present: alert, oriented X3, CN II-XII intact Psychiatric exam: Present: normal affect, normal mood Skin exam: Present: warm, dry, intact, normal color. Absent: rash Course Vital Signs 01/13/24 01/13/24 01/13/24 10:35 12:26 13:03 Temperature 98.1 F 97.9 F 98.1 F Pulse Rate 74 68 79 Respiratory 18 18 18 Rate Blood Pressure 129/64 128/68 111/69 O2 Sat by Pulse 97 97 97 Oximetry 01/13/24 13:27 Temperature 98.1 F Pulse Rate 72 Respiratory 18 Rate Blood Pressure 116/70 O2 Sat by Pulse 97 Oximetry Medical Decision Making - Medical Decision Making This is a 38 year old female who presents to the emergency department for back pain and left ankle pain. Was pt. sent in by a medical professional or institution? @ -No Did you speak to anyone other than the patient for history? @ -No Did you review nursing and triage notes? @ -Yes, and I agree, it is accurate with regards to the patient's symptoms. Were old charts reviewed? @ -No Differential Diagnosis? @ -Differential Musculoskeletal: Muscular strain, contusion, ligament sprain, fracture, arthritis, septic arthritis, bursitis, cellulitis, muscle spasm, nerve compression, DVT, arterial occlusion, herpes zoster, electrolyte abnormality, tumor.... This is not meant to be in all inclusive list EKG interpreted by me (3pts min.)? @ -Not obtained X-rays interpreted by me (1pt min.)? @ -X-ray of the left ankle, thoracic spine, and lumbar spine obtained. My interpretation identifies no acute fractures. CT interpreted by me (1pt min.)? @ -Not obtained U/S interpreted by me (1pt. min.)? @ -Not obtained What testing was considered but not performed? (CT, X-rays, U/S, labs)? Why? @ -None What meds were considered but not given? Why? @ -None Did you discuss the management of the patient with other professionals? @ -No Did you reconcile home meds? @ -No Was smoking cessation discussed for >3mins.? @ -I discussed smoking cessation for greater than 3 minutes. The risk of smoking were discussed with the patient including but not limited to risks of cancer, stroke, coronary artery disease and COPD. Also discussed with patient were multiple methods of quitting smoking. Lastly we discussed the financial cost of smoking. Was critical care preformed (if so, how long)? @ -No Were there social determinants of health that impacted care today? How? (Homelessness, low income, unemployed, alcoholism, drug addiction, transportation, low edu. Level, literacy, decrease access to med. care, retirement, re hab)? @ -No Was there de-escalation of care discussed even if they declined? (Discuss DNR or withdrawal of care, Hospice)? @ -No What co-morbidities impacted this encounter? (DM, HTN, Smoking, COPD, CAD, Cancer, CVA, Hep., AIDS, mental health diagnosis, sleep apnea, morbid obesity)? @ -Smoking Was patient admitted / discharged? @ -Discharged. X-ray of the left ankle, thoracic spine, and lumbar spine obtained revealing no acute process. Physical examination demonstrates no deformities, swelling, erythema, or warmth. Pain managed in the emergency department. Patient is already on Percocet, Robaxin, and gabapentin at home. Advised that this does limit our options for treatment. Prescription for Ce lebrex provided with dosing instructions reviewed. She was given a Velcro splint and crutches for additional relief. Patient discharged home in stable condition and advised follow-up with her primary care provider. Undiagnosed new problem with uncertain prognosis? @ -None Drug Therapy requiring intensive monitoring for toxicity (Heparin, Nitro, Insulin, Cardizem)? @ -None Were any procedures done? @ -None Diagnosis/symptom? @ -Left ankle pain, back pain Acute, or Chronic, or Acute on Chronic? @ -Acute Uncomplicated (without systemic symptoms) or Complicated (systemic symptoms)? @ -Uncomplicated Side effects of treatment? @ -None Exacerbation, Progression, or Severe Exacerbation] @ -Not applicable Poses a threat to life or bodily function? @ -No Return precautions reviewed in depth, the patient is instructed to return to the emergency department with any new, worsening, or concerning symptoms. Patient verbalized understanding. This case was discussed in detail with the attending ED physician, Dr. Osei. Presentation, findings, and treatment plan discussed in detail as well. - Radiology Data Radiology results: report reviewed, image reviewed Disposition Clinical Impression: Left ankle pain, Back pain Disposition: HOME SELF-CARE Instructions (If sedation given, give patient instructions): Ankle Sprain (ED), Low Back Strain (ED), Acute Low Back Pain (ED) Additional Instructions: Return to the emergency department with any new, worsening, or concerning symptoms. Take the Celebrex with Tylenol as needed for pain relief. If you choose to take the Celebrex, do not take any other anti-inflammatories such as ibuprofen, take one or the other. Use the crutches and ankle splint as needed. Follow up with your primary care provider in 1-2 days. Prescriptions: Celecoxib 200 mg PO BID PRN #30 cap PRN Reason: Pain Is patient prescribed a controlled substance at d/c from ED?: No Referrals: Jerilyn Knott MD [Primary Care Provider] - 1-2 days Time of Disposition: 13:34
[2024-01-13] MEDS: KETOROLAC 15 MG/ML 1 ML VIAL IM STA (11:12)
[2024-01-13] MEDS: MORPHINE SULFATE 4 MG/ML SYRINGE IM STA ×2 (11:13→13:04)
[2024-01-13] MEDS: LIDOCAINE 4% PATCH TOPICAL ONE (11:14)
--- NOTE | 2024-01-13 11:53 | XR ---
EXAMINATION TYPE: XR thoracic spine 2V DATE OF EXAM: 01/13/2024 CLINICAL HISTORY: pain TECHNIQUE: Frontal, lateral, and swimmer's view of thoracic spine are obtained. COMPARISON: None. FINDINGS: Thoracic spine show satisfactory alignment without evidence of acute fracture or dislocatio n. Vertebral body heights are preserved. Disc spaces are well preserved. Visualized ribs are unrem arkable. IMPRESSION: No acute fracture or dislocation is seen in the thoracic spine. ICD 10 NO FRACTURE, INIT IAL EVALUATION
--- NOTE | 2024-01-13 11:53 | XR ---
EXAMINATION TYPE: XR lumbar spine 2 or 3V DATE OF EXAM: 01/13/2024 CLINICAL HISTORY: pain TECHNIQUE: Three views of the lumbar spine are submitted. COMPARISON: None. FINDINGS: There are 5 lumbar type vertebral bodies identified. The lumbar spine shows satisfactory alignment w ithout evidence of acute fracture or dislocation. Vertebral body heights are within normal limits. Disc spaces are within normal limits. The overlying soft tissue appears unremarkable. IMPRESSION: No acute fracture or dislocation is seen in the lumbar spine. ICD 10 NO FRACTURE, INITIAL EVALUATION
--- NOTE | 2024-01-13 13:09 | XR ---
EXAMINATION TYPE: XR ankle complete LT DATE OF EXAM: 01/13/2024 COMPARISON: NONE HISTORY: Pain TECHNIQUE: 3 views of the left ankle are submitted for evaluation. FINDINGS: There is no evidence for fracture or dislocation. Ankle mortise is intact. Soft tissues are within normal limits. IMPRESSION: 1. No evidence for acute fracture.
[2024-01-13 13:38] VITALS: BP 116/70; PULSE 72; TEMP 98.1
== END 2024-01-13 13:49 | disposition home or self-care (01) ==
LOC: EC 10:31
DX: M25.572 Pain in left ankle and joints of left foot (principal); M54.50 Low back pain, unspecified; F17.200 Nicotine dependence, unspecified, uncomplicated; Z88.1 Allergy status to other antibiotic agents; Z88.2 Allergy status to sulfonamides; Z88.5 Allergy status to narcotic agent; Z88.8 Allergy status to other drugs, medicaments and biological substances
CPT/HCPCS: 72070; 72100; 73610; 99284; 96372 ×3; 99406; J2270; J1885

== ENCOUNTER 2024-02-13 10:14 | Emergency (ER) | payer MEDICARE, OTHER ==
--- NOTE | 2024-02-13 10:32 | ED ---
General Adult HPI - General Chief complaint: Arrhythmia/Palpitations Stated complaint: Palpitation Time Seen by Provider: 02/13/24 10:17 Source: patient, EMS, RN notes reviewed Mode of arrival: EMS Limitations: no limitations - History of Present Illness Initial comments: Patient is a 38-year-old female present to the emergency department with concern with palpitations. Patient has had this previously. Patient has history of SVT. EMS noticed heart rate of 190 and gave adenosine 6 followed by 12 with resolution of symptoms. Patient states she never became unresponsive. Patient states her sister told her there was some shaking - Related Data Home Medications Medication Instructions Recorded Confirmed oxyCODONE-APAP 10-325MG [Percocet 1 tab PO TID PRN 11/16/18 02/13/24 10-325 mg] Atorvastatin [Lipitor] 40 mg PO DAILY 08/08/19 02/13/24 Pantoprazole Sodium [Protonix] 40 mg PO DAILY 08/08/19 02/13/24 Prochlorperazine Maleate 10 mg PO Q8H PRN 08/08/19 02/13/24 Topiramate [Topamax] 50 mg PO BID 08/08/19 02/13/24 lisinopriL [Zestril] 5 mg PO DAILY 08/08/19 02/13/24 metFORMIN HCL [metFORMIN HCL ER] 750 mg PO HS 03/28/20 02/13/24 EPINEPHrine (Auto Inject) [Epipen] 0.3 mg IM ONCE PRN 05/11/21 02/13/24 Famotidine [Pepcid] 20 mg PO HS PRN 05/11/21 02/13/24 methocarbamoL [Robaxin] 750 mg PO BID 05/11/21 02/13/24 Aspirin EC [Ecotrin Low Dose] 81 mg PO DAILY 06/01/22 02/13/24 Dicyclomine HCl 10 mg PO TID 06/01/22 02/13/24 Gabapentin [Neurontin] 300 mg PO TID 06/01/22 02/13/24 Pioglitazone [Actos] 30 mg PO DAILY 06/01/22 02/13/24 SUMAtriptan succinate [Imitrex] 50 mg PO BID PRN 06/01/22 02/13/24 Albuterol Nebulized [Ventolin 2.5 mg INHALATION RT-QID PRN 04/28/23 02/13/24 Nebulized] Metoprolol Succinate (ER) [Toprol 25 mg PO DAILY 04/28/23 02/13/24 Xl] Fluticasone Propion/Salmeterol 1 puff INHALATION RT-BID 02/13/24 02/13/24 [Fluticasone-Salmeterol 100-50] Tirzepatide [Mounjaro] 2.5 mg SQ Q7D 02/13/24 02/13/24 Allergies Allergy/AdvReac Type Severity Reaction Status Date / Time ampicillin Allergy Unknown Verified 02/13/24 11:28 Childhood baclofen Allergy Anaphylaxis Verified 02/13/24 11:28 /Rash ciprofloxacin [From Cipro] Allergy Anaphylaxis Verified 02/13/24 11:28 hydromorphone [From Dilaudid] Allergy Rash/Hives Verified 02/13/24 11:28 ketorolac [From Toradol] Allergy Rash/Hives Verified 02/13/24 11:28 promethazine [From Phenergan] Allergy Rash/Hives Verified 02/13/24 11:28 sulfamethoxazole Allergy Rash/Hives Verified 02/13/24 11:28 [From Bactrim] trimethoprim [From Bactrim] Allergy Rash/Hives Verified 02/13/24 11:28 Review of Systems ROS Statement: Those systems with pertinent positive or pertinent negative responses have been documented in the HPI. ROS Other: All systems not noted in ROS Statement are negative. Constitutional: Denies: fever Eyes: Denies: eye pain ENT: Denies: ear pain Respiratory: Denies: cough, dyspnea Cardiovascular: Reports: as per HPI, palpitations Gastrointestinal: Denies: abdominal pain Neurological: Denies: headache, weakness, confusion Past Medical History Past Medical History: Asthma, Cancer, CVA/TIA, Diabetes Mellitus, GERD/Reflux Additional Past Medical History / Comment(s): stage 3 uterine cancer 2015, frequent nausea,vomiting & diarrhea for several months, TIA 2015, 2018-no residual effects, SVT History of Any Multi-Drug Resistant Organisms: None Reported Past Surgical History: Adenoidectomy, Hysterectomy, Tonsillectomy Additional Past Surgical History / Comment(s): colonoscopy Past Anesthesia/Blood Transfusion Reactions: No Reported Reaction Past Psychological History: Anxiety Smoking Status: Current every day smoker Past Alcohol Use History: None Reported Past Drug Use History: None Reported - Past Family History Mother Family Medical History: Diabetes Mellitus Additional Family Medical History / Comment(s): 2005. Maternal aunt had brain cancer. Father Additional Family Medical History / Comment(s): "Fluid and lungs". 1990. Paternal aunt had breast cancer. Brother(s) Family Medical History: Hyperlipidemia, Hypertension General Exam Limitations: no limitations General appearance: alert, in no apparent distress Head exam: Present: normocephalic Eye exam: Present: normal appearance, PERRL, EOMI Neck exam: Present: normal inspection Respiratory exam: Present: normal lung sounds bilaterally Cardiovascular Exam: Present: regular rate, normal rhythm GI/Abdominal exam: Present: soft. Absent: tenderness Back exam: Present: normal inspection Neurological exam: Present: alert, oriented X3, CN II-XII intact. Absent: motor sensory deficit Expanded Neurological exam: Present: protecting the airway Speech: Present: fluid speech Cranial nerves: EOM's Intact: Normal Motor strength exam: RUE: 5, LUE: 5, RLE: 5, LLE: 5 Eye Response: (4) open spontaneously Motor Response: (6) obeys commands Verbal Response: (5) oriented Psychiatric exam: Present: normal affect, normal mood Skin exam: Present: normal color Course Vital Signs 02/13/24 10:16 Temperature 97.5 F L Pulse Rate 104 H Respiratory 20 Rate Blood Pressure 115/77 O2 Sat by Pulse 98 Oximetry EKG Findings - EKG Results: EKG: interpreted by ERMD, sinus rhythm, normal axis, normal QRS, normal ST/T EKG shows: tachycardia Medical Decision Making - Medical Decision Making Was pt. sent in by a medical professional or institution (, PA, SPEECH AND LANGUAGE ASSISTANT, urgent care, hospital, or [facility]...) When possible be specific @ -No Did you speak to anyone other than the patient for history (EMS, parent, family, police, friend...)? What history was obtained from this source @ -EMS helps provide history including medications given Did you review nursing and triage notes (agree or disagree)? Why? @ -I reviewed and agree with nursing and triage notes Were old charts reviewed (outside hosp., previous admission, EMS record, old EKG, old radiological studies, urgent care reports/EKG's, [facility] records)? Report findings @ -No old charts were reviewed Differential Diagnosis (chest pain, altered mental status, abdominal pain women, abdominal pain men, vaginal bleeding, weakness, fever, dyspnea, syncope, headache, dizziness, GI bleed, back pain, seizure, CVA, palpatations, mental health, musculoskeletal)? @ -MDM differential palpitation EKG interpreted by me (3pts min.). @ -As above X-rays interpreted by me (1pt min.). @ -Chest x-ray shows no acute process CT interpreted by me (1pt min.). @ -CT brain shows no acute process U/S interpreted by me (1pt. min.). @ -None done What testing was considered but not performed or refused? (CT, X-rays, U/S, labs)? Why? @ -None What meds were considered but not given or refused? Why? @ -None Did you discuss the management of the patient with other professionals (professionals i.e. , PA, SPEECH AND LANGUAGE ASSISTANT, lab, RT, psych nurse, adoption social worker, scroll assembler, teacher, logistics supply officer, case packer)? Give summary @ -No Was smoking cessation discussed for >3mins.? @ -No Was critical care preformed (if so, how long)? @ -No Were there social determinants of health that impacted care today? How? (Homelessness, low income, unemployed, alcoholism, drug addiction, transportation, low edu. Level, literacy, decrease access to med. care, penitentiary, rehab)? @ -No Was there de-escalation of care discussed even if they declined (Discuss DNR or withdrawal of care, Hospice)? DNR status @ -No What co-morbidities impacted this encounter? (DM, HTN, Smoking, COPD, CAD, Cancer, CVA, ARF, Chemo, Hep., AIDS, mental health diagnosis, sleep apnea, morbid obesity)? @ -None Was patient admitted / discharged? Hospital course, mention meds given and route, prescriptions, significant lab abnormalities, going to OR and other pertinent info. @ -Heart rate remained stable. Patient reevaluated and updated. Patient had SVT resolved after treatment by EMS. I did also discuss with sister who is familiar with seizures and states patient did not have a seizure. She states there is only some shaking of the right arm and lasted a couple seconds. Patient is updated on results and need for follow-up Undiagnosed new problem with uncertain prognosis? @ -No Drug Therapy requiring intensive monitoring for toxicity (Heparin, Nitro, Insulin, Cardizem)? @ -No Were any procedures done? @ -No Diagnosis/symptom? @ -SVT Acute, or Chronic, or Acute on Chronic? @ -Acute Uncomplicated (without systemic symptoms) or Complicated (systemic symptoms)? @ -Default Side effects of treatment? @ -No Exacerbation, Progression, or Severe Exacerbation? @ -No Poses a threat to life or bodily function? How? (Chest pain, [place], [place], pneumonia, PE, COPD, DKA, ARF, appy, cholecystitis, CVA, Diverticulitis, Homicidal, Suicidal, threat to staff... and all critical care pts) @ -No - Lab Data Result diagrams: 02/13/24 10:32 02/13/24 10:32 Lab Results 02/13/24 02/13/24 02/13/24 Range/Units 10:32 10:32 10:32 WBC 8.3 (3.8-10.6) k/uL RBC 4.85 (3.80-5.40) m/uL Hgb 14.2 (11.4-16.0) gm/dL Hct 43.5 (34.0-46.0) % MCV 89.6 (80.0-100.0) fL MCH 29.3 (25.0-35.0) pg MCHC 32.7 (31.0-37.0) g/dL RDW 13.0 (11.5-15.5) % Plt Count 180 (150-450) k/uL MPV 10.0 Neutrophils % 71 % Lymphocytes % 18 % Monocytes % 7 % Eosinophils % 2 % Basophils % 1 % Neutrophils # 5.9 (1.3-7.7) k/uL Lymphocytes # 1.5 (1.0-4.8) k/uL Monocytes # 0.5 (0-1.0) k/uL Eosinophils # 0.2 (0-0.7) k/uL Basophils # 0.0 (0-0.2) k/uL PT 11.0 (10.0-12.5) sec INR 1.0 (<1.2) APTT 24.4 (22.0-30.0) sec Sodium 140 (137-145) mmol/L Potassium 3.8 (3.5-5.1) mmol/L Chloride 111 H (98-107) mmol/L Carbon Dioxide 22 (22-30) mmol/L Anion Gap 7 mmol/L BUN 17 (7-17) mg/dL Creatinine 0.74 (0.52-1.04) mg/dL Est GFR (CKD-EPI)AfAm >90 (>60 ml/min/1.73 sqM) Est GFR (CKD-EPI)NonAf >90 (>60 ml/min/1.73 sqM) Glucose 240 H (74-99) mg/dL POC Glucose (mg/dL) (70-110) mg/dL POC Glu Cleat Thrower ID Calcium 8.7 (8.4-10.2) mg/dL Magnesium 1.4 L (1.6-2.3) mg/dL Total Bilirubin 0.4 (0.2-1.3) mg/dL AST 23 (14-36) U/L ALT 24 (4-34) U/L Alkaline Phosphatase 94 (38-126) U/L Troponin I (0.000-0.034) ng/mL Total Protein 6.1 L (6.3-8.2) g/dL Albumin 3.6 (3.5-5.0) g/dL TSH 3.390 (0.465-4.680) mIU/L Free T4 1.08 (0.78-2.19) ng/dL 02/13/24 02/13/24 Range/Units 10:32 10:32 WBC (3.8-10.6) k/uL RBC (3.80-5.40) m/uL Hgb (11.4-16.0) gm/dL Hct (34.0-46.0) % MCV (80.0-100.0) fL MCH (25.0-35.0) pg MCHC (31.0-37.0) g/dL RDW (11.5-15.5) % Plt Count (150-450) k/uL MPV Neutrophils % % Lymphocytes % % Monocytes % % Eosinophils % % Basophils % % Neutrophils # (1.3-7.7) k/uL Lymphocytes # (1.0-4.8) k/uL Monocytes # (0-1.0) k/uL Eosinophils # (0-0.7) k/uL Basophils # (0-0.2) k/uL PT (10.0-12.5) sec INR (<1.2) APTT (22.0-30.0) sec Sodium (137-145) mmol/L Potassium (3.5-5.1) mmol/L Chloride (98-107) mmol/L Carbon Dioxide (22-30) mmol/L Anion Gap mmol/L BUN (7-17) mg/dL Creatinine (0.52-1.04) mg/dL Est GFR (CKD-EPI)AfAm (>60 ml/min/1.73 sqM) Est GFR (CKD-EPI)NonAf (>60 ml/min/1.73 sqM) Glucose (74-99) mg/dL POC Glucose (mg/dL) 236 H (70-110) mg/dL POC Glu Cleat Thrower ID Cristiane Nails Calcium (8.4-10.2) mg/dL Magnesium (1.6-2.3) mg/dL Total Bilirubin (0.2-1.3) mg/dL AST (14-36) U/L ALT (4-34) U/L Alkaline Phosphatase (38-126) U/L Troponin I <0.012 (0.000-0.034) ng/mL Total Protein (6.3-8.2) g/dL Albumin (3.5-5.0) g/dL TSH (0.465-4.680) mIU/L Free T4 (0.78-2.19) ng/dL Disposition Clinical Impression: Supraventricular tachycardia Disposition: HOME SELF-CARE Condition: Stable Instructions (If sedation given, give patient instructions): Supraventricular Tachycardia (ED) Additional Instructions: Please do follow-up with your primary care physician and heart doctor in the next couple of days for recheck. Return for increased heart rate, chest pain or difficulty breathing, shaking or seizures, worsening or changing symptoms or any other concerns. Is patient prescribed a controlled substance at d/c from ED?: No Referrals: Jerilyn Knott MD [Primary Care Provider] - 1-2 days Rodriguez Kumar MD [STAFF PHYSICIAN] - 1-2 days Time of Disposition: 12:29
[2024-02-13 10:33] LABS: Glucose,Whole Blood 236 mg/dL (70-110)
--- NOTE | 2024-02-13 10:48 | XR ---
EXAMINATION TYPE: XR chest 2V DATE OF EXAM: 02/13/2024 COMPARISON: NONE HISTORY: dysrhythmia TECHNIQUE: Frontal and lateral views of the chest are obtained. FINDINGS: There is no focal air space opacity. Central venous line unchanged in position. No evidence for pneumothorax. No pleural effusion. The cardiac silhouette size is within normal limits. The osseous structures are grossly intact. IMPRESSION: 1. No acute cardiopulmonary process.
[2024-02-13 10:57] LABS: Basophils % (A) 1 %; Eosinophils # (A) 0.2 k/uL (0-0.7); Eosinophils % (A) 2 %; HCT 43.5 % (34.0-46.0); HGB 14.2 gm/dL (11.4-16.0); Lymphocytes # (A) 1.5 k/uL (1.0-4.8); Lymphocytes % (A) 18 %; MCH 29.3 pg (25.0-35.0); MCHC 32.7 g/dL (31.0-37.0); MCV 89.6 fL (80.0-100.0); Monocytes # (A) 0.5 k/uL (0-1.0); Monocytes % (A) 7 %; Neutrophils # (A) 5.9 k/uL (1.3-7.7); Neutrophils % (A) 71 %; Platelet Count 180 k/uL (150-450); RBC 4.85 m/uL (3.80-5.40); WBC 8.3 k/uL (3.8-10.6)
--- NOTE | 2024-02-13 11:12 | CT ---
EXAMINATION TYPE: CT brain wo con DATE OF EXAM: 02/13/2024 COMPARISON: None HISTORY: Convulsions, no hx of seizures. CT DLP: 1095.[address] of the brain was performed. The ventricles, basal cisterns and sulci overlying the cerebral convexities demonstrate a normal appe arance. There is no evidence for intracranial hemorrhage or sulcal effacement. No mass effects are seen. Osseous calvarium is intact. If symptoms persist consider MRI as clinically warranted. IMPRESSION: 1. No acute intracranial process is seen at this time.
[2024-02-13 11:25] LABS: Partial Thromboplastin Time 24.4 sec (22.0-30.0)
[2024-02-13 11:31] LABS: ALT 24 U/L (4-34); AST 23 U/L (14-36); African American GFR (CKD) >90 (>60 ml/min/1.73 sqM); Albumin 3.6 g/dL (3.5-5.0); Alkaline Phosphatase 94 U/L (38-126); Anion Gap 7 mmol/L; Blood Urea Nitrogen 17 mg/dL (7-17); Calcium 8.7 mg/dL (8.4-10.2); Carbon Dioxide 22 mmol/L (22-30); Chloride 111 mmol/L (98-107); Glucose 240 mg/dL (74-99); Magnesium 1.4 mg/dL (1.6-2.3); Non-African American GFR(CKD) >90 (>60 ml/min/1.73 sqM); Potassium 3.8 mmol/L (3.5-5.1); Sodium 140 mmol/L (137-145); Total Bilirubin 0.4 mg/dL (0.2-1.3); Total Protein 6.1 g/dL (6.3-8.2)
[2024-02-13 11:46] LABS: T4, Free (Free Thyroxine) 1.08 ng/dL (0.78-2.19)
[2024-02-13] MEDS: ACETAMINOPHEN TAB 500 MG TAB PO STA (12:30)
[2024-02-13] MEDS: MAGNESIUM OXIDE 400 MG TAB PO STA (12:30)
[2024-02-13 12:43] VITALS: BP 102/76; PULSE 98; RESP 18
[2024-02-13 13:29] VITALS: TEMP 97.6
== END 2024-02-13 13:00 | disposition home or self-care (01) ==
LOC: EC 10:14
DX: I47.10 Supraventricular tachycardia, unspecified (principal); F17.200 Nicotine dependence, unspecified, uncomplicated; Z88.1 Allergy status to other antibiotic agents; Z88.2 Allergy status to sulfonamides; Z88.5 Allergy status to narcotic agent; Z88.8 Allergy status to other drugs, medicaments and biological substances; Z86.73 Personal history of transient ischemic attack (TIA), and cerebral infarction without residual deficits
CPT/HCPCS: 36415; 70450; 71046; 80053; 83735; 84439; 84443; 84481; 84484; 85025; 85610; 85730; 93005; 99285

== ENCOUNTER 2024-04-25 14:23 | Emergency (ER) | payer MEDICARE, OTHER ==
--- NOTE | 2024-04-25 16:41 | ED ---
Dizziness HPI - General Chief Complaint: Syncope Stated Complaint: syncope Time Seen by Provider: 04/25/24 16:37 Source: patient, RN notes reviewed Mode of arrival: wheelchair Limitations: no limitations - History of Present Illness Initial Comments: 38-year-old female with history of SVT, DM type II, CVA, hyperlipidemia, and ovarian cancer in remission presenting to the ER with chief complaint of syncope. States earlier today she was smoking a cigarette on the back porch and began to feel lightheaded. She reports her "legs felt like jelly" and gave out and she believes she fell onto her right hip and hit her head on the cement. She states she came to after about 30 seconds and felt back to normal. She states over the next few hours she started to feel lightheaded again and decided to seek evaluation in the ER. States she is currently on a baby aspirin daily due to her "mini stroke" several years ago. She has these "dizzy spells" from time to time. She is also reporting right hip pain from the fall. States she has pain with weightbearing on the right side. Denies any chest pain, palpitations, shortness of breath, leg swelling, abdominal pain around the time of syncopal episode or currently. - Related Data Home Medications Medication Instructions Recorded Confirmed oxyCODONE-APAP 10-325MG [Percocet 1 tab PO TID PRN 11/16/18 02/13/24 10-325 mg] Atorvastatin [Lipitor] 40 mg PO DAILY 08/08/19 02/13/24 Pantoprazole Sodium [Protonix] 40 mg PO DAILY 08/08/19 02/13/24 Prochlorperazine Maleate 10 mg PO Q8H PRN 08/08/19 02/13/24 Topiramate [Topamax] 50 mg PO BID 08/08/19 02/13/24 lisinopriL [Zestril] 5 mg PO DAILY 08/08/19 02/13/24 metFORMIN HCL [metFORMIN HCL ER] 750 mg PO HS 03/28/20 02/13/24 EPINEPHrine (Auto Inject) [Epipen] 0.3 mg IM ONCE PRN 05/11/21 02/13/24 Famotidine [Pepcid] 20 mg PO HS PRN 05/11/21 02/13/24 methocarbamoL [Robaxin] 750 mg PO BID 05/11/21 02/13/24 Aspirin EC [Ecotrin Low Dose] 81 mg PO DAILY 06/01/22 02/13/24 Dicyclomine HCl 10 mg PO TID 06/01/22 02/13/24 Gabapentin [Neurontin] 300 mg PO TID 06/01/22 02/13/24 Pioglitazone [Actos] 30 mg PO DAILY 06/01/22 02/13/24 SUMAtriptan succinate [Imitrex] 50 mg PO BID PRN 06/01/22 02/13/24 Albuterol Nebulized [Ventolin 2.5 mg INHALATION RT-QID PRN 04/28/23 02/13/24 Nebulized] Metoprolol Succinate (ER) [Toprol 25 mg PO DAILY 04/28/23 02/13/24 Xl] Fluticasone Propion/Salmeterol 1 puff INHALATION RT-BID 02/13/24 02/13/24 [Fluticasone-Salmeterol 100-50] Tirzepatide [Mounjaro] 2.5 mg SQ Q7D 02/13/24 02/13/24 Allergies Allergy/AdvReac Type Severity Reaction Status Date / Time ampicillin Allergy Unknown Verified 02/13/24 11:28 Childhood baclofen Allergy Anaphylaxis Verified 02/13/24 11:28 /Rash ciprofloxacin [From Cipro] Allergy Anaphylaxis Verified 02/13/24 11:28 hydromorphone [From Dilaudid] Allergy Rash/Hives Verified 02/13/24 11:28 ketorolac [From Toradol] Allergy Rash/Hives Verified 02/13/24 11:28 promethazine [From Phenergan] Allergy Rash/Hives Verified 02/13/24 11:28 sulfamethoxazole Allergy Rash/Hives Verified 02/13/24 11:28 [From Bactrim] trimethoprim [From Bactrim] Allergy Rash/Hives Verified 02/13/24 11:28 Review of Systems ROS Statement: Those systems with pertinent positive or pertinent negative responses have been documented in the HPI. ROS Other: All systems not noted in ROS Statement are negative. Past Medical History Past Medical History: Asthma, Cancer, CVA/TIA, Diabetes Mellitus, GERD/Reflux Additional Past Medical History / Comment(s): stage 3 uterine cancer 2015, frequent nausea,vomiting & diarrhea for several months, TIA 2015, 2018-no residual effects History of Any Multi-Drug Resistant Organisms: None Reported Past Surgical History: Adenoidectomy, Hysterectomy, Tonsillectomy Additional Past Surgical History / Comment(s): colonoscopy Past Anesthesia/Blood Transfusion Reactions: No Reported Reaction Past Psychological History: Anxiety Smoking Status: Current every day smoker Past Alcohol Use History: None Reported Past Drug Use History: None Reported - Past Family History Mother Family Medical History: Diabetes Mellitus Additional Family Medical History / Comment(s): 2005. Maternal aunt had brain cancer. Father Additional Family Medical History / Comment(s): "Fluid and lungs". 1990. Paternal aunt had breast cancer. Brother(s) Family Medical History: Hyperlipidemia, Hypertension General Exam Limitations: no limitations General appearance: alert, in no apparent distress Head exam: Present: atraumatic, normocephalic, normal inspection Eye exam: Present: normal appearance, PERRL, EOMI. Absent: scleral icterus, conjunctival injection, periorbital swelling ENT exam: Present: normal exam, mucous membranes moist Neck exam: Present: normal inspection. Absent: tenderness, meningismus, lymphadenopathy Respiratory exam: Present: normal lung sounds bilaterally. Absent: respiratory distress, wheezes, rales, rhonchi, stridor Cardiovascular Exam: Present: regular rate, normal rhythm, normal heart sounds. Absent: systolic murmur, diastolic murmur, rubs, gallop, clicks GI/Abdominal exam: Present: soft, normal bowel sounds. Absent: distended, tenderness, guarding, rebound, rigid Extremities exam: Present: normal inspection, full ROM, normal capillary refill. Absent: tenderness, pedal edema, joint swelling, calf tenderness Back exam: Present: normal inspection Neurological exam: Present: alert, oriented X3, CN II-XII intact Psychiatric exam: Present: normal affect, normal mood Skin exam: Present: warm, dry, intact, normal color. Absent: rash Course Vital Signs 04/25/24 04/25/24 04/25/24 14:51 17:45 18:07 Temperature 98.6 F 98.2 F 98.0 F Pulse Rate 85 74 91 Respiratory 18 17 17 Rate Blood Pressure 118/85 125/72 115/72 O2 Sat by Pulse 99 100 97 Oximetry 04/25/24 19:44 Temperature 97.9 F Pulse Rate 86 Respiratory 18 Rate Blood Pressure 132/73 O2 Sat by Pulse 96 Oximetry EKG Findings - EKG Results: EKG: interpreted by SANTIAGOD (EKG reveals normal sinus rhythm with no ST changes. Ventricular rate 66 bpm, AZ interval 138, QRS duration 101, QT/QTc 382/396) Medical Decision Making - Medical Decision Making Was pt. sent in by a medical professional or institution (, PA, REINSURANCE ACCOUNTANT, urgent care, hospital, or long term...) When possible be specific @ -No Did you speak to anyone other than the patient for history (EMS, parent, family, police, friend...)? What history was obtained from this source @ -No Did you review nursing and triage notes (agree or disagree)? Why? @ -I reviewed and agree with nursing and triage notes Were old charts reviewed (outside hosp., previous admission, EMS record, old EKG, old radiological studies, urgent care reports/EKG's, long term records)? Report findings @ -No old charts were reviewed Differential Diagnosis (chest pain, altered mental status, abdominal pain women, abdominal pain men, vaginal bleeding, weakness, fever, dyspnea, syncope, headache, dizziness, GI bleed, back pain, seizure, CVA, palpatations, mental health, musculoskeletal)? @ -Differential Syncope: Valvular disease, hypertrophic cardiomyopathy, pulmonary embolism, tamponade, tachycardia, bradycardia, WA, hypovolemia, hemorrhage, dissection, anemia, intracranial hemorrhage, seizure, hypoglycemia, carbon monoxide poisoning, this is not meant to be an all-inclusive list. EKG interpreted by me (3pts min.). @ -As above X-rays interpreted by me (1pt min.). @ -Chest x-ray reveals no acute process CT interpreted by me (1pt min.). @ -None done U/S interpreted by me (1pt. min.). @ -None done What testing was considered but not performed or refused? (CT, X-rays, U/S, labs)? Why? @ -None What meds were considered but not given or refused? Why? @ -None Did you discuss the management of the patient with other professionals (professionals i.e. , NELSON, REINSURANCE ACCOUNTANT, lab, RT, psych nurse, social media designer, academic dean, teacher, escrow officer, director case management)? Give summary @ -No Was smoking cessation discussed for >3mins.? @ -No Was critical care preformed (if so, how long)? @ -No Were there social determinants of health that impacted care today? How? (Homelessness, low income, unemployed, alcoholism, drug addiction, transportation, low edu. Level, literacy, decrease access to med. care, fdc, rehab)? @ -No Was there de-escalation of care discussed even if they declined (Discuss DNR or withdrawal of care, Hospice)? DNR status @ -No What co-morbidities impacted this encounter? (DM, HTN, Smoking, COPD, CAD, Cancer, CVA, ARF, Chemo, Hep., AIDS, mental health diagnosis, sleep apnea, morbid obesity)? @ -None Was patient admitted / discharged? Hospital course, mention meds given and route, prescriptions, significant lab abnormalities, going to OR and other pertinent info. @ -Patient was discharged. Patient was seen and evaluated for syncopal episode this morning. Patient believes she hit her head and is having right hip pain s kimber the fall. She is able to ambulate. Denies alarm symptoms such as chest pain, shortness of breath, palpitations. Vital signs are within normal limits. She is neurovascularly intact. Neuro examination is unremarkable. Patient is given IV morphine for pain. Lab work including CBC, CMP, troponin, D-dimer is remarkable for glucose of 270, otherwise unremarkable. Patient states she takes once weekly injection of insulin and takes metformin for her diabetes, but states it is well-controlled. Urine is negative. EKG reveals normal sinus rhythm with no ST changes. CT of head is negative acute process. X-ray of right hip is negative for acute process. Discussed that there are no signs of emergent etiology causing syncopal episode today. As patient is currently asymptomatic, I believe is reasonable for patient to be discharged with close follow-up with PCP and cardiology. Patient is agreeable to plan. Strict return parameters discussed and patient shows understanding and agrees. Case was discussed with my ED attending Dr. Gonzalez. Patient discharged stable condition. Undiagnosed new problem with uncertain prognosis? @ -No Drug Therapy requiring intensive monitoring for toxicity (Heparin, Nitro, Insulin, Cardizem)? @ -No Were any procedures done? @ -No Diagnosis/symptom? @ -Syncope, right hip strain Acute, or Chronic, or Acute on Chronic? @ -Acute Uncomplicated (without systemic symptoms) or Complicated (systemic symptoms)? @ -Uncomplicated Side effects of treatment? @ -No Exacerbation, Progression, or Severe Exacerbation? @ -No Poses a threat to life or bodily function? How? (Chest pain, USA, WA, pneumonia, PE, COPD, DKA, ARF, appy, cholecystitis, CVA, Diverticulitis, Homicidal, Suicidal, threat to staff... and all critical care pts) @ -Unlikely at this time - Lab Data Result diagrams: 04/25/24 16:59 04/25/24 16:59 Lab Results 04/25/24 04/25/24 04/25/24 Range/Units 16:59 16:59 16:59 WBC 9.2 (3.8-10.6) k/uL RBC 4.71 (3.80-5.40) m/uL Hgb 13.7 (11.4-16.0) gm/dL Hct 41.9 (34.0-46.0) % MCV 89.0 (80.0-100.0) fL MCH 29.1 (25.0-35.0) pg MCHC 32.7 (31.0-37.0) g/dL RDW 13.2 (11.5-15.5) % Plt Count 225 (150-450) k/uL MPV 8.7 Neutrophils % 63 % Lymphocytes % 28 % Monocytes % 5 % Eosinophils % 3 % Basophils % 1 % Neutrophils # 5.8 (1.3-7.7) k/uL Lymphocytes # 2.5 (1.0-4.8) k/uL Monocytes # 0.5 (0-1.0) k/uL Eosinophils # 0.3 (0-0.7) k/uL Basophils # 0.1 (0-0.2) k/uL PT 10.7 (10.0-12.5) sec INR 1.0 (<1.2) APTT 23.0 (22.0-30.0) sec D-Dimer 0.42 (<0.60) mg/L FEU Sodium 137 (137-145) mmol/L Potassium 3.9 (3.5-5.1) mmol/L Chloride 106 (98-107) mmol/L Carbon Dioxide 23 (22-30) mmol/L Anion Gap 8 mmol/L BUN 21 H (7-17) mg/dL Creatinine 0.60 (0.52-1.04) mg/dL Est GFR (CKD-EPI)AfAm >90 (>60 ml/min/1.73 sqM) Est GFR (CKD-EPI)NonAf >90 (>60 ml/min/1.73 sqM) Glucose 270 H (74-99) mg/dL Calcium 9.2 (8.4-10.2) mg/dL Total Bilirubin 0.5 (0.2-1.3) mg/dL AST 23 (14-36) U/L ALT 21 (4-34) U/L Alkaline Phosphatase 99 (38-126) U/L Troponin I (0.000-0.034) ng/mL Total Protein 6.2 L (6.3-8.2) g/dL Albumin 3.9 (3.5-5.0) g/dL Urine HCG, Qual (Not Detectd) 04/25/24 04/25/24 Range/Units 16:59 16:59 WBC (3.8-10.6) k/uL RBC (3.80-5.40) m/uL Hgb (11.4-16.0) gm/dL Hct (34.0-46.0) % MCV (80.0-100.0) fL MCH (25.0-35.0) pg MCHC (31.0-37.0) g/dL RDW (11.5-15.5) % Plt Count (150-450) k/uL MPV Neutrophils % % Lymphocytes % % Monocytes % % Eosinophils % % Basophils % % Neutrophils # (1.3-7.7) k/uL Lymphocytes # (1.0-4.8) k/uL Monocytes # (0-1.0) k/uL Eosinophils # (0-0.7) k/uL Basophils # (0-0.2) k/uL PT (10.0-12.5) sec INR (<1.2) APTT (22.0-30.0) sec D-Dimer (<0.60) mg/L FEU Sodium (137-145) mmol/L Potassium (3.5-5.1) mmol/L Chloride (98-107) mmol/L Carbon Dioxide (22-30) mmol/L Anion Gap mmol/L BUN (7-17) mg/dL Creatinine (0.52-1.04) mg/dL Est GFR (CKD-EPI)AfAm (>60 ml/min/1.73 sqM) Est GFR (CKD-EPI)NonAf (>60 ml/min/1.73 sqM) Glucose (74-99) mg/dL Calcium (8.4-10.2) mg/dL Total Bilirubin (0.2-1.3) mg/dL AST (14-36) U/L ALT (4-34) U/L Alkaline Phosphatase (38-126) U/L Troponin I <0.012 (0.000-0.034) ng/mL Total Protein (6.3-8.2) g/dL Albumin (3.5-5.0) g/dL Urine HCG, Qual Not Detected (Not Detectd) Disposition Clinical Impression: Syncope, Strain of right hip Disposition: HOME SELF-CARE Condition: Stable Instructions (If sedation given, give patient instructions): Syncope (ED) Additional Instructions: Please follow-up with Dr. Kumar as discussed. Please return to the Emergency Department if symptoms worsen or any other concerns. Is patient prescribed a controlled substance at d/c from ED?: No Referrals: Jerilyn Knott MD [Primary Care Provider] - 1-2 days Time of Disposition: 19:18
--- NOTE | 2024-04-25 17:24 | XR ---
EXAMINATION TYPE: XR chest 2V DATE OF EXAM: 04/25/2024 5:07 PM CLINICAL INDICATION:Female, 38 years old with history of syncopal episode, head trauma; [facility] COMPARISON: Chest radiographs from 02/13/2024 TECHNIQUE: XR chest 2V Frontal view of the chest. FINDINGS: Lungs/Pleura: There is no evidence of pleural effusion, focal consolidation, or pneumothorax. Pulmonary vascularity: Unremarkable. Heart/mediastinum: Cardiomediastinal silhouette is unremarkable. Musculoskeletal: No acute osseous pathology. Other findings: None Lines/Tubes: [id number] projecting over the right hemithorax with distal tip at the cavoatrial junction. IMPRESSION: No acute cardiopulmonary disease/process.
--- NOTE | 2024-04-25 17:31 | XR ---
EXAMINATION TYPE: XR Hip Complete RT DATE OF EXAM: 04/25/2024 5:10 PM CLINICAL INDICATION:Female, 38 years old with history of right hip injury; [facility] COMPARISON: None. TECHNIQUE: XR Hip Complete RT; hip was examined in the frontal and lateral projections FINDINGS: No evidence for acute process, joint dislocation or significant soft tissue swelling. IMPRESSION: No acute process.
[2024-04-25 17:35] LABS: Basophils # (A) 0.1 k/uL (0-0.2); Basophils % (A) 1 %; Eosinophils # (A) 0.3 k/uL (0-0.7); Eosinophils % (A) 3 %; HCT 41.9 % (34.0-46.0); HGB 13.7 gm/dL (11.4-16.0); Lymphocytes # (A) 2.5 k/uL (1.0-4.8); Lymphocytes % (A) 28 %; MCH 29.1 pg (25.0-35.0); MCHC 32.7 g/dL (31.0-37.0); Mean Platelet Volume 8.7; Monocytes # (A) 0.5 k/uL (0-1.0); Monocytes % (A) 5 %; Neutrophils # (A) 5.8 k/uL (1.3-7.7); Neutrophils % (A) 63 %; Platelet Count 225 k/uL (150-450); RBC 4.71 m/uL (3.80-5.40); RDW 13.2 % (11.5-15.5); WBC 9.2 k/uL (3.8-10.6)
--- NOTE | 2024-04-25 17:43 | CT ---
EXAMINATION TYPE: CT brain wo con CT DLP: 1121.4 mGycm, Automated exposure control for dose reduction was used. DATE OF EXAM: 04/25/2024 5:19 PM COMPARISON: 02/13/2024. CLINICAL INDICATION:Female, 38 years old with history of syncopal episode, head trauma, syncope TECHNIQUE: Brain: Axial CT images of the brain were obtained with coronal and sagittal reformats created and rev iewed. Contrast used: None. Oral contrast used: None. FINDINGS: Brain: Extra-axial spaces: No abnormal extra-axial fluid collections. Ventricular system: Within normal limits Cerebral parenchyma: No acute intraparenchymal hemorrhage or mass effect. The oleary-white junction is well differentiated. Cerebellum: Unremarkable. Mass effect: No evidence of midline shift. Intracranial vasculature: unremarkable Soft tissues: Normal. Calvarium/osseous structures: No depressed skull fracture. Paranasal sinuses and mastoid air cells: Mild scattered paranasal sinus disease. Visualized orbits: Orbital contents are intact. IMPRESSION: No acute intracranial process.
[2024-04-25 17:57] LABS: ALT 21 U/L (4-34); AST 23 U/L (14-36); African American GFR (CKD) >90 (>60 ml/min/1.73 sqM); Albumin 3.9 g/dL (3.5-5.0); Alkaline Phosphatase 99 U/L (38-126); Anion Gap 8 mmol/L; Blood Urea Nitrogen 21 mg/dL (7-17); Calcium 9.2 mg/dL (8.4-10.2); Carbon Dioxide 23 mmol/L (22-30); Chloride 106 mmol/L (98-107); Glucose 270 mg/dL (74-99); Non-African American GFR(CKD) >90 (>60 ml/min/1.73 sqM); Potassium 3.9 mmol/L (3.5-5.1); Sodium 137 mmol/L (137-145); Total Bilirubin 0.5 mg/dL (0.2-1.3); Total Protein 6.2 g/dL (6.3-8.2)
[2024-04-25 18:16] LABS: Prothrombin Time 10.7 sec (10.0-12.5)
[2024-04-25] MEDS: MORPHINE SULFATE 2 MG/ML SYRINGE IVP ONE ×2 (18:28→19:38)
[2024-04-25 19:52] VITALS: BP 132/73; PULSE 86; RESP 18; TEMP 97.9
== END 2024-04-25 19:52 | disposition home or self-care (01) ==
LOC: EC 14:23
DX: S76.011A Strain of muscle, fascia and tendon of right hip, initial encounter (principal); R55 Syncope and collapse; F17.200 Nicotine dependence, unspecified, uncomplicated; Z88.1 Allergy status to other antibiotic agents; Z88.2 Allergy status to sulfonamides; Z88.5 Allergy status to narcotic agent; Z88.8 Allergy status to other drugs, medicaments and biological substances; Z88.0 Allergy status to penicillin; Z86.73 Personal history of transient ischemic attack (TIA), and cerebral infarction without residual deficits; W01.10XA Fall on same level from slipping, tripping and stumbling with subsequent striking against unspecified object, initial encounter
CPT/HCPCS: 36415; 93005; 85379; 80053; 84484; 85025; 85610; 85730; 81025; 73502; 71046; 70450; 99284; 96374; 96376; J2270

== ENCOUNTER → 2024-08-06 | Outpatient (CLI) | payer MEDICARE, OTHER ==
[2024-08-06 11:23] LABS: African American GFR (CKD) >90 (>60 ml/min/1.73 sqM); Blood Urea Nitrogen 15 mg/dL (7-17); Non-African American GFR(CKD) >90 (>60 ml/min/1.73 sqM)
--- NOTE | 2024-08-06 13:49 | CT ---
EXAMINATION TYPE: CT abdomen pelvis w con CT DLP: 1798 mGycm, Automated exposure control for dose reduction was used. DATE OF EXAM: 08/06/2024 1:38 PM COMPARISON: CT chest abdomen and pelvis 06/28/2023, CT abdomen and pelvis 12/28/2022, PET/CT 03/05/2022 CLINICAL INDICATION:Female, 39 years old with history of C56.9 ovarian ca; Ovarian ca, routine follow up TECHNIQUE: Standard CT of the abdomen and pelvis following the administration of 100 cc of Isovue 3 00 IV contrast material and oral contrast. Coronal and sagittal reformats were performed. FINDINGS: LOWER CHEST: Posterior dependent subsegmental atelectasis is noted. ABDOMEN LIVER: Focal fatty infiltration adjacent to the falciform ligament in segment IVb GALLBLADDER AND BILE DUCTS: Unremarkable. PANCREAS: Unremarkable. SPLEEN: Unremarkable. ADRENAL GLANDS: Unremarkable. KIDNEYS AND URETERS: No evidence of hydronephrosis or renal calculus. The kidneys enhance symmetrical ly. Contrast is demonstrated within both collecting systems on the delayed phase. PELVIS BLADDER: Incompletely distended but grossly unremarkable. REPRODUCTIVE: The uterus is surgically absent. No suspicious soft tissue at the vaginal cuff. ABDOMEN & PELVIS STOMACH AND BOWEL: Stomach and duodenum are unremarkable. No focal bowel wall thickening or surroundi ng inflammatory changes. The appendix is within normal limits. Enteric contrast reaches the mid small bowel. No evidence of bowel obstruction. PERITONEUM: No evidence of pneumoperitoneum or free fluid. VASCULATURE: No evidence of aortic aneurysm. MUSCULOSKELETAL: No acute osseous abnormalities. No aggressive osseous lesion. LYMPH NODES: No evidence for lymphadenopathy. SOFT TISSUE/ABDOMINAL WALL: Postsurgical changes in the midline lower anterior wall. IMPRESSION: No suspicious changes to suggest recurrent or metastatic ovarian cancer. [facility], , 08/06/2024 1:47 PM
== END | disposition home or self-care (01) ==
LOC: RADCTMAIN 10:35
PROVIDERS: ATTEND Internal Medicine Hematology & Oncology
DX: C56.9 Malignant neoplasm of unspecified ovary (principal); E11.9 Type 2 diabetes mellitus without complications; I67.89 Other cerebrovascular disease; Z71.3 Dietary counseling and surveillance
CPT/HCPCS: 82565; 84520; 74177; 36415; Q9967

== ENCOUNTER → 2024-08-28 | Outpatient (CLI) | payer MEDICARE, OTHER ==
[2024-08-28 13:02] VITALS: BP 116/77; PULSE 80; RESP 17; TEMP 98.8
--- NOTE | 2024-08-28 13:39 | P.HPOB ---
History of Present Illness H&P Date: 08/28/24 Chief Complaint: The patient is here for her routine gynecologic exam and ma mmogram. This is a 39-year-old -0-1-0 with an LMP of 2016. The patient is status post FRANCY/BSO in 2016 for stage III mixed mllerian endometrial cancer. The patient is without gynecologic complaints. A Pap smear was done on 01/12/2022 which was negative and the high risk HPV testing was positive (-16, -18). She recently had a CT scan of the abdomen and pelvis as ordered by her oncologist stalin nd this was done on 08/06/2024 and was unremarkable. Review of Systems She has lost about 68 pounds over the past 2 years. She attributes this to diet, exercise and Mounjaro. Respiratory: Occasional asthma symptoms improved with her inhaler. She denies cardiac or GI problems. Past Medical History Past Medical History: Asthma, Cancer, CVA/TIA, Diabetes Mellitus, GERD/Reflux Additional Past Medical History / Comment(s): TIA 2015, 2018-no residual effects. 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 No other history of STDs. History of Any Multi-Drug Resistant Organisms: None Reported Past Surgical History: Adenoidectomy, Hysterectomy, Tonsillectomy Additional Past Surgical History / Comment(s): colonoscopy. FRANCY/BSO for uterine cancer in 2015. Past Anesthesia/Blood Transfusion Reactions: No Reported Reaction Past Psychological History: Anxiety Smoking Status: Current every day smoker (Half a pack of cigarettes per day.) Past Alcohol Use History: None Reported Additional Past Alcohol Use History / Comment(s): 1/2ppd for 20+ yrs. Past Drug Use History: None Reported Additional History: She was in 2014. She is currently not sexually active. 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 - Past Family History Mother Family Medical History: Diabetes Mellitus Additional Family Medical History / Comment(s): 2005. Maternal aunt had brain cancer. Father Additional Family Medical History / Comment(s): "Fluid and lungs". 1990. Paternal aunt had breast cancer. Brother(s) Family Medical History: Hyperlipidemia, Hypertension Medications and Allergies Home Medications Medication Instructions Recorded Confirmed Type oxyCODONE-APAP 10-325MG [Percocet 1 tab PO TID PRN 11/16/18 02/13/24 History 10-325 mg] Atorvastatin [Lipitor] 40 mg PO DAILY 08/08/19 02/13/24 History lisinopriL [Zestril] 5 mg PO DAILY 08/08/19 02/13/24 History metFORMIN HCL [metFORMIN HCL ER] 750 mg PO HS 03/28/20 02/13/24 History EPINEPHrine (Auto Inject) [Epipen] 0.3 mg IM ONCE PRN 05/11/21 02/13/24 History Famotidine [Pepcid] 20 mg PO HS PRN 05/11/21 02/13/24 History methocarbamoL [Robaxin] 750 mg PO BID 05/11/21 02/13/24 History Aspirin EC [Ecotrin Low Dose] 81 mg PO DAILY 06/01/22 02/13/24 History Gabapentin [Neurontin] 300 mg PO TID 06/01/22 02/13/24 History Pioglitazone [Actos] 30 mg PO DAILY 06/01/22 02/13/24 History Albuterol Nebulized [Ventolin 2.5 mg INHALATION RT-QID PRN 04/28/23 02/13/24 History Nebulized] Metoprolol Succinate (ER) [Toprol 25 mg PO DAILY 04/28/23 02/13/24 History Xl] Fluticasone Propion/Salmeterol 1 puff INHALATION RT-BID 02/13/24 02/13/24 History [Fluticasone-Salmeterol 100-50] Tirzepatide [Mounjaro] 2.5 mg SQ Q7D 02/13/24 02/13/24 History Morphine Sulfate 15 mg PO DAILY 08/28/24 08/28/24 History Allergies Allergy/AdvReac Type Severity Reaction Status Date / Time ampicillin Allergy Unknown Verified 08/28/24 12:57 Childhood baclofen Allergy Anaphylaxis Verified 08/28/24 12:57 /Rash ciprofloxacin [From Cipro] Allergy Anaphylaxis Verified 08/28/24 12:57 hydromorphone [From Dilaudid] Allergy Rash/Hives Verified 08/28/24 12:57 ketorolac [From Toradol] Allergy Rash/Hives Verified 08/28/24 12:57 promethazine [From Phenergan] Allergy Rash/Hives Verified 08/28/24 12:57 sulfamethoxazole Allergy Rash/Hives Verified 08/28/24 12:57 [From Bactrim] trimethoprim [From Bactrim] Allergy Rash/Hives Verified 08/28/24 12:57 Exam Vital Signs Temp Pulse Resp BP Pulse Ox 08/28/24 13:00 98.8 F 80 17 116/77 97 Intake and Output 08/27/24 08/28/24 08/28/24 22:59 06:59 14:59 Other: Weight 94.347 kg Height 5 feet 3 inches, weight 208 pounds, BMI 36.8. This is a well-developed well-nourished white female who is alert and oriented times 3 in no acute distress. HEENT: Within normal limits. NECK: Supple without mass or thyromegaly. CHEST AND LUNGS: Clear to auscultation. HEART: Regular rate and rhythm. BREASTS: Are without mass or discharge. AXILLARY EXAM: Negative for adenopathy. BACK: Negative for CVA tenderness. ABDOMEN: Soft, nontender, without palpable masses. PELVIC EXAM: External genitalia appears normal with minimal atrophy. Vagina appears normal with mild atrophy. There is no evidence of prolapse. Bimanual examination is negative for mass or tenderness. RECTAL EXAM: Rectovaginal exam is negative for mass or tenderness and is negative for occult blood. EXTREMITIES: Nontender. Additional studies: CT scan of the abdomen and pelvis on 08/06/2024 was unremarkable for signs of metastatic disease. IMPRESSION: 1. 39-year-old female status post FRANCY/BSO for stage IIIc grade 2 mixed mllerian endometrial cancer of the uterus in 2015. No evidence of recurrence on exam today. 2. Previous negative Pap smear with positive high-risk HPV testing (-16, -18) on 01/12/2022. Pap smear testing was continued because of her history of stage III uterine cancer. PLAN: 1. Pap smear cotest was performed. 2. Self breast awareness was discussed with the patient. We have also discussed symptoms associated with inflammatory breast cancer. 3. Screening mammogram will be done today. 4. Osteoporosis prevention was discussed. I have stressed the importance of adequate calcium, vitamin D and regular exercise. Recommended amounts of calcium and vitamin D were also discussed. 5. She will continue to see Dr. Varela, her oncologist. 6. She was advised to return in one year for her annual well woman exam.
--- NOTE | 2024-08-29 08:10 | MM ---
Reason for Exam: Screening (asymptomatic). Baseline mammogram. Patient History: Menarche at age 12. Patient has no children. Left ovary removed at age 31. Right ovary removed at age 31. Hysterectomy at age 31. Ovarian cancer, age 31. Paternal aunt had breast cancer under age 50. Risk Values: Lorraine 5 year model risk: 0.6%. NCI Lifetime model risk: 11.1%. Prior Study Comparison: Patient's first Mammogram. Tissue Density: There are scattered areas of fibroglandular density. Findings: Analyzed By CAD. There is no suspicious group of microcalcifications or new suspicious mass in either breast. Benign-appearing calcifications. Overall Assessment: Benign, BI-RAD 2 Management: Screening Mammogram of both breasts in 1 year. . Patient should continue monthly self-breast exams. A clinical breast exam by your physician is recommended on an annual basis. This exam should not preclude additional follow-up of suspicious palpable abnormalities. Note on Lorraine scores and lifetime risk: 1. A Lorraine score greater than 3% is considered moderate risk. If this is the case, consider specialist referral to assess eligibility for a risk reducing agent. 2. If overall lifetime risk for the development of breast cancer is 20% or higher, the patient may qualify for future screening with alternating mammogram and breast MRI. [facility], , 08/29/2024 8:07 AM. Electronically signed and approved by: Jmimy Martinez M.D. Radiologis
== END ==
LOC: WWCWWP 12:12
PROVIDERS: ATTEND Obstetrics & Gynecology
DX: Z12.31 Encounter for screening mammogram for malignant neoplasm of breast (principal); F17.210 Nicotine dependence, cigarettes, uncomplicated; Z85.42 Personal history of malignant neoplasm of other parts of uterus; Z90.710 Acquired absence of both cervix and uterus; Z90.722 Acquired absence of ovaries, bilateral; Z88.8 Allergy status to other drugs, medicaments and biological substances; Z88.2 Allergy status to sulfonamides; Z88.5 Allergy status to narcotic agent; Z88.1 Allergy status to other antibiotic agents; Z80.3 Family history of malignant neoplasm of breast
CPT/HCPCS: 77063; 77067

== ENCOUNTER 2024-09-13 14:04 | Emergency (ER) | payer MEDICARE, OTHER ==
--- NOTE | 2024-09-13 15:22 | ED ---
Chest Pain HPI - General Source: patient, RN notes reviewed Mode of arrival: ambulatory Limitations: no limitations - History of Present Illness MD Complaint: chest pain Onset/Timin -: hour(s) <Casey Arroyo - Last Filed: 09/13/24 15:20> - General Source: patient, RN notes reviewed, old records reviewed <Tc Tariq - Last Filed: 09/13/24 23:31> - General Chief Complaint: Chest Pain Stated Complaint: Chest pains Time Seen by Provider: 09/13/24 14:18 - History of Present Illness Initial Comments: Quick note: This is a 39-year-old female presenting with stabbing chest pain x 3 hours. Patient endorses associated shortness of breath, lightheadedness and dizziness. Endorses periods of tachycardia and to the 200s sporadically for the past several years as well. Endorses history of TIA in 2016 but otherwise denies significant heart history. (Casey Arroyo) Patient is a 39-year-old female who presents emergency department complaining of sudden onset of chest pain. Describes the pain as stabbing sharp to the center of her sternum. States it radiated out over both ribs. Worse with movement and on palpation. Started suddenly earlier. States she has had it recurrent in the past. States it is nearly resolved at this time. Denies any obvious injuries. States that it is hurting worse with movement of her arms or chest. Denies any shortness of breath, nausea, vomiting, diaphoresis. Denies any cardiac history. Has a history of asthma. Has a history of diabetes. Currently is resting comfortably with her dog in her lap. Presents for further evaluation at this time. History of TIA remotely in 2016. Occasional tachycardia as well. Originally seen as a quick note I evaluated the patient when she was placed in a hallway bed. (Tc Tariq) - Related Data Home Medications Medication Instructions Recorded Confirmed lisinopriL [Zestril] 5 mg PO DAILY 08/08/19 09/13/24 metFORMIN HCL [metFORMIN HCL ER] 750 mg PO W/SUPPER 03/28/20 09/13/24 methocarbamoL [Robaxin] 750 mg PO BID PRN 05/11/21 09/13/24 Aspirin EC [Ecotrin Low Dose] 81 mg PO DAILY 06/01/22 09/13/24 Gabapentin [Neurontin] 300 mg PO TID 06/01/22 09/13/24 Pioglitazone [Actos] 30 mg PO DAILY 06/01/22 09/13/24 Metoprolol Succinate (ER) [Toprol 25 mg PO DAILY 04/28/23 09/13/24 Xl] Fexofenadine HCl [Mirian Allergy] 180 mg PO DAILY 09/13/24 09/13/24 Naloxone HCl [Narcan] 4 mg NASAL DIRECTED PRN 09/13/24 09/13/24 Oxycodone Myristate [Xtampza ER] 9 mg PO BID 09/13/24 09/13/24 Pantoprazole [Protonix] 40 mg PO DAILY 09/13/24 09/13/24 Thyroid, Pork [Garwood Thyroid] 30 mg PO DAILY 09/13/24 09/13/24 Tirzepatide [Mounjaro] 5 mg SQ CHEEK 09/13/24 09/13/24 oxyCODONE-APAP 7.5-325MG [Percocet 1 tab PO TID PRN 09/13/24 09/13/24 7.5-325 mg] Previous Rx's Medication Instructions Recorded Cyclobenzaprine [Flexeril] 5 mg PO TID PRN 5 Days #15 tablet 09/13/24 Allergies Allergy/AdvReac Type Severity Reaction Status Date / Time ampicillin Allergy Unknown Verified 09/13/24 17:39 Childhood baclofen Allergy Anaphylaxis Verified 09/13/24 17:39 /Rash ciprofloxacin [From Cipro] Allergy Anaphylaxis Verified 09/13/24 17:39 hydromorphone [From Dilaudid] Allergy Rash/Hives Verified 09/13/24 17:39 ketorolac [From Toradol] Allergy Rash/Hives Verified 09/13/24 17:39 promethazine [From Phenergan] Allergy Rash/Hives Verified 09/13/24 17:39 sulfamethoxazole Allergy Rash/Hives Verified 09/13/24 17:39 [From Bactrim] trimethoprim [From Bactrim] Allergy Rash/Hives Verified 09/13/24 17:39 Review of Systems ROS Other: All systems not noted in ROS Statement are negative. <Casey Arroyo - Last Filed: 09/13/24 15:20> ROS Other: All systems not noted in ROS Statement are negative. <Tc Tariq - Last Filed: 09/13/24 23:31> ROS Statement: Those systems with pertinent positive or pertinent negative responses have been documented in the HPI. Review of Systems: CONST: Denies fever EYES: Denies blurry vision ENT: Denies nasal congestion C/V: Endorses chest pain RESP: Denies shortness of breath GI: Denies abdominal pain : Denies dysuria SKIN: Denies rash. MSK: Denies joint pain. NEURO: Denies headache (Tc Tariq) EKG Findings - EKG Comments: EKG Findings:: 12-lead Electrocardiogram Interpretation Note. EKG was reviewed and interpreted by myself. 12-lead ECG performed at 1525 is interpreted by me as revealing normal sinus rhythm at a rate of 64 beats per minute. [place] is normal. ME interval is 122 ms, QRS duration is 103 ms, QTc is 405 ms.. There were no ST or T wave abnormalities to suggest myocardial ischemia or injury. R wave progression across the precordium was satisfactory. By my interpretation this EKG is non-diagnostic for acute ischemia. 12-lead Electrocardiogram Interpretation Note. EKG was reviewed and interpreted by myself. 12-lead ECG performed at 1845 is interpreted by me as revealing normal sinus rhythm at a rate of 62 beats per minute. Mac[place] is normal. ME interval is 129 ms, QRS duration is 96 ms, QTc is 414 ms.. There were no ST or T wave abnormalities to suggest myocardial ischemia or injury. R wave progression across the precordium was satisfactory. By my interpretation this EKG is non-diagnostic for acute ischemia. Hemic changes when compared with EKG from earlier today. - EKG Results: EKG: interpreted by ERMD <Tc Tariq - Last Filed: 09/13/24 23:31> Past Medical History Past Medical History: Asthma, Cancer, CVA/TIA, Diabetes Mellitus, GERD/Reflux Additional Past Medical History / Comment(s): TIA 2015, 2018-no residual effects. 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 No other history of STDs. History of Any Multi-Drug Resistant Organisms: None Reported Past Surgical History: Adenoidectomy, Hysterectomy, Tonsillectomy Additional Past Surgical History / Comment(s): colonoscopy. FRANCY/BSO for uterine cancer in 2016. Past Anesthesia/Blood Transfusion Reactions: No Reported Reaction Past Psychological History: Anxiety Smoking Status: Current every day smoker Past Alcohol Use History: None Reported Past Drug Use History: None Reported - Past Family History Mother Family Medical History: Diabetes Mellitus Additional Family Medical History / Comment(s): 2005. Maternal aunt had brain cancer. Father Additional Family Medical History / Comment(s): "Fluid and lungs". 1990. Paternal aunt had breast cancer. Brother(s) Family Medical History: Hyperlipidemia, Hypertension <Casey Arroyo - Last Filed: 09/13/24 15:20> General Exam Limitations: no limitations <Casey Arroyo - Last Filed: 09/13/24 15:20> <Tc Tariq - Last Filed: 09/13/24 23:31> - General Exam Comments Initial Comments: Visual Physical Exam Vital signs reviewed General: Well-appearing, nontoxic, no acute distress. Patient seated in wheelchair Head: Normocephalic, atraumatic Eyes: PERRLA, EOMI ENT: Airway patent Chest: Nonlabored breathing Skin: No visual rash, normal skin tone Neuro: Alert and oriented 3 Musculoskeletal: No gross abnormalities (Casey Arroyo) General: Appears in no acute distress. HEAD: Normal with no signs of head trauma. EYES: EOMI ENT: Hearing grossly intact, normal oropharynx. RESPIRATORY: Clear breath sounds bilaterally. No wheezes, rales, or rhonchi. C/V: Regular rate and rhythm. S1 and S2 auscultated, no edema, peripheral pulses 2+ and intact throughout. Chest wall pain worse with palpation. ABD: Abd is soft, nontender, nondistended EXT: Normal range of motion, no obvious deformity. Chest wall pain worsened on palpation and with movements of the torso or arms. States this is the pain she is experiencing. SKIN: No rashes or lesions observed on exposed skin. NEURO: Alert and oriented x 4. (Tc Tariq) Course Vital Signs 09/13/24 09/13/24 09/13/24 14:05 15:31 16:16 Temperature 97.5 F L Pulse Rate 74 70 68 Pulse Rate [ 64 Dynamics Ax Developer ] Respiratory 16 18 Rate Blood Pressure 117/85 98/48 O2 Sat by Pulse 97 98 Oximetry 12/09/2509/13/24 09/13/24 16:24 17:08 18:52 Temperature Pulse Rate 71 69 65 Pulse Rate [ Dynamics Ax Developer ] Respiratory 18 18 Rate Blood Pressure 108/69 95/63 O2 Sat by Pulse 95 96 Oximetry 09/13/24 19:59 Temperature 97.8 F Pulse Rate 66 Pulse Rate [ Dynamics Ax Developer ] Respiratory 18 Rate Blood Pressure 114/68 O2 Sat by Pulse 97 Oximetry Chest Pain MDM <Casey Arroyo - Last Filed: 09/13/24 15:20> <Tc Tariq - Last Filed: 09/13/24 23:31> - MDM I completed the quick note portion of this chart signed DANNA Flannery (Casey Arroyo) Was pt. sent in by a medical professional or institution ([facility], [facility], urgent care, hospital, or residential...) When possible be specific @ -No Did you speak to anyone other than the patient for history (EMS, parent, family, police, friend...)? What history was obtained from this source @ -No Did you review nursing and triage notes (agree or disagree)? Why? @ -I reviewed and agree with nursing and triage notes Were old charts reviewed (outside hosp., previous admission, EMS record, old EKG, old radiological studies, urgent care reports/EKG's, residential records)? Report findings @ -Compared today's EKG with EKG from April 25, 2024. No acute changes when compared with that EKG. Differential Diagnosis (chest pain, altered mental status, abdominal pain women, abdominal pain men, vaginal bleeding, weakness, fever, dyspnea, syncope, headache, dizziness, GI bleed, back pain, seizure, CVA, palpatations, mental health, musculoskeletal)? @ -Differential Chest Pain: Stable Angina, Unstable Angina, STEMI, NSTEMI Aortic Dissection, Pneumothorax, Musculoskeletal, Esophageal Spasm GERD, Cholecystitis, Pancreatitis, Zoster, this is not meant to be an all-inclusive list. EKG interpreted by me (3pts min.). @ -As above X-rays interpreted by me (1pt min.). @ -X-ray shows no obvious acute cardiopulmonary process. CT interpreted by me (1pt min.). @ -None done U/S interpreted by me (1pt. min.). @ -None done What testing was considered but not performed or refused? (CT, X-rays, U/S, labs)? Why? @ -None What meds were considered but not given or refused? Why? @ -Consider Toradol however patient declines as she states she is allergic to it. Did you discuss the management of the patient with other professionals (professionals i.e. , PA, [facility], lab, RT, psych nurse, public health social worker, pheresis specialist, teacher, commercial escrow officer, major case detective)? Give summary @ -No Was smoking cessation discussed for >3mins.? @ -No Was critical care preformed (if so, how long)? @ -No Were there social determinants of health that impacted care today? How? (Homelessness, low income, unemployed, alcoholism, drug addiction, transportation, low edu. Level, literacy, decrease access to med. care, senior living, rehab)? @ -No Was there de-escalation of care discussed even if they declined (Discuss DNR or withdrawal of care, Hospice)? DNR status @ -No What co-morbidities impacted this encounter? (DM, HTN, Smoking, COPD, CAD, Cancer, CVA, ARF, Chemo, Hep., AIDS, mental health diagnosis, sleep apnea, morbid obesity)? @ -None Was patient admitted / discharged? Hospital course, mention meds given and route, prescriptions, significant lab abnormalities, going to OR and other pertinent info. @ -Based on patient's presentation and physical exam, appears to be having chest wall pain. However we will obtain cardiac workup. She was in agreement this plan. She will receive IV fluids, Tylenol, aspirin, DuoNeb, morphine. She was in agreement this plan. Vital signs are within acceptable limits. EKG shows no signs of acute ischemia.Patient's pain improved following analgesia medications. Chest x-ray unremarkable. Laboratory studies unremarkable including negative troponin. Mild hypokalemia 3.4 and hypomagnesemia of 1.3 which are replenished. Discussed results with the patient. We will obtain a second 3-hour troponin however we both agree she likely is experiencing chest wall pain/musculoskeletal pain. She was in agreement this plan. Repeat troponin and EKG unremarkable. Repeat troponin is undetectable. Discussed results. She will be discharged home at this time. Strict return precautions discussed. She was in agreement this plan. Heart score is low. I will provide the patient with a prescription for Flexeril. I instructed the patient to follow up with their PCP in the next 1-3 days. I explained that the patient should return to the emergency department if they experience any worsening symptoms. Strict return precautions were discussed with the patient. The patient expressed understanding of these instructions. I answered all questions that the patient had. The patient was discharged home in good condition with their prescriptions and follow up information. Undiagnosed new problem with uncertain prognosis? @ -No Drug Therapy requiring intensive monitoring for toxicity (Heparin, Nitro, Insulin, Cardizem)? @ -No Were any procedures done? @ -No Diagnosis/symptom? @ -Chest wall pain, hypomagnesemia, hypokalemia Acute, or Chronic, or Acute on Chronic? @ -Acute Uncomplicated (without systemic symptoms) or Complicated (systemic symptoms)? @ -Uncomplicated Side effects of treatment? @ -None Exacerbation, Progression, or Severe Exacerbation] @ -No Poses a threat to life or bodily function? @ -Unlikely at this time (Tc Tariq) Disposition <Casey Arroyo - Last Filed: 09/13/24 15:20> Is patient prescribed a controlled substance at d/c from ED?: No Time of Disposition: 19:53 <Tc Tariq - Last Filed: 09/13/24 23:31> Clinical Impression: Chest wall pain, Hypomagnesemia, Hypokalemia Disposition: HOME SELF-CARE Condition: Good Instructions (If sedation given, give patient instructions): Chest Wall Pain (ED) Prescriptions: Cyclobenzaprine [Flexeril] 5 mg PO TID PRN 5 Days #15 tablet PRN Reason: Pain Referrals: Jerilyn Knott MD [Primary Care Provider] - 1-2 days
[2024-09-13 15:41] VITALS: RESP 18
[2024-09-13] MEDS: ACETAMINOPHEN TAB 500 MG TAB PO STA (15:48)
[2024-09-13] MEDS: ASPIRIN 81 MG PO STA (15:48)
[2024-09-13] MEDS: SODIUM CHLORIDE 0.9% 1,000 ML IV STA (15:48)
[2024-09-13] MEDS: MORPHINE SULFATE 4 MG/ML SYRINGE IVP STA ×2 (15:49→18:55)
[2024-09-13 16:04] LABS: Basophils % (A) 1 %; Eosinophils # (A) 0.2 k/uL (0-0.7); Eosinophils % (A) 2 %; HCT 42.9 % (34.0-46.0); HGB 13.9 gm/dL (11.4-16.0); Lymphocytes # (A) 1.7 k/uL (1.0-4.8); Lymphocytes % (A) 24 %; MCH 28.9 pg (25.0-35.0); MCHC 32.3 g/dL (31.0-37.0); MCV 89.3 fL (80.0-100.0); Mean Platelet Volume 8.6; Monocytes # (A) 0.5 k/uL (0-1.0); Monocytes % (A) 7 %; Neutrophils # (A) 4.5 k/uL (1.3-7.7); Neutrophils % (A) 64 %; Platelet Count 206 k/uL (150-450); RBC 4.81 m/uL (3.80-5.40); RDW 13.7 % (11.5-15.5)
--- NOTE | 2024-09-13 16:10 | XR ---
EXAMINATION TYPE: XR chest 2V DATE OF EXAM: 09/13/2024 4:00 PM COMPARISON: Chest radiographs from 04/25/2024 CLINICAL INDICATION: Female, 39 years old with history of Chest Pain; TECHNIQUE: XR chest 2V Frontal and lateral views of the chest. FINDINGS: Lungs/Pleura: There is no evidence of pleural effusion, focal consolidation, or pneumothorax. Pulmonary vascularity: Unremarkable. Heart/mediastinum: Cardiomediastinal silhouette is unremarkable. Musculoskeletal: No acute osseous pathology. Other findings: None Lines/Tubes:[id number] projecting over the right hemithorax with distal tip at the cavoatrial junc tion. IMPRESSION: No acute cardiopulmonary disease/process. [facility], , 09/13/2024 4:08 PM
[2024-09-13] MEDS: IPRATROPIUM-ALBUTEROL 3 ML NEB INHALATION STA (16:13)
[2024-09-13 16:15] LABS: ALT 88 U/L (4-34); AST 53 U/L (14-36); African American GFR (CKD) >90 (>60 ml/min/1.73 sqM); Alkaline Phosphatase 87 U/L (38-126); Anion Gap -1 mmol/L; Blood Urea Nitrogen 9 mg/dL (7-17); Calcium 7.6 mg/dL (8.4-10.2); Carbon Dioxide 27 mmol/L (22-30); Chloride 114 mmol/L (98-107); Glucose 100 mg/dL (74-99); Magnesium 1.3 mg/dL (1.6-2.3); Non-African American GFR(CKD) >90 (>60 ml/min/1.73 sqM); Potassium 3.4 mmol/L (3.5-5.1); Sodium 140 mmol/L (137-145); Total Bilirubin 0.5 mg/dL (0.2-1.3); Total Protein 5.1 g/dL (6.3-8.2)
[2024-09-13 16:16] LABS: Partial Thromboplastin Time 22.8 sec (22.0-30.0); Prothrombin Time 11.3 sec (10.0-12.5)
[2024-09-13 16:24] LABS: NT-Pro-B-Type Natriuretic Pept 76 pg/mL
[2024-09-13] MEDS: MAGNESIUM SULFATE-D5W PMX 1 GM in DEXTROSE/WATER 1 100ML.BAG IVPB ONE (17:09)
[2024-09-13] MEDS: POTASSIUM CHLORIDE ER 20 MEQ TAB.ER PO STA (17:10)
[2024-09-13 20:00] VITALS: BP 114/68; PULSE 66; TEMP 97.8
== END 2024-09-13 20:00 | disposition home or self-care (01) ==
LOC: EC 14:04
DX: R07.89 Other chest pain (principal); E83.42 Hypomagnesemia; E87.6 Hypokalemia; F17.200 Nicotine dependence, unspecified, uncomplicated; Z88.2 Allergy status to sulfonamides; Z88.8 Allergy status to other drugs, medicaments and biological substances; Z88.5 Allergy status to narcotic agent; Z88.1 Allergy status to other antibiotic agents
CPT/HCPCS: 36415; 94640; 93005; 85379; 83880; 80053; 83735; 84484; 85025; 85610; 85730; 71046; 99285; 96365; 96375; 96376; 96361; J2270; J3475

== ENCOUNTER 2024-09-30 14:28 | Emergency (ER) | payer MEDICARE, OTHER ==
[2024-09-30 15:32] VITALS: RESP 20
[2024-09-30] MEDS: ACETAMINOPHEN TAB 500 MG TAB PO STA (15:38)
--- NOTE | 2024-09-30 16:58 | ED ---
URI HPI - General Chief Complaint: Upper Respiratory Infection Stated Complaint: Flu symptoms Time Seen by Provider: 09/30/24 16:41 Source: patient, EMS Mode of arrival: EMS Limitations: no limitations - History of Present Illness Initial Comments: 39-year-old female presenting with chief complaint of URI-like symptoms. Symptoms started yesterday. Patient is having a cough and congestion. Today she started having fever nausea and vomiting. She is having generalized abdominal discomfort with no localized pain. No chest pain or difficulty breathing. She admits to allover body aches. - Related Data Home Medications Medication Instructions Recorded Confirmed lisinopriL [Zestril] 5 mg PO DAILY 08/08/19 09/13/24 metFORMIN HCL [metFORMIN HCL ER] 750 mg PO W/SUPPER 03/28/20 09/13/24 methocarbamoL [Robaxin] 750 mg PO BID PRN 05/11/21 09/13/24 Aspirin EC [Ecotrin Low Dose] 81 mg PO DAILY 06/01/22 09/13/24 Gabapentin [Neurontin] 300 mg PO TID 06/01/22 09/13/24 Pioglitazone [Actos] 30 mg PO DAILY 06/01/22 09/13/24 Metoprolol Succinate (ER) [Toprol 25 mg PO DAILY 04/28/23 09/13/24 Xl] Fexofenadine HCl [Mirian Allergy] 180 mg PO DAILY 09/13/24 09/13/24 Naloxone HCl [Narcan] 4 mg NASAL DIRECTED PRN 09/13/24 09/13/24 Oxycodone Myristate [Xtampza ER] 9 mg PO BID 09/13/24 09/13/24 Pantoprazole [Protonix] 40 mg PO DAILY 09/13/24 09/13/24 Thyroid, Pork [[place] Thyroid] 30 mg PO DAILY 09/13/24 09/13/24 Tirzepatide [Mounjaro] 5 mg SQ CHEEK 09/13/24 09/13/24 oxyCODONE-APAP 7.5-325MG [Percocet 1 tab PO TID PRN 09/13/24 09/13/24 7.5-325 mg] Previous Rx's Medication Instructions Recorded Cyclobenzaprine [Flexeril] 5 mg PO TID PRN 5 Days #15 tablet 09/13/24 Ondansetron Odt [Zofran Odt] 4 mg PO Q8HR PRN #20 tab 09/30/24 Oseltamivir [Tamiflu] 75 mg PO Q12HR 5 Days #10 cap 09/30/24 Allergies Allergy/AdvReac Type Severity Reaction Status Date / Time ampicillin Allergy Unknown Verified 09/30/24 15:32 Childhood baclofen Allergy Anaphylaxis Verified 09/30/24 15:32 /Rash ciprofloxacin [From Cipro] Allergy Anaphylaxis Verified 09/30/24 15:32 hydromorphone [From Dilaudid] Allergy Rash/Hives Verified 09/30/24 15:32 ketorolac [From Toradol] Allergy Rash/Hives Verified 09/30/24 15:32 promethazine [From Phenergan] Allergy Rash/Hives Verified 09/30/24 15:32 sulfamethoxazole Allergy Rash/Hives Verified 09/30/24 15:32 [From Bactrim] trimethoprim [From Bactrim] Allergy Rash/Hives Verified 09/30/24 15:32 Review of Systems ROS Statement: Those systems with pertinent positive or pertinent negative responses have been documented in the HPI. ROS Other: All systems not noted in ROS Statement are negative. Past Medical History Past Medical History: Asthma, Cancer, CVA/TIA, Diabetes Mellitus, GERD/Reflux Additional Past Medical History / Comment(s): TIA 2015, 2018-no residual effects. 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 No other history of STDs. History of Any Multi-Drug Resistant Organisms: None Reported Past Surgical History: Adenoidectomy, Hysterectomy, Tonsillectomy Additional Past Surgical History / Comment(s): colonoscopy. FRANCY/BSO for uterine cancer in 2015. Past Anesthesia/Blood Transfusion Reactions: No Reported Reaction Past Psychological History: Anxiety Smoking Status: Current every day smoker Past Alcohol Use History: None Reported Past Drug Use History: None Reported - Past Family History Mother Family Medical History: Diabetes Mellitus Additional Family Medical History / Comment(s): 2005. Maternal aunt had brain cancer. Father Additional Family Medical History / Comment(s): "Fluid and lungs". 1990. Paternal aunt had breast cancer. Brother(s) Family Medical History: Hyperlipidemia, Hypertension General Exam Limitations: no limitations General appearance: alert, in no apparent distress Head exam: Present: atraumatic, normocephalic, normal inspection Eye exam: Present: normal appearance, EOMI Neck exam: Present: normal inspection. Absent: meningismus Respiratory exam: Present: normal lung sounds bilaterally. Absent: respiratory distress, wheezes, rales, rhonchi, stridor Cardiovascular Exam: Present: regular rate, normal rhythm, normal heart sounds. Absent: systolic murmur, diastolic murmur, rubs, gallop, clicks Neurological exam: Present: alert, oriented X3 Psychiatric exam: Present: normal affect, normal mood Skin exam: Present: normal color Course Vital Signs 09/30/24 15:29 Temperature 102.1 F H Pulse Rate 106 H Respiratory 20 Rate Blood Pressure 127/75 O2 Sat by Pulse 96 Oximetry Medical Decision Making - Medical Decision Making Was pt. sent in by a medical professional or institution (Dr. PA, STOCKROOM KEEPER, urgent care, hospital, or fci...) When possible be specific @ -No Did you speak to anyone other than the patient for history (EMS, parent, family, police, friend...)? What history was obtained from this source @ -No Did you review nursing and triage notes (agree or disagree)? Why? @ -I reviewed and agree with nursing and triage notes Were old charts reviewed (outside hosp., previous admission, EMS record, old EKG, old radiological studies, urgent care reports/EKG's, fci records)? Report findings @ -No old charts were reviewed Differential Diagnosis (chest pain, altered mental status, abdominal pain women, abdominal pain men, vaginal bleeding, weakness, fever, dyspnea, syncope, headache, dizziness, GI bleed, back pain, seizure, CVA, palpatations, mental health, musculoskeletal)? @ -Differential includes influenza, RSV, COVID, this is not an all-inclusive list EKG interpreted by me (3pts min.). @ -As above X-rays interpreted by me (1pt min.). @ -None done CT interpreted by me (1pt min.). @ -None done U/S interpreted by me (1pt. min.). @ -None done What testing was considered but not performed or refused? (CT, X-rays, U/S, labs)? Why? @ -None What meds were considered but not given or refused? Why? @ -None Did you discuss the management of the patient with other professionals (professionals i.e. , PA, STOCKROOM KEEPER, lab, RT, psych nurse, licensed social worker, waste minimization technician, teacher, commissary officer, special education case manager)? Give summary @ -No Was smoking cessation discussed for >3mins.? @ -No Was critical care preformed (if so, how long)? @ -No Were there social determinants of health that impacted care today? How? (Homelessness, low income, unemployed, alcoholism, drug addiction, transportation, low edu. Level, literacy, decrease access to med. care, fdc, rehab)? @ -No Was there de-escalation of care discussed even if they declined (Discuss DNR or withdrawal of care, Hospice)? DNR status @ -No What co-morbidities impacted this encounter? (DM, HTN, Smoking, COPD, CAD, Cancer, CVA, ARF, Chemo, Hep., AIDS, mental health diagnosis, sleep apnea, morbid obesity)? @ -None Was patient admitted / discharged? Hospital course, mention meds given and route, prescriptions, significant lab abnormalities, going to OR and other pertinent info. @ -39-year-old female presenting with chief complaint of URI-like symptoms nausea vomiting and fever. Workup is initiated by triage. Patient is positive for influenza A. Symptoms started less than 48 hours ago and patient will be started on Tamiflu. She is given antipyretics and Zofran here in the ER. She is educated on today's findings and management plan. Follow-up with PCP. Report back to ER with any new or worsening symptoms. Discussed return parameters and answered all questions. Patient conveyed verbal understanding and agreed to the plan. I discussed this case in detail with my attending Dr. Lazaro Undiagnosed new problem with uncertain prognosis? @ -No Drug Therapy requiring intensive monitoring for toxicity (Heparin, Nitro, Insu kalpana, Cardizem)? @ -No Were any procedures done? @ -No Diagnosis/symptom? @ -Influenza A Acute, or Chronic, or Acute on Chronic? @ -Acute Uncomplicated (without systemic symptoms) or Complicated (systemic symptoms)? @ -Complicated Side effects of treatment? @ -No Exacerbation, Progression, or Severe Exacerbation? @ -No Poses a threat to life or bodily function? How? (Chest pain, [place], [place], pneumonia, PE, COPD, DKA, ARF, appy, cholecystitis, CVA, Diverticulitis, Homicidal, Suicidal, threat to staff... and all critical care pts) @ -Low likelihood - Lab Data Lab Results 09/30/24 Range/Units 15:34 Influenza Type A (PCR) Detected A (Not Detectd) Influenza Type B (PCR) Not Detected (Not Detectd) RSV (PCR) Not Detected (Not Detectd) SARS-CoV-2 (PCR) Not Detected (Not Detectd) Disposition Clinical Impression: Influenza Disposition: HOME SELF-CARE Condition: Good Instructions (If sedation given, give patient instructions): Influenza (ED) Additional Instructions: Follow-up with your PCP. Report back to ER with any new or worsening symptoms. Take medication as prescribed. Prescriptions: Oseltamivir [Tamiflu] 75 mg PO Q12HR 5 Days #10 cap Ondansetron Odt [Zofran Odt] 4 mg PO Q8HR PRN #20 tab PRN Reason: Nausea Is patient prescribed a controlled substance at d/c from ED?: No Referrals: Jerilyn Knott MD [Primary Care Provider] - 1-2 days Time of Disposition: 16:57
[2024-09-30] MEDS: ONDANSETRON ODT 4 MG TAB PO STA (17:31)
[2024-09-30 17:43] VITALS: BP 116/86; PULSE 98; TEMP 100.1
== END 2024-09-30 17:43 | disposition home or self-care (01) ==
LOC: EC 14:28
DX: J10.1 Influenza due to other identified influenza virus with other respiratory manifestations (principal); F17.200 Nicotine dependence, unspecified, uncomplicated; Z88.0 Allergy status to penicillin; Z88.6 Allergy status to analgesic agent; Z88.1 Allergy status to other antibiotic agents; Z88.2 Allergy status to sulfonamides; Z88.8 Allergy status to other drugs, medicaments and biological substances
CPT/HCPCS: 87636; 99283

== ENCOUNTER 2025-04-13 15:59 | Emergency (ER) | payer OTHER ==
[2025-04-13 16:03] VITALS: TEMP 97.8
[2025-04-13] MEDS: ASPIRIN 81 MG PO STA (16:31)
[2025-04-13] MEDS: NITROGLYCERIN SL TABS 0.4 MG TAB SUBLINGUAL STA (16:32)
[2025-04-13 16:55] LABS: Basophils # (A) 0.04 10*3/uL (0.00-0.10); Basophils % (A) 0.4 %; Eosinophils # (A) 0.14 10*3/uL (0.04-0.35); Eosinophils % (A) 1.4 %; HCT 45.7 % (37.2-46.3); HGB 15.6 g/dL (12.0-15.0); Lymphocytes # (A) 2.36 10*3/uL (0.90-5.00); Lymphocytes % (A) 23.9 %; MCH 30.1 pg (27.0-32.0); MCHC 34.1 g/dL (32.0-37.0); MCV 88.2 fL (80.0-97.0); Monocytes # (A) 0.57 10*3/uL (0.20-1.00); Monocytes % (A) 5.8 %; Neutrophils # (A) 6.74 10*3/uL (1.80-7.70); Neutrophils % (A) 68.3 %; Platelet Count 261 10*3/uL (140-440); RBC 5.18 10*6/uL (4.10-5.20); RDW 13.4 % (11.5-14.5); WBC 9.87 10*3/uL (4.50-10.00)
[2025-04-13 17:07] LABS: INR 1.0 (<1.2); Partial Thromboplastin Time 22.9 sec (22.0-30.0); Prothrombin Time 11.1 sec (10.0-12.5)
[2025-04-13 17:10] LABS: ALT 23 U/L (4-34); AST 29 U/L (14-36); African American GFR (CKD) >90 (>60 ml/min/1.73 sqM); Albumin 4.5 g/dL (3.5-5.0); Alkaline Phosphatase 87 U/L (38-126); Anion Gap 11 mmol/L; Blood Urea Nitrogen 18 mg/dL (7-17); Calcium 10.0 mg/dL (8.4-10.2); Carbon Dioxide 29 mmol/L (22-30); Chloride 99 mmol/L (98-107); Glucose 155 mg/dL (74-99); Lipase 75 U/L (23-300); Magnesium 1.4 mg/dL (1.6-2.3); Non-African American GFR(CKD) >90 (>60 ml/min/1.73 sqM); Potassium 4.7 mmol/L (3.5-5.1); Sodium 139 mmol/L (137-145); Total Protein 7.3 g/dL (6.3-8.2)
--- NOTE | 2025-04-13 17:17 | ED ---
Chest Pain HPI - General Chief Complaint: Chest Pain Stated Complaint: elev hr/left side numb Time Seen by Provider: 04/13/25 16:17 Source: patient, RN notes reviewed Mode of arrival: wheelchair Limitations: no limitations - History of Present Illness Initial Comments: This is a 39-year-old female who presents to the emergency department for chest pain. States that started an hour prior to arrival when she was crying. States that it is a centralized pain. Unsure how to characterize it otherwise. She has some shortness of breath. Also states that the left side of her face is painful, particularly in her teeth making it hard to chew. Denies any history of cardiac issues in the past such as heart attacks or stents. MD Complaint: chest pain - Related Data Home Medications Medication Instructions Recorded Confirmed lisinopriL [Zestril] 5 mg PO DAILY 08/08/19 09/13/24 metFORMIN HCL [metFORMIN HCL ER] 750 mg PO W/SUPPER 03/28/20 09/13/24 methocarbamoL [Robaxin] 750 mg PO BID PRN 05/11/21 09/13/24 Aspirin EC [Ecotrin Low Dose] 81 mg PO DAILY 06/01/22 09/13/24 Gabapentin [Neurontin] 300 mg PO TID 06/01/22 09/13/24 Pioglitazone [Actos] 30 mg PO DAILY 06/01/22 09/13/24 Metoprolol Succinate (ER) [Toprol 25 mg PO DAILY 04/28/23 09/13/24 Xl] Fexofenadine HCl [Mirian Allergy] 180 mg PO DAILY 09/13/24 09/13/24 Naloxone HCl [Narcan] 4 mg NASAL DIRECTED PRN 09/13/24 09/13/24 Oxycodone Myristate [Xtampza ER] 9 mg PO BID 09/13/24 09/13/24 Pantoprazole [Protonix] 40 mg PO DAILY 09/13/24 09/13/24 Thyroid, Pork [[place] Thyroid] 30 mg PO DAILY 09/13/24 09/13/24 Tirzepatide [Mounjaro] 5 mg SQ CHEEK 09/13/24 09/13/24 oxyCODONE-APAP 7.5-325MG [Percocet 1 tab PO TID PRN 09/13/24 09/13/24 7.5-325 mg] Previous Rx's Medication Instructions Recorded Cyclobenzaprine [Flexeril] 5 mg PO TID PRN 5 Days #15 tablet 09/13/24 Ondansetron Odt [Zofran Odt] 4 mg PO Q8HR PRN #20 tab 09/30/24 Oseltamivir [Tamiflu] 75 mg PO Q12HR 5 Days #10 cap 09/30/24 clindamycin HCL 300 mg PO QID 7 Days #28 capsule 04/13/25 Allergies Allergy/AdvReac Type Severity Reaction Status Date / Time ampicillin Allergy Unknown Verified 04/13/25 16:03 Childhood baclofen Allergy Anaphylaxis Verified 04/13/25 16:03 /Rash ciprofloxacin [From Cipro] Allergy Anaphylaxis Verified 04/13/25 16:03 hydromorphone [From Dilaudid] Allergy Rash/Hives Verified 04/13/25 16:03 ketorolac [From Toradol] Allergy Rash/Hives Verified 04/13/25 16:03 promethazine [From Phenergan] Allergy Rash/Hives Verified 04/13/25 16:03 sulfamethoxazole Allergy Rash/Hives Verified 04/13/25 16:03 [From Bactrim] trimethoprim [From Bactrim] Allergy Rash/Hives Verified 04/13/25 16:03 Review of Systems ROS Statement: Those systems with pertinent positive or pertinent negative responses have been documented in the HPI. ROS Other: All systems not noted in ROS Statement are negative. Past Medical History Past Medical History: Asthma, Cancer, CVA/TIA, Diabetes Mellitus, GERD/Reflux Additional Past Medical History / Comment(s): TIA 2015, 2018-no residual effects. 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 No other history of STDs. History of Any Multi-Drug Resistant Organisms: None Reported Past Surgical History: Adenoidectomy, Hysterectomy, Tonsillectomy Additional Past Surgical History / Comment(s): colonoscopy. FRANCY/BSO for uterine cancer in 2015. Past Anesthesia/Blood Transfusion Reactions: No Reported Reaction Past Psychological History: Anxiety Smoking Status: Current every day smoker Past Alcohol Use History: None Reported Past Drug Use History: None Reported - Past Family History Mother Family Medical History: Diabetes Mellitus Additional Family Medical History / Comment(s): 2005. Maternal aunt had brain cancer. Father Additional Family Medical History / Comment(s): "Fluid and lungs". 1990. Paternal aunt had breast cancer. Brother(s) Family Medical History: Hyperlipidemia, Hypertension General Exam Limitations: no limitations General appearance: alert, in no apparent distress Head exam: Present: atraumatic, normocephalic, normal inspection ENT exam: Present: TM's normal bilaterally, normal external ear exam, other (Mild fullness to the left side of the face with tenderness to the teeth and gumline.) Respiratory exam: Present: normal lung sounds bilaterally. Absent: respiratory distress, wheezes, rales, rhonchi, stridor Cardiovascular Exam: Present: regular rate, normal rhythm GI/Abdominal exam: Present: soft. Absent: distended, tenderness Neurological exam: Present: alert, oriented X3, CN II-XII intact Psychiatric exam: Present: normal affect, normal mood Skin exam: Present: warm, dry, intact, normal color. Absent: rash Course Vital Signs 04/13/25 04/13/25 04/13/25 16:00 19:24 22:07 Temperature 97.8 F Pulse Rate 92 73 84 Respiratory 22 18 20 Rate Blood Pressure 153/83 144/84 141/97 O2 Sat by Pulse 100 95 99 Oximetry Chest Pain MDM - MDM This is a 39-year-old female who presents to the emergency department for chest pain. Was pt. sent in by a medical professional or institution? @ -No Did you speak to anyone other than the patient for history? @ -No Did you review nursing and triage notes? @ -Yes, and I agree, it is accurate with regards to the patient's symptoms. Were old charts reviewed? @ -No Differential Diagnosis? @ -Differential Chest Pain: Stable Angina, Unstable Angina, STEMI, NSTEMI Aortic Dissection, Pneumothorax, Musculoskeletal, Esophageal Spasm GERD, Cholecystitis, Pancreatitis, Zoster, this is not meant to be an all-inclusive list. EKG interpreted by me (3pts min.)? @ -EKG interpreted by me demonstrating the following: Sinus rhythm. Ventricular rate 77 bpm, NE interval 129 ms, QRS duration 97 ms, QTc 388 ms. X-rays interpreted by me (1pt min.)? @ -Chest x-ray obtained, my interpretation identifies no localized consolidations or infiltrates. CT interpreted by me (1pt min.)? @ -Not obtained U/S interpreted by me (1pt. min.)? @ -Not obtained What testing was considered but not performed? (CT, X-rays, U/S, labs)? Why? @ -None What meds were considered but not given? Why? @ -None Did you discuss the management of the patient with other professionals? @ -No Did you reconcile home meds? @ -No Was smoking cessation discussed for >3mins.? @ -I discussed smoking cessation for greater than 3 minutes. The risk of smoking were discussed with the patient including but not limited to risks of cancer, stroke, coronary artery disease and COPD. Also discussed with patient were multiple methods of quitting smoking. Lastly we discussed the financial cost of smoking. Was critical care preformed (if so, how long)? @ -No Were there social determinants of health that impacted care today? How? (Homelessness, low income, unemployed, alcoholism, drug addiction, transportation, low edu. Level, literacy, decrease access to med. care, intermediate, rehab)? @ -No Was there de-escalation of care discussed even if they declined? (Discuss DNR or withdrawal of care, Hospice)? @ -No What co-morbidities impacted this encounter? (DM, HTN, Smoking, COPD, CAD, Cancer, CVA, Hep., AIDS, mental health diagnosis, sleep apnea, morbid obesity)? @ -Smoking, DM, asthma, GERD Was patient admitted / discharged? @ -Discharged. Lab work unremarkable. Chest x-ray reveals no acute process. We did a trial of aspirin and nitroglycerin on arrival. Patient refused the aspirin because she states that chewing it made her teeth hurt. She was agreeable to the nitroglycerin, however she had no improvement in pain afterwards. Pain was only controlled with morphine. The chest pain resolved rather quickly, however she continued to have dental pain. She was very tender along the teeth themselves and she had mild fullness suggestive of potential dental infection. We did obtain a repeat troponin after 3 hours which also remained negative. Advised that we will start the patient on antibiotics for potential dental infection. Clindamycin was prescribed. Advised follow-up with her PCP for reevaluation. Patient discharged home in stable condition. Case discussed with ED attending Dr. Lange. Return precautions reviewed in depth, the patient is instructed to return to the emergency department with any new, worsening, or concerning symptoms. Patient verbalized understanding. Undiagnosed new problem with uncertain prognosis? @ -None Drug Therapy requiring intensive monitoring for toxicity (Heparin, Nitro, Insulin, Cardizem)? @ -None Were any procedures done? @ -None Diagnosis/symptom? @ -Atypical chest pain, left-sided dental pain, dental infection Acute, or Chronic, or Acute on Chronic? @ -Acute Uncomplicated (without systemic symptoms) or Complicated (systemic symptoms)? @ -Uncomplicated Side effects of treatment? @ -None Exacerbation, Progression, or Severe Exacerbation] @ -Not applicable Poses a threat to life or bodily function? @ -No Disposition Clinical Impression: Chest pain, Pain, dental, Nicotine dependence, Dental infection Disposition: HOME SELF-CARE Instructions (If sedation given, give patient instructions): Chest Pain (ED), Noncardiac Chest Pain (ED) Additional Instructions: Return to the emergency department with any new, worsening, or concerning symptoms. Take the antibiotic as prescribed for 7 days. Follow up with your primary care provider in 1-2 days. Prescriptions: clindamycin HCL 300 mg PO QID 7 Days #28 capsule Is patient prescribed a controlled substance at d/c from ED?: No Referrals: None,Stated [REFERRING] - 1-2 days Time of Disposition: 21:31
--- NOTE | 2025-04-13 17:19 | XR ---
EXAMINATION TYPE: XR chest 2V DATE OF EXAM: 04/13/2025 5:02 PM COMPARISON: Chest radiographs from 09/13/2024 TECHNIQUE: XR chest 2V Frontal and lateral views of the chest. CLINICAL INDICATION:Female, 39 years old with history of Chest Pain; FINDINGS: Lungs/Pleura: There is no evidence of pleural effusion, focal consolidation, or pneumothorax. Pulmonary vascularity: Unremarkable. Heart/mediastinum: Cardiomediastinal silhouette is unremarkable. Musculoskeletal: No acute osseous pathology. Other findings: None Lines/Tubes: Right chest IJ approach Mediport catheter with distal tip terminating at the superior cavoatrial junc tion. IMPRESSION: No acute cardiopulmonary disease/process. [facility], , 04/13/2025 5:16 PM
[2025-04-13] MEDS: ONDANSETRON 4 MG/2 ML VIAL IVP STA (17:21)
[2025-04-13] MEDS: MAGNESIUM SULFATE-D5W PMX 1 GM in DEXTROSE/WATER 1 100ML.BAG IVPB SCH (17:22)
[2025-04-13] MEDS: MORPHINE SULFATE 4 MG/ML SYRINGE IVP STA ×2 (17:22→19:20)
[2025-04-13] MEDS: BENZOCAINE 10% MM ONE (20:49)
[2025-04-13] MEDS: CLINDAMYCIN 600 MG in DEXTROSE 5% IN WATER 50 ML IVPB STA (20:50)
[2025-04-13] MEDS: ONDANSETRON 4 MG ODT STARTER PACK 2 TAB BTL PO STA (21:57)
[2025-04-13] MEDS: ACET/COD 300 MG/30 MG STARTER PACK 6 TAB BTL PO STA (21:57)
[2025-04-13 22:09] VITALS: BP 141/97; PULSE 84; RESP 20
== END 2025-04-13 22:09 | disposition home or self-care (01) ==
LOC: EC 15:59
DX: R07.9 Chest pain, unspecified (principal); K04.7 Periapical abscess without sinus; F17.200 Nicotine dependence, unspecified, uncomplicated; E11.9 Type 2 diabetes mellitus without complications; J45.909 Unspecified asthma, uncomplicated; K21.9 Gastro-esophageal reflux disease without esophagitis; Z88.5 Allergy status to narcotic agent; Z88.2 Allergy status to sulfonamides; Z88.1 Allergy status to other antibiotic agents; Z88.8 Allergy status to other drugs, medicaments and biological substances
CPT/HCPCS: 36415; 93005; 80053; 83690; 83735; 84484; 85025; 85610; 85730; 71046; 99285; 96365; 96367; 96366 ×2; 96375 ×2; 96376; J2270; J2405; J3475; S0119; J0736